=== PATIENT | female | born 1950 | race Caucasian/White ===

== ENCOUNTER 2023-05-08 13:23 | Observation (INO) | payer OTHER ==
--- OUTSIDE RECORDS SUMMARY | 2023-05-08 13:31 | XMS REPORT | Clinical Summary ---
:1950 Author Organization [facility] MD [facility] Center Address [address] [place] [address] Care Team Providers Name Role Phone Josemanuel Bernard MD Unavailable Ted Arias MD Primary Care Provider Hermes Thomas MD Unavailable Lianna Johns MD Primary Care Provider Allergies Active Allergy Reactions Severity Noted Date Comments Codeine GI Intolerance 01/07/2010 Hydrocodone GI Intolerance 07/01/2021 N/V Propoxyphene GI Intolerance 04/18/2021 Propoxyphene Hcl 01/07/2010 Medications Medication Sig Dispensed Refills Start Date End Date Status montelukast Take 1 tablet (10 0 Active (SINGULAIR) 10 mg mg) by mouth tablet daily. simvastatin (ZOCOR) 20 Take 1 tablet by 0 Active mg tablet mouth daily. metoprolol succinate Take 1 tablet (25 0 05/26/2021 Active (TOPROL XL) 25 mg 24 mg) by mouth hr tablet daily. atorvastatin (LIPITOR) Take 1 tablet (10 0 1 Active 10 mg tablet mg) by mouth daily. losartan-hydrochloroth TAKE 1 TABLET BY 0 05/16/2021 Active iazide (HYZAAR) MOUTH DAILY 100-12.5 mg per tablet sertraline (ZOLOFT) 25 Take 1 tablet (25 0 Active mg tablet mg) by mouth every morning. mupirocin (BACTROBAN) Apply topically to 22 g 0 1 Active 2% affected area(s) ointmentIndications: twice daily. Intraductal carcinoma in situ of left breast traMADol (Ultram) 50 Take 1 tablet (50 12 tablet 0 06/26/2021 Active mg tabletIndications: mg) by mouth every Intraductal carcinoma 6 (six) hours as in situ of left breast needed for moderate pain or severe pain. Additional Information Patient not taking. Reason: No longer taking, Reported on 01/08/2022 traZODone (DESYREL) 25 mg Take 1 split tablet (25 0 Active half-tablet mg) by mouth. aspirin 325 mg tablet Take 1 tablet (325 mg) by 0 Active mouth. oxybutynin (DITROPAN-XL) 5 mg daily. 0 05/23/2022 Active 24 hr tablet peg 3350-electrolytes Mix as directed and drink 4000 mL 0 Active (Golytely) 236-22.74-6.74 g as directed. solutionIndications: Colonoscopy planned Active Problems Patient Care Coordination Note Formatting of this note might be differe nt from the original. 11/12/2022 Patient will have COVID testi ng at an outside facility - Toy Problem Noted Date Personal history of colon polyps 11/12/2022 Overview: Added automatically from request for leigh workman [id number] Other specified disorder of breast 07/01/2021 Estrogen receptor positive status (ER+) 06/20/2021 Intraductal papilloma of right breast 05/08/2021 Intraductal carcinoma in situ of left breast 1 Cancer Staging: Clinical stage from 2020: Stage 0 (cTis (DCIS), cN0, cM0, ER+, KS+, HER2: Not Assessed) - Signed by SELENE Price on 05/16/2021 Last Assessment & Plan: Formatting of th is note might be different from the original. Ms. Wiseman is a 71 y/o female s/p bilate ral segmental mastectomies, L SNBX and bilateral mastopexy by Drs. 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 She did not receive adjuvant XRT. She has no evidence of new disease or recurrence on breast exam or breast imaging. She has asked if she can eliminate US for future imaging surveillance. We will plan to bring her back in one year with mariano victor diagnostic MMG. Encounters Date Type Specialty Care Team Description 03/04/2023 Hospital Encounter Radiology Diana, Rickyuct SELENE Brown carcinoma in si tu of left breast 03/04/2023 Ancillary Procedure Radiology Carolynn Bernard PA Thyr oid nodule 03/04/2023 Hospital Encounter Lab Raeann Godoy, Kevinpl asm of PA uncertain behav ior of thyroid glan d 03/04/2023 Travel 02/22/2023 Telephone Radiology Ni Weber MA 01/29/2023 Orders Only Endocrine Surgery Raeann Godoy Neopla sm of PA uncertain behav ior of thyroid glan d (Primary Dx) 01/27/2023 Orders Only Breast Surgical Carolynn Bernard PA Thyroid nodule Oncology (Primary Dx) 01/25/2023 Orders Only Breast Surgical Carolynn Bernard PA Oncology 01/18/2023 Orders Only Breast Surgical Carolynn Bernard PA Thyroid nodule Oncology (Primary Dx) 11/12/2022 Office Visit Gastroenterology, Lianna Johns, Colonosc opy planned (Primary Dx); Hepatology & MD Personal histor y of colonic polyp Nutrition 11/12/2022 NPR Patient Access Ted Arias I, Georgina ASHRAF 11/12/2022 Prep for Surgery Gastroenterology, Shaquille Miller, Pers onal history of colon polyps (Primary Dx); Hepatology & PA Intraductal car cinoma in situ of left breast Nutrition 11/12/2022 Travel 11/10/2022 Travel after 05/08/2022 Immunizations Name Administration Dates Next Due Moderna SARS-CoV-2 Vaccination 01/27/2021, 12/28/2020 Surgical History Surgery Date Site/Laterality Comments HYSTERECTOMY 11/08/2010 - With BSO for ble eding 11/07/2011 SQUAMOUS CELL CARCINOMA 04/08/2021 - Left left jessie ek EXCISION 05/07/2021 BREAST BIOPSY 11/08/1986 - Left x 1; benign 11/07/1987 BREAST CYST ASPIRATION Bilateral multiple times OOPHORECTOMY KS MASTECTOMY PARTIAL 06/23/2021 Breast/Bilateral Procedure : SEGMENTAL MASTECTOMY - SEE D LOC; Surgeon: Ted Arias MD; Location: [facility]; Service: SURG ON C - [place] INJ RADIOACTIVE TRACER 06/23/2021 Breast/Left Proced ure: ISOTOPE FOR ID OF SENTINEL NODE INJECTIO N FOR SENTINEL NODE BIOPSY; Leigh geon: Ted Arias MD; Location: MAIN O R; Service: SURG ON C - [place] INTRAOP SENTINEL LYMPH 06/23/2021 Axilla/Left Proced ure: INTRAOPERATIVE NODE ID W/DYE INJECTION LYMPHATI C MAPPING; Surgeon: Ted Arias MD; Location: [facility]; Service: SURG ON C - [place] BX/EXC LYMPH NODE OPEN 06/23/2021 Axilla/Left Proced ure: SENTINEL NODE DEEP AXILLARY NODE BIOPSY - AXIL LA; Surgeon: Ted Arias MD; Location: MAIN O R; Service: SURG ON C - [place] MASTOPEXY 06/23/2021 Breast/Bilateral Procedure: MAST OPEXY; Surgeon: Johan Romano MD; Location: [facility] IN OR; Service: PLS - P LASTIC SURGERY Medical History Medical History Date Comments Hypertension Hypercholesterolemia Asthma Fibrocystic disease of breast Cyst of breast Family History Medical History Relation Name Comments Melanoma Brother Squamous cell carcinoma Brother On his h ead Colon cancer Father Breast cancer Mother after the s urgery 6 weeks later Relation Name Status Comments Brother Alive Father Mother Social History Tobacco Use Types Packs/Day Years Used Date Smoking Tobacco: Former Smokeless Tobacco: Never Tobacco Cessation: Counseling Given: Yes Comments: smoked for 2 years Alcohol Use Standard Drinks/Week Comments Yes 7 (1 standard drink = 0.6 oz pure alcoho l) nightly Sex Assigned at Date Recorded Female 04/10/2021 2:53 PM CDT Job Start Date Occupation Industry Not on file Not on file Not on file Obstetrics History Para Term AB IAB SAB Ectopic Multiple Living Live Births 2 2 Date Outcome GA Total Labor/2nd/3rd Weight Sex Delivery Anes PTL Rosario A 1 A5 Name Clin Labor Para Para Comments P: 2 Menarche: at age 11 parity: at age 17 history: 3 months total control pills use: 10 years total Hormone replacement therapy use: BioTe c ompounded x3 years LMP: hysterectomy at age 60 surgical men opause Bra Size:38 C Last Filed Vital Signs Vital Sign Reading Time Taken Comments Blood Pressure 148/64 03/04/2023 1:21 PM CDT Pulse 57 03/04/2023 1:21 PM CDT Temperature 36.6 C (97.9 F) 11/12/2022 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 Respiratory Rate 18 03/04/2023 1:21 PM CDT Oxygen Saturation 99% 03/04/2023 1:21 PM CDT Inhaled Oxygen Concentration - - Weight 74.1 kg (163 lb 5.8 oz) 11/12/2022 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 US THYROID FINE NEEDLE Routine 03/04/2023 1:50 Thyroid nodule Results for this ASPIRATION PM CDT procedure are i n the results section. US HEAD NECK SOFT Routine 03/04/2023 1:50 Thyroid nodule Resul ts for this TISSUE PM CDT procedure are i n the results section. CYTOLOGY IMAGE-GUIDED Routine 03/04/2023 12:27 Thyroid nodule Results for this FNA INTERPRETATION PM CDT procedure are in the results section. CYTOLOGY IMAGE-GUIDED Routine 03/04/2023 12:26 Thyroid nodule Results for this FNA INTERPRETATION PM CDT procedure are in the results section. CYTOLOGY IMAGE-GUIDED Routine 03/04/2023 12:26 Thyroid nodule Results for this FNA INTERPRETATION PM CDT procedure are in the results section. THYROID STIMULATING Routine 03/04/2023 9:45 Neoplasm of Resul ts for this HORMONE AM CDT uncertain behavior procedure are in of thyroid gland the results section. FREE THYROXINE Routine 03/04/2023 9:45 Neoplasm of Results fo r this AM CDT uncertain behavior procedure are in of thyroid gland the results section. after 05/08/2022 Results Mammography Digital Diagnostic Bilateral with Og (03/04/2023 2:56 PM CDT) Anatomical Region Laterality Modality Breast Bilateral Mammography Specimen (Source) Anatomical Collection Method Collection Time Re ceived Time Location / / Volume Laterality 03/04/2023 2:57 PM CDT Impressions 03/04/2023 2:57 PM CDT There is no mammographic evidence of malignancy. Follow-up mammogram in 1 year is recomme nded. BI-RADS Category 2: Benign Finding(s) Narrative 03/04/2023 2:57 PM CDT CLINICAL INDICATION: Patient is a 72 year old female and is s een for history of breast cancer MAMMO DIGITAL DIAGNOSTIC BILATERAL W BEKA O Digital Mammogram evaluated with Compute r Aided Detection (CAD). COMPARISON: The present examination has been compare d to prior imaging studies performed at an outside location on 10/12/2018, 10/17 and 10/22/2020, and at [facility] on 04/18/2021 and 01/07/2022. FINDINGS: There are scattered areas of fibroglandu lar density. 1: There is a post-surgical scar in th e axillary tail of the left breast. 2: There are post reduction changes in both breasts. Tomosynthesis performed in CC and MLO pr ojections. Procedure Note Pretty Tripp MD - 03/04/2023 CLINICAL INDICATION: Patient is a 72 year old female and is s een for history of breast cancer MAMMO DIGITAL DIAGNOSTIC BILATERAL W BEKA O Digital Mammogram evaluated with Compute r Aided Detection (CAD). COMPARISON: The present examination has been compare d to prior imaging studies performed at an outside location on 10/12/2018, 10/17 and 10/22/2020, and at [facility] on 04/18/2021 and 01/07/2022. FINDINGS: There are scattered areas of fibroglandu lar density. 1: There is a post-surgical scar in the axillary tail of the left breast. 2: There are post reduction changes in b oth breasts. Tomosynthesis performed in CC and MLO pr ojections. IMPRESSION: There is no mammographic evidence of mal ignancy. Follow-up mammogram in 1 year is recomme nded. BI-RADS Category 2: Benign Finding(s) Dora MORTON IMG MAMMOGRAPHY ORDERABLES US Thyroid Fine Needle Aspiration (03/04/2023 1:50 PM CDT) Anatomical Region Laterality Modality Neck Ultrasound Specimen (Source) Anatomical Collection Method Collection Time Re ceived Time Location / / Volume Laterality 03/04/2023 11:54 AM CDT Impressions 03/04/2023 2:04 PM CDT Multinodular thyroid. There are 3 nodule s in the right mid to right inferior thyroid that will be further investigated with aspiration biopsies. There is no evidence of lateral cervical lymphadenopathy. Procedure: Ultrasound-guided needle biop sy of 3 sites Indication: Newly discovered multinodula r thyroid with 3 nodules of concern. Power Line Installer And Repairer: Alesha Medication: 5 mL of lidocaine 1% solutio n for topical anesthesia. Consent: The procedure was discussed wit h the patient at length and its risks and benefits were explained. There was ample opportunity for questions. The patient was willing to sign informed consent. Technique: We identified the right-sided mid thyroid TR4 nodule, under ultrasound, cleansed the skin and applied topical anesthesia. A 20-gauge sheath system was placed into this nodule and a 22-gauge e chogenic needle was used to obtain sampl e from the nodule. A 2nd 22-gauge needle was also used for 2nd pass. Samples were prepared slides and also into culture medium for cell block as per the instructions of subtle pathology. The 2nd nodule we targeted to the partia lly cystic partially solid nodule with echogenic calcifications. The skin was prepared in the usual sterile manner with topical anesthesia applied. Similar to the 1st nodule, a 20-gauge sheath was place d and 2 22-gauge inner needles with echogenic markings was used to sample this nodule. We make slides and also provided cells for cell block as per the instructions of subtle pathology. The final inferior right thyroid nodule was accessed similarly using a 20-gauge needle mounted in a biopsy gun-type device under direct sonographic visualization. Samples were sent to cytopathology on slides as per the request. The patient tolerated the procedure well and no immediate ill effects were observed. Blood loss was minimal. Patient was discharged to home. Impression: Preliminary results indicates that the r ight mid thyroid TR4 nodule is colloid in nature, the complex partially cystic partially solid nodule with calcifications in the mid thyroid is atypical cells of unknown significance, while the inferior right thyroid lesion is indeterminate favor benign, all on preliminary results. Finals are pending. Narrative 03/04/2023 2:04 PM CDT FULL RESULT: Ivone Examination: US HEAD NECK SOFT TISSUE, U S THYROID FINE NEEDLE ASPIRATION on 03/04/2023 1:50 PM Clinical History and Indication: Breast carcinoma, during the course of the patient's care a enlarged thyroid was noted. 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 Comparison: None Technique: Multiple ultrasound images of performed of the thyroids and anterior cervical lymph nodes. Findings: The right-sided thyroid measur es 2.4 x 5.6 x 2.4 cm and is heterogeneous and multinodular in nature. Within the superior right thyroid a TR 3 lesion of 8 x 8 x 5 mm is present. Adjacent to it is a isoechoic solid nodule, TR 3 of 9 x 8 x 6 mm. Within the mid right thyroid is a hypoechoic solid nodule measuring 1.3 x 1.2 x 0.8 cm, TR 4 (biopsy target 1). Within the mid to inferior right thyroi d is a predominantly solid but with part ially cystic components lesion that measures about 2.5 x 2.1 x 2.1 cm. There are foci of echoing calcification within the lesion along with, though calcifications . This is a TR 4 lesion (biopsy target 2 ). In the inferior right thyroid is a hypoechoic solid lesion with multiple areas of coarse calcification that measures 1.2 x 0.8 x 0.9 cm. This is a TR 4 lesion (biopsy target 3). Within the left-sided isthmus we see a i soechoic solid nodule, TR 3 that measures 1.2 x 1.4 x 0.7 cm. The left-sided thyroid measures 1.6 x 2. 9 x 1.3 cm. Within the superior left thyroid adjacent to the isthmus is a small isoechoic solid nodule, TR 3 that measures 7 x 6 x 4 mm. Within the mid posterior thyroid we see a hypoechoic solid nodule with vague borders that measures about 7 x 7 x 6 mm, TR 4. The bilateral cervical lymph node chains show no evidence of lymph node enlargement. The preauricular lymph nodes and parotid glands as well as the submandibular salivary glands all are unremarkable with no focal lesions. Normal vocal cord motility could be demo nstrated. Procedure Note Raf Eduardo MD - 03/04/2023F ormatting of this note might be different from the original. FULL RESULT: Ivone Examination: US HEAD NECK SOFT TISSUE, U S THYROID FINE NEEDLE ASPIRATION on 03/04/2023 1:50 PM Clinical History and Indication: Breast carcinoma, during the course of the patient's care a enlarged thyroid was noted. 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 Comparison: None Technique: Multiple ultrasound images of performed of the thyroids and anterior cervical lymph nodes. Findings: The right-sided thyroid measur es 2.4 x 5.6 x 2.4 cm and is heterogeneous and multinodular in nature. Within the superior right thyroid a TR 3 lesion of 8 x 8 x 5 mm is present. Adjacent to it is a isoechoic solid nodule, TR 3 of 9 x 8 x 6 mm. Within the mid right thyroid is a hypoechoic solid nodule measuring 1.3 x 1.2 x 0.8 cm, TR 4 (biopsy target 1). Within the mid to inferior right thyroid is a predominantly solid but with partially cystic componen ts lesion that measures about 2.5 x 2.1 x 2.1 cm. There are foci of echoing calcification within the lesion along with, though calcifications. This is a TR 4 lesion (biopsy target 2). In the inferior right thyroid is a h ypoechoic solid lesion with multiple areas of coarse calcification that measures 1.2 x 0.8 x 0.9 cm. This is a TR 4 lesion (biopsy target 3). Within the left-sided isthmus we see a i soechoic solid nodule, TR 3 that measures 1.2 x 1.4 x 0.7 cm. The left-sided thyroid measures 1.6 x 2. 9 x 1.3 cm. Within the superior left thyroid adjacent to the isthmus is a small isoechoic solid nodule, TR 3 that measures 7 x 6 x 4 mm. Within the mid posterior thyroid we see a hypoechoic solid nodule with vague borde rs that measures about 7 x 7 x 6 mm, TR 4. The bilateral cervical lymph node chains show no evidence of lymph node enlargement. The preauricular lymph nodes and parotid glands as well as the submandibular salivary glands all are unremarkable with no focal lesions. Normal vocal cord motility could be demo nstrated. IMPRESSION: Multinodular thyroid. There are 3 nodule s in the right mid to right inferior thyroid that will be further investigated with aspiration biopsies. There is no evidence of lateral cervical lymphadenopathy. Procedure: Ultrasound-guided needle biop sy of 3 sites Indication: Newly discovered multinodula r thyroid with 3 nodules of concern. Power Line Installer And Repairer: Alesha Medication: 5 mL of lidocaine 1% solutio n for topical anesthesia. Consent: The procedure was discussed wit h the patient at length and its risks and benefits were explained. There was ample opportunity for questions. The patient was willing to sign informed consent. Technique: We identified the right-sided mid thyroid TR4 nodule, under ultrasound, cleansed the skin and applied topical anesthesia. A 20-gauge sheath system was placed into this nodule and a 22-gauge echogenic needle was used to obtain sample from the nodul e. A 2nd 22-gauge needle was also used for 2nd pass. Samples were prepared slides and also into culture medium for cell block as per the instructions of subtle pathology. The 2nd nodule we targeted to the partia lly cystic partially solid nodule with echogenic calcifications. The skin was prepared in the usual sterile manner with topical anesthesia applied. Similar to the 1st nodule, a 20-gauge sheath was placed and 2 22-gaug e inner needles with echogenic markings was used to sample this nodule. We make slides and also provided cells for cell block as per the instructions of subtle pathology. The final inferior right thyroid nodule was accessed similarly using a 20-gauge needle mounted in a biopsy gun-type device under direct sonographic visualization. Samples were sent to cytopathology on slides as per the request. The patient tolerated the procedure well and no immediate ill effects were observed. Blood loss was minimal. Patient was discharged to home. Impression: Preliminary results indicates that the r ight mid thyroid TR4 nodule is colloid in nature, the complex partially cystic partially solid nodule with calcifications in the mid thyroid is atypical cells of unknown significance, while the inferior right t hyroid lesion is indeterminate favor benign, all on preliminary results. Finals are pending. Carolynn MORTON IMHakeem US ORDERABLES US HEAD NECK SOFT TISSUE (03/04/2023 1:50 PM CDT) Anatomical Region Laterality Modality Head, Neck Ultrasound Specimen (Source) Anatomical Collection Method Collection Time Re ceived Time Location / / Volume Laterality 03/04/2023 11:54 AM CDT Impressions 03/04/2023 2:04 PM CDT Multinodular thyroid. There are 3 nodule s in the right mid to right inferior thyroid that will be further investigated with aspiration biopsies. There is no evidence of lateral cervical lymphadenopathy. Procedure: Ultrasound-guided needle biop sy of 3 sites Indication: Newly discovered multinodula r thyroid with 3 nodules of concern. Power Line Installer And Repairer: Alesha Medication: 5 mL of lidocaine 1% solutio n for topical anesthesia. Consent: The procedure was discussed wit h the patient at length and its risks and benefits were explained. There was ample opportunity for questions. The patient was willing to sign informed consent. Technique: We identified the right-sided mid thyroid TR4 nodule, under ultrasound, cleansed the skin and applied topical anesthesia. A 20-gauge sheath system was placed into this nodule and a 22-gauge e chogenic needle was used to obtain sampl e from the nodule. A 2nd 22-gauge needle was also used for 2nd pass. Samples were prepared slides and also into culture medium for cell block as per the instructions of subtle pathology. The 2nd nodule we targeted to the partia lly cystic partially solid nodule with echogenic calcifications. The skin was prepared in the usual sterile manner with topical anesthesia applied. Similar to the 1st nodule, a 20-gauge sheath was place d and 2 22-gauge inner needles with echogenic markings was used to sample this nodule. We make slides and also provided cells for cell block as per the instructions of subtle pathology. The final inferior right thyroid nodule was accessed similarly using a 20-gauge needle mounted in a biopsy gun-type device under direct sonographic visualization. Samples were sent to cytopathology on slides as per the request. The patient tolerated the procedure well and no immediate ill effects were observed. Blood loss was minimal. Patient was discharged to home. Impression: Preliminary results indicates that the r ight mid thyroid TR4 nodule is colloid in nature, the complex partially cystic partially solid nodule with calcifications in the mid thyroid is atypical cells of unknown significance, while the inferior right thyroid lesion is indeterminate favor benign, all on preliminary results. Finals are pending. Narrative 03/04/2023 2:04 PM CDT FULL RESULT: Ivone Examination: US HEAD NECK SOFT TISSUE, U S THYROID FINE NEEDLE ASPIRATION on 03/04/2023 1:50 PM Clinical History and Indication: Breast carcinoma, during the course of the patient's care a enlarged thyroid was noted. 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 Comparison: None Technique: Multiple ultrasound images of performed of the thyroids and anterior cervical lymph nodes. Findings: The right-sided thyroid measur es 2.4 x 5.6 x 2.4 cm and is heterogeneous and multinodular in nature. Within the superior right thyroid a TR 3 lesion of 8 x 8 x 5 mm is present. Adjacent to it is a isoechoic solid nodule, TR 3 of 9 x 8 x 6 mm. Within the mid right thyroid is a hypoechoic solid nodule measuring 1.3 x 1.2 x 0.8 cm, TR 4 (biopsy target 1). Within the mid to inferior right thyroi d is a predominantly solid but with part ially cystic components lesion that measures about 2.5 x 2.1 x 2.1 cm. There are foci of echoing calcification within the lesion along with, though calcifications . This is a TR 4 lesion (biopsy target 2 ). In the inferior right thyroid is a hypoechoic solid lesion with multiple areas of coarse calcification that measures 1.2 x 0.8 x 0.9 cm. This is a TR 4 lesion (biopsy target 3). Within the left-sided isthmus we see a i soechoic solid nodule, TR 3 that measures 1.2 x 1.4 x 0.7 cm. The left-sided thyroid measures 1.6 x 2. 9 x 1.3 cm. Within the superior left thyroid adjacent to the isthmus is a small isoechoic solid nodule, TR 3 that measures 7 x 6 x 4 mm. Within the mid posterior thyroid we see a hypoechoic solid nodule with vague borders that measures about 7 x 7 x 6 mm, TR 4. The bilateral cervical lymph node chains show no evidence of lymph node enlargement. The preauricular lymph nodes and parotid glands as well as the submandibular salivary glands all are unremarkable with no focal lesions. Normal vocal cord motility could be demo nstrated. Procedure Note Raf Eduardo MD - 03/04/2023F ormatting of this note might be different from the original. FULL RESULT: Ivone Examination: US HEAD NECK SOFT TISSUE, U S THYROID FINE NEEDLE ASPIRATION on 03/04/2023 1:50 PM Clinical History and Indication: Breast carcinoma, during the course of the patient's care a enlarged thyroid was noted. 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 Comparison: None Technique: Multiple ultrasound images of performed of the thyroids and anterior cervical lymph nodes. Findings: The right-sided thyroid measur es 2.4 x 5.6 x 2.4 cm and is heterogeneous and multinodular in nature. Within the superior right thyroid a TR 3 lesion of 8 x 8 x 5 mm is present. Adjacent to it is a isoechoic solid nodule, TR 3 of 9 x 8 x 6 mm. Within the mid right thyroid is a hypoechoic solid nodule measuring 1.3 x 1.2 x 0.8 cm, TR 4 (biopsy target 1). Within the mid to inferior right thyroid is a predominantly solid but with partially cystic componen ts lesion that measures about 2.5 x 2.1 x 2.1 cm. There are foci of echoing calcification within the lesion along with, though calcifications. This is a TR 4 lesion (biopsy target 2). In the inferior right thyroid is a h ypoechoic solid lesion with multiple areas of coarse calcification that measures 1.2 x 0.8 x 0.9 cm. This is a TR 4 lesion (biopsy target 3). Within the left-sided isthmus we see a i soechoic solid nodule, TR 3 that measures 1.2 x 1.4 x 0.7 cm. The left-sided thyroid measures 1.6 x 2. 9 x 1.3 cm. Within the superior left thyroid adjacent to the isthmus is a small isoechoic solid nodule, TR 3 that measures 7 x 6 x 4 mm. Within the mid posterior thyroid we see a hypoechoic solid nodule with vague borde rs that measures about 7 x 7 x 6 mm, TR 4. The bilateral cervical lymph node chains show no evidence of lymph node enlargement. The preauricular lymph nodes and parotid glands as well as the submandibular salivary glands all are unremarkable with no focal lesions. Normal vocal cord motility could be demo nstrated. IMPRESSION: Multinodular thyroid. There are 3 nodule s in the right mid to right inferior thyroid that will be further investigated with aspiration biopsies. There is no evidence of lateral cervical lymphadenopathy. Procedure: Ultrasound-guided needle biop sy of 3 sites Indication: Newly discovered multinodula r thyroid with 3 nodules of concern. Power Line Installer And Repairer: Alesha Medication: 5 mL of lidocaine 1% solutio n for topical anesthesia. Consent: The procedure was discussed wit h the patient at length and its risks and benefits were explained. There was ample opportunity for questions. The patient was willing to sign informed consent. Technique: We identified the right-sided mid thyroid TR4 nodule, under ultrasound, cleansed the skin and applied topical anesthesia. A 20-gauge sheath system was placed into this nodule and a 22-gauge echogenic needle was used to obtain sample from the nodul e. A 2nd 22-gauge needle was also used for 2nd pass. Samples were prepared slides and also into culture medium for cell block as per the instructions of subtle pathology. The 2nd nodule we targeted to the partia lly cystic partially solid nodule with echogenic calcifications. The skin was prepared in the usual sterile manner with topical anesthesia applied. Similar to the 1st nodule, a 20-gauge sheath was placed and 2 22-gaug e inner needles with echogenic markings was used to sample this nodule. We make slides and also provided cells for cell block as per the instructions of subtle pathology. The final inferior right thyroid nodule was accessed similarly using a 20-gauge needle mounted in a biopsy gun-type device under direct sonographic visualization. Samples were sent to cytopathology on slides as per the request. The patient tolerated the procedure well and no immediate ill effects were observed. Blood loss was minimal. Patient was discharged to home. Impression: Preliminary results indicates that the r ight mid thyroid TR4 nodule is colloid in nature, the complex partially cystic partially solid nodule with calcifications in the mid thyroid is atypical cells of unknown significance, while the inferior right t hyroid lesion is indeterminate favor benign, all on preliminary results. Finals are pending. Carolynn [facility] IMHakeem US ORDERABLES (ABNORMAL) Cytology Image-Guided FNA Interpretation (03/04/2023 12:27 PM CDT) Only the most recent of3 resultswithin the time period is included. Component Value Ref Test Analysis Performed Pathologis t Range Method Time At Signature Gross Specimens procured: 03/04/2023 [facility] Description 2 Diff Quik; 3 Pap Stain Slides 3:20 P M 10 ml, clear pink fluid in RPMI CDT 1 Cytospin Size: 1.2 x 0.9 x 0.8 cm Immediate assessment for specimen adequacy was made x1 by Dr Radha Guajardo. Immediate Adequate 03/04/2023 [facility] Assessment cellularity 3:20 PM CDT Major Indeterminate (A) 03/04/2023 [facility] Electronically Classification 3:20 PM amber d by Nancy Pollack CDT MD Casandra on 03/04/2023 at 3:20 PM Diagnosis Thyroid, right inferior lobe nodule, fine needle aspir ation: 03/04/2023 [facility] Electronically 3:20 PM signed by Nancy Pollack Indeterminate follicular les ion (low cellularity/minimal to no colloid), favor benign CDT MD Casandra on 03/04/2023 at 3:20 PM Comment The aspirate 03/04/2023 [facility] obtained is 3:20 PM sparse possessing CDT few follicular epithelial cells without nuclear atypia. It does not display the abundant colloid of a colloid nodule or the increased cellularity of a follicular lesion/neoplasm. Consequently, this sampling does not permit rendering a more definitive diagnosis. Clinical/radiolog ical correlation is indicated to determine the need for further close follow-up and/or re-aspiration. Retained/Biomark SR: 6 S 03/04/2023 [facility] er Testing 3:20 PM CDT Informational Some tests 03/04/2023 [facility] Points reported here may 3:20 PM have been CDT developed and performance characteristics determined by [facility]. These tests have not been specifically cleared or approved by the U.S. Food and Drug Administration. Specimen Anatomical Collection Method Collection Time Receive d Time (Source) Location / / Volume Laterality Fine Needle Asp 03/04/2023 12:27 03/04/20 23 1:18 (Thyroid, Right PM CDT PM CDT Lobe) Carolynn [facility] CYTOLOGY ORDERABLES Performing Organization Address City/State/ZIP Code Phon e Number [facility] [place] [phone] [facility] TSH (03/04/2023 9:45 AM CDT) athologist Signature TSH 2.23 0.27 - 4.20 [facility] mcunit/mL Comment: Note: New Methodology and Reference Ra nge change effective 02/24/2018 at 1400 Testing Performed at [facility], [address], [address], [place] [address] Specimen Anatomical Collection Method Collection Time Receive d Time (Source) Location / / Volume Laterality Blood 03/04/2023 9:45 AM 04/27/202 3 CDT 10:11 AM CDT Narrative [facility] - 03/04/2023 10:57 AM CDT Please schedule before consult with Dr. Romano Raeann [facility] BLOOD ORDERABLES Performing Organization Address City/State/ZIP Code Phon e Number [facility] [address] [place] [address] [address] Free T4 (03/04/2023 9:45 AM CDT) P athologist Signature T4 Free 1.22 0.93 - 1.70 [facility] ng/dL Comment: Testing Performed at [facility], [address], [address], [place] [address] Specimen Anatomical Collection Method Collection Time Receive d Time (Source) Location / / Volume Laterality Blood 03/04/2023 9:45 AM 3 CDT 10:11 AM CDT Narrative [facility] - 03/04/2023 10:57 AM CDT Please schedule before consult with Dr. Romano Raeann [facility] BLOOD ORDERABLES Performing Organization Address City/[facility]/ZIP Code Phon e Number [facility] [address] [place] [address] [address] after 05/08/2022 Insurance Payer Benefit Plan / Subscriber ID Effective Dates Phone Addre ss Type Group AETNA MEDICARE AETNA MEDICARE [id number] 2021-Presen [address] [place] [address] Nelly Wiseman Personal/Famil Self 1950 [phone] (Home) [place] [address] Advance Directives Code Status Date Activated Date Inactivated Comments Full Code 06/23/2021 7:30 PM 06/24/2021 12:45 AM Care Teams Nurse Companion Relationship Specialty Start Date End Date Josemanuel Bernard MD PCP - External Primary Internal Medicine 04/08/21 [facility] [place] [phone] Ted Arias MD PCP - General Melanoma Surgery 05/01/21 11/09/[address] [place] [id number] Lianna Johns MD PCP - General Gastroenterology, 11/10/22 11/10/[address] [place] [address] [place] [address] [facility] Hermes Thomas MD Physician Radiation Oncology 05/02/[address] [place] [id number]
--- OUTSIDE RECORDS SUMMARY | 2023-05-08 13:34 | XMS REPORT | Continuity of Care Document ---
:1950 Author Organization [facility] t Address [address] [facility]. [address] [place] [address] Care Team Providers Name Role Phone Joana ASHRAF, Josemanuel aMcario Primary Care Physician SYSTEM, PROVIDER NOT IN Attending Clinician Unavailable LAM TRIMBLE Attending Clinician Unavailable Stephanie Forrest Attending Clinician Unavailable BRIGITTE_Adriane_Ubaldo Attending Clinician Unavailable Salty Oliveira MD Attending Clinician [phone] Clay Simmons Attending Clinician Raeann Nye Attending Clinician Beto Plata Attending Clinician Ni Weber MA Attending Clinician Lam Trimble MD Attending Clinician Sami Thao MD, I Attending Clinician Shaquille Pham Attending Clinician Jody Eugene Attending Clinician Unavailable Donna David Attending Clinician Uzair ASHRAF, Lupe Hill Attending Clinician [phone] Lv Carbajal CLOSING COORDINATOR, Georgia Abbott Attending Clinician Nichelle Washington MA Attending Clinician Unavailable SHYAM SARAH Attending Clinician Unavailable UMU CUELLAR Attending Clinician Unavailable TENISHA KOVACS Attending Clinician Unavailable SAMI THAO I Attending Clinician Unavailable BETO GAMEZ Attending Clinician Unavailable RADHA RAI Attending Clinician Unavailable AMADEO RIVAS Attending Clinician Unavailable JADE DIEGO Attending Clinician Unavailable Josemanuel Bernard Attending Clinician Unavailable LAM TRIMBLE Admitting Clinician Unavailable Stephanie Forrest Admitting Clinician Unavailable BRIGITTE_Adriane_Diego_ Admitting Clinician Unavailable SALTY OLIVEIRA Admitting Clinician Unavailable UNDEFINED Admitting Clinician Unavailable SAMI THAO I Admitting Clinician Unavailable Physician, No Primary or Family Admitting Clinician Unavaila ble Payers Payer Name Policy Type Policy Number Effective Date Expiration Date S sammie [employer] MEDICARE PPO [id number] 2021 00:00:00 [employer] (MEDICARE [id number] 2021 REPLACEMENT PPO) 00:00:00 Problems Condition Condition Condition Status Onset Resolution Last Treating Co mments Source Name Details Category Date Date Treatment Clinician Date Personal Personal Disease Active Overview: Un bea history of history of 105 Formattin ity of colon colon 00:00: g of this [place] polyps polyps 00 note might be Aleks butler n from the Cancer original. Center Added automatic ally from request for surgery [id number] Tear of Tear of Problem Active 2021-11 Elise right Right 0-27 Orthope rotator Rotator 00:00: dic cuff Cuff 00 [facility] Pain of Pain of Problem Active Elise left Left 2-09 Orthope shoulder Shoulder 00:00: dic joint Joint 00 Sports Medicin e Other Other Disease Active Univers specified specified 8-24 ity of disorder disorder 00:00: [place] of breast of breast 00 MD [facility] Estrogen Estrogen Disease Active Unive rs receptor receptor 8-13 ity of positive positive 00:00: [place] status status 00 (ER+) (ER+) [facility] Impingemen Impingemen Problem Active A zalea t syndrome t Syndrome 05-29 Or thope of of 00:00: dic shoulder Shoulder 00 Sports region Region Medicin e Sprain of Sprain of Problem Active Aza nelida shoulder Shoulder 05-29 Orthop e and upper and Upper 00:00: dic arm Arm 00 Sports Medicin e Pain of Pain of Problem Active Elise right Right 05-29 Orthope shoulder Shoulder 00:00: dic joint Joint 00 Sports Medicin e Intraducta Intraducta Disease Active U nivers l l 7 ity of papilloma papilloma 00:00[place] right of right 00 breast breast [facility] Intraducta Intraducta Disease Active Last U nivers l l 624 Assessmen ity of carcinoma carcinoma 00:00: t & Plan: [place] in situ of in situ of 00 Formattin left left g of this [facility] breast breast note n might be Cancer different Center from the original. Ms. Nieto is a 71 y/o female s/p bilateral segmental mastectom ies, L SNBX and bilateral mastopexy by Drs. 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 She did not receive adjuvant XRT. She has no evidence of new disease or recurrenc e on breast exam or breast imaging. She has asked if she can eliminate US for future imaging surveilla nce. We will plan to bring her back in one year with bilateral diagnosti c MMG. Hip pain Hip Pain Problem Active Azale a 06-29 Orthope 00:00: dic 00 Sports Medicin e Knee pain Knee Pain Problem Active Aza nelida 06-29 Orthope 00:00: dic 00 Sports Medicin e Allergies, Adverse Reactions, Alerts Allergy Allergy Status Severity Reaction(s) Onset Inactive Treating Comm ents Source Name Type Date Date Clinician Propoxyp Propensi Active GI Method i hene ty to Intolerance 8-10 st adverse 00:00: Hospita reaction 00 l s to drug codeine DA Active U N/V [facility] 3-03 [place] 00:00: Orthope 00 dic Hospita l propoxyp DA Active U N/V 2-0 [facility] hene HCl 3-03 [place] 00:00: Orthope 00 dic Hospita l HYDROCOD DRUG Active Nausea 2021-0 MD ONE INGREDI 8-24 [place] 00:00: n 00 HYDROCOD DRUG Active Nausea 2021-0 MD ONE INGREDI 8-24 [place] 00:00: n 00 HYDROCOD DRUG Active Nausea 2021-0 MD ONE INGREDI 8-24 [place] 00:00: n 00 HYDROCOD DRUG Active Nausea 2021-0 MD ONE INGREDI 8-24 [place] 00:00: n 00 HYDROCOD DRUG Active Nausea 2021-0 MD ONE INGREDI 8-24 [place] 00:00: n 00 HYDROCOD DRUG Active Nausea 2021-0 MD ONE INGREDI 8-24 [place] 00:00: n 00 HYDROCOD DRUG Active Nausea 2021-0 MD ONE INGREDI 8-24 [place] 00:00: n 00 HYDROCOD DRUG Active Nausea 2021-0 MD ONE INGREDI 8-24 [place] 00:00: n 00 HYDROCOD DRUG Active Nausea 2021-0 MD ONE INGREDI 8-24 [place] 00:00: n 00 HYDROCOD DRUG Active Nausea 2021-0 MD ONE INGREDI 8-24 [place] 00:00: n 00 HYDROCOD DRUG Active Nausea 2021-0 MD ONE INGREDI 8-24 [place] 00:00: n 00 HYDROCOD DRUG Active Nausea 2021-0 MD ONE INGREDI 8-24 [place] 00:00: n 00 HYDROCOD DRUG Active Nausea 2021-0 MD ONE INGREDI 8-24 [place] 00:00: n 00 HYDROCOD DRUG Active Nausea 2021-0 MD ONE INGREDI 8-24 [place] 00:00: n 00 HYDROCOD DRUG Active Nausea 2021-0 MD ONE INGREDI 8-24 [place] 00:00: n 00 HYDROCOD DRUG Active Nausea 2021-0 MD ONE INGREDI 8-24 [place] 00:00: n 00 HYDROCOD DRUG Active Nausea 2021-0 MD ONE INGREDI 8-24 [place] 00:00: n 00 HYDROCOD DRUG Active Nausea 2021-0 MD ONE INGREDI 8-24 [place] 00:00: n 00 HYDROCOD DRUG Active Nausea 2021-0 MD ONE INGREDI 8-24 [place] 00:00: n 00 HYDROCOD DRUG Active Nausea 2021-0 MD ONE INGREDI 8-24 [place] 00:00: n 00 HYDROCOD DRUG Active Nausea 2021-0 MD ONE INGREDI 8-24 [place] 00:00: n 00 HYDROCOD DRUG Active Nausea 2021-0 MD ONE INGREDI 8-24 [place] 00:00: n 00 HYDROCOD DRUG Active Nausea 2021-0 MD ONE INGREDI 8-24 [place] 00:00: n 00 HYDROCOD DRUG Active Nausea 2021-0 MD ONE INGREDI 8-24 [place] 00:00: n 00 HYDROCOD DRUG Active Nausea 2021-0 MD ONE INGREDI 8-24 [place] 00:00: n 00 HYDROCOD DRUG Active Nausea 2021-0 MD ONE INGREDI 8-24 [place] 00:00: n 00 HYDROCOD DRUG Active Nausea 2021-0 MD ONE INGREDI 8-24 [place] 00:00: n 00 HYDROCOD DRUG Active Nausea 2021-0 MD ONE INGREDI 8-24 [place] 00:00: n 00 HYDROCOD DRUG Active Nausea 2021-0 MD ONE INGREDI 8-24 [place] 00:00: n 00 HYDROCOD DRUG Active Nausea 2021-0 MD ONE INGREDI 8-24 [place] 00:00: n 00 HYDROCOD DRUG Active Nausea 2021-0 MD ONE INGREDI 8-24 [place] 00:00: n 00 HYDROCOD DRUG Active Nausea 2021-0 MD ONE INGREDI 8-24 [place] 00:00: n 00 HYDROCOD DRUG Active Nausea 2021-0 MD ONE INGREDI 8-24 [place] 00:00: n 00 HYDROCOD DRUG Active Nausea 2021-0 MD ONE INGREDI 8-24 [place] 00:00: n 00 Hydrocod Propensi Active GI 2020-0 N/V Method i one ty to Intolerance 8-24 st adverse 00:00: Hospita reaction 00 l s to drug Hydrocod Propensi Active GI 2020-0 N/V Univer s one ty to Intolerance 8-24 ity o f adverse 00:00: [place] reaction 00 [facility] propoxyp DA Active U N/V 2020-0 [facility] hene HCl 8 [place] 00:00: Orthope 00 dic Hospita l codeine DA Active U N/V 2020-0 [facility] 8-05 [place] 00:00: Orthope 00 dic Hospita l propoxyp DA Active U 2020-0 [facility] hene HCl 8-05 [place] 00:00: Orthope 00 dic Hospita l codeine DA Active U 2020-0 [facility] 8-05 [place] 00:00: Orthope 00 dic Hospita l DARVON Allergy Active 2020-0 Elise to 05-29 Orthope substanc 00:00: dic e 00 Sports Medicin e Acetamin Allergy Active 2020-0 Elise ophen-co to 05-29 Orthope deine substanc 00:00: dic e 00 Sports Medicin e PROPOXYP DRUG Active Nausea 2021-0 MD HENE INGREDI 6-11 [place] 00:00: n 00 PROPOXYP DRUG Active Nausea 2021-0 MD HENE INGREDI 6-11 [place] 00:00: n 00 PROPOXYP DRUG Active Nausea 2021-0 MD HENE INGREDI 6-11 [place] 00:00: n 00 PROPOXYP DRUG Active Nausea 2021-0 MD HENE INGREDI 6-11 [place] 00:00: n 00 PROPOXYP DRUG Active Nausea 2021-0 MD HENE INGREDI 6-11 [place] 00:00: n 00 PROPOXYP DRUG Active Nausea 2021-0 MD HENE INGREDI 6-11 [place] 00:00: n 00 PROPOXYP DRUG Active Nausea 2021-0 MD HENE INGREDI 6-11 [place] 00:00: n 00 PROPOXYP DRUG Active Nausea 2021-0 MD HENE INGREDI 6-11 [place] 00:00: n 00 PROPOXYP DRUG Active Nausea 2021-0 MD HENE INGREDI 6-11 [place] 00:00: n 00 PROPOXYP DRUG Active Nausea 2021-0 MD HENE INGREDI 6-11 [place] 00:00: n 00 PROPOXYP DRUG Active Nausea 2021-0 MD HENE INGREDI 6-11 [place] 00:00: n 00 PROPOXYP DRUG Active Nausea 2021-0 MD HENE INGREDI 6-11 [place] 00:00: n 00 PROPOXYP DRUG Active Nausea 2021-0 MD HENE INGREDI 6-11 [place] 00:00: n 00 PROPOXYP DRUG Active Nausea 2021-0 MD HENE INGREDI 6-11 [place] 00:00: n 00 PROPOXYP DRUG Active Nausea 2021-0 MD HENE INGREDI 6-11 [place] 00:00: n 00 PROPOXYP DRUG Active Nausea 2021-0 MD HENE INGREDI 6-11 [place] 00:00: n 00 PROPOXYP DRUG Active Nausea 2021-0 MD HENE INGREDI 6-11 [place] 00:00: n 00 PROPOXYP DRUG Active Nausea 2021-0 MD HENE INGREDI 6-11 [place] 00:00: n 00 PROPOXYP DRUG Active Nausea 2021-0 MD HENE INGREDI 6-11 [place] 00:00: n 00 PROPOXYP DRUG Active Nausea 2021-0 MD HENE INGREDI 6-11 [place] 00:00: n 00 PROPOXYP DRUG Active Nausea 2021-0 MD HENE INGREDI 6-11 [place] 00:00: n 00 PROPOXYP DRUG Active Nausea 2021-0 MD HENE INGREDI 6-11 [place] 00:00: n 00 PROPOXYP DRUG Active Nausea 2021-0 MD HENE INGREDI 6-11 [place] 00:00: n 00 PROPOXYP DRUG Active Nausea 2021-0 MD HENE INGREDI 6-11 [place] 00:00: n 00 PROPOXYP DRUG Active Nausea 2021-0 MD HENE INGREDI 6-11 [place] 00:00: n 00 PROPOXYP DRUG Active Nausea 2021-0 MD HENE INGREDI 6-11 [place] 00:00: n 00 PROPOXYP DRUG Active Nausea 2021-0 MD HENE INGREDI 6-11 [place] 00:00: n 00 PROPOXYP DRUG Active Nausea 2021-0 MD HENE INGREDI 6-11 [place] 00:00: n 00 PROPOXYP DRUG Active Nausea 2021-0 MD HENE INGREDI 6-11 [place] 00:00: n 00 PROPOXYP DRUG Active Nausea 2021-0 MD HENE INGREDI 6-11 [place] 00:00: n 00 PROPOXYP DRUG Active Nausea 2021-0 MD HENE INGREDI 6-11 [place] 00:00: n 00 PROPOXYP DRUG Active Nausea 2021-0 MD HENE INGREDI 6-11 [place] 00:00: n 00 PROPOXYP DRUG Active Nausea MD HENE INGREDI 04-18 [place] 00:00: n 00 PROPOXYP DRUG Active Nausea MD HENE INGREDI 04-18 [place] 00:00: n 00 Propoxyp Propensi Active GI Univer s hene ty to Intolerance 04-18 ity o f adverse 00:00: [place] reaction 00 MD [facility] propoxyp DA Active U N/V [facility] hene HCl 01-07 [place] 00:00: Orthope 00 dic Hospita l codeine DA Active U N/V [facility] 01-07 [place] 00:00: Orthope 00 dic Hospita l propoxyp DA Active U [facility] hene HCl 01-07 [place] 00:00: Orthope 00 dic Hospita l codeine DA Active U [facility] 01-07 [place] 00:00: Orthope 00 dic Hospita l CODEINE DRUG Active Nausea 2009- MD INGREDI 3- [place] 00:00: n 00 PROPOXYP DRUG Active 2009- MD HENE HCL INGREDI 3- [place] 00:00: n 00 CODEINE DRUG Active Nausea 2009- MD INGREDI 3-02 [place] 00:00: n 00 PROPOXYP DRUG Active 2009-0 MD HENE HCL INGREDI 3- [place] 00:00: n 00 CODEINE DRUG Active Nausea 2009- MD INGREDI 3- [place] 00:00: n 00 PROPOXYP DRUG Active 2009- MD HENE HCL INGREDI 3- [place] 00:00: n 00 CODEINE DRUG Active Nausea 2009-0 MD INGREDI 3-02 [place] 00:00: n 00 PROPOXYP DRUG Active 2009- MD HENE HCL INGREDI 3- [place] 00:00: n 00 CODEINE DRUG Active Nausea 2009- MD INGREDI 3-02 [place] 00:00: n 00 PROPOXYP DRUG Active 2009-0 MD HENE HCL INGREDI 3-02 [place] 00:00: n 00 CODEINE DRUG Active Nausea 2009- MD INGREDI 3-02 [place] 00:00: n 00 PROPOXYP DRUG Active 2009- MD HENE HCL INGREDI 3-02 [place] 00:00: n 00 CODEINE DRUG Active Nausea 2009-0 MD INGREDI 3-02 [place] 00:00: n 00 PROPOXYP DRUG Active 2009-0 MD HENE HCL INGREDI 3-02 [place] 00:00: n 00 CODEINE DRUG Active Nausea 2009-0 MD INGREDI 3-02 [place] 00:00: n 00 PROPOXYP DRUG Active 2009-0 MD HENE HCL INGREDI 3-02 [place] 00:00: n 00 CODEINE DRUG Active Nausea 2009-0 MD INGREDI 3-02 [place] 00:00: n 00 PROPOXYP DRUG Active 2009-0 MD HENE HCL INGREDI 3-02 [place] 00:00: n 00 CODEINE DRUG Active Nausea 2009-0 MD INGREDI 3-02 [place] 00:00: n 00 PROPOXYP DRUG Active 2009-0 MD HENE HCL INGREDI 3-02 [place] 00:00: n 00 CODEINE DRUG Active Nausea 2009-0 MD INGREDI 3-02 [place] 00:00: n 00 PROPOXYP DRUG Active 2009-0 MD HENE HCL INGREDI 3-02 [place] 00:00: n 00 CODEINE DRUG Active Nausea 2009-0 MD INGREDI 3-02 [place] 00:00: n 00 PROPOXYP DRUG Active 2009-0 MD HENE HCL INGREDI 3-02 [place] 00:00: n 00 CODEINE DRUG Active Nausea 2009-0 MD INGREDI 3-02 [place] 00:00: n 00 PROPOXYP DRUG Active 2009-0 MD HENE HCL INGREDI 3-02 [place] 00:00: n 00 CODEINE DRUG Active Nausea 2009-0 MD INGREDI 3-02 [place] 00:00: n 00 PROPOXYP DRUG Active 2009-0 MD HENE HCL INGREDI 3-02 [place] 00:00: n 00 CODEINE DRUG Active Nausea 2009-0 MD INGREDI 3-02 [place] 00:00: n 00 PROPOXYP DRUG Active 2009-0 MD HENE HCL INGREDI 3-02 [place] 00:00: n 00 CODEINE DRUG Active Nausea 2009-0 MD INGREDI 3-02 [place] 00:00: n 00 PROPOXYP DRUG Active 2009-0 MD HENE HCL INGREDI 3-02 [place] 00:00: n 00 CODEINE DRUG Active Nausea 2010-0 MD INGREDI 3-02 [place] 00:00: n 00 PROPOXYP DRUG Active 2009-0 MD HENE HCL INGREDI 3-02 [place] 00:00: n 00 CODEINE DRUG Active Nausea 2010-0 MD INGREDI 3-02 [place] 00:00: n 00 PROPOXYP DRUG Active 2009-0 MD HENE HCL INGREDI 3-02 [place] 00:00: n 00 CODEINE DRUG Active Nausea 2009-0 MD INGREDI 3-02 [place] 00:00: n 00 PROPOXYP DRUG Active 2009-0 MD HENE HCL INGREDI 3-02 [place] 00:00: n 00 CODEINE DRUG Active Nausea 2009-0 MD INGREDI 3-02 [place] 00:00: n 00 PROPOXYP DRUG Active 2009-0 MD HENE HCL INGREDI 3-02 [place] 00:00: n 00 CODEINE DRUG Active Nausea 2009-0 MD INGREDI 3-02 [place] 00:00: n 00 PROPOXYP DRUG Active 2009-0 MD HENE HCL INGREDI 3-02 [place] 00:00: n 00 CODEINE DRUG Active Nausea 2009-0 MD INGREDI 3-02 [place] 00:00: n 00 PROPOXYP DRUG Active 2009-0 MD HENE HCL INGREDI 3-02 [place] 00:00: n 00 CODEINE DRUG Active Nausea 2009-0 MD INGREDI 3-02 [place] 00:00: n 00 PROPOXYP DRUG Active 2009-0 MD HENE HCL INGREDI 3-02 [place] 00:00: n 00 CODEINE DRUG Active Nausea 2009-0 MD INGREDI 3-02 [place] 00:00: n 00 PROPOXYP DRUG Active 2009-0 MD HENE HCL INGREDI 3-02 [place] 00:00: n 00 CODEINE DRUG Active Nausea 2009-0 MD INGREDI 3-02 [place] 00:00: n 00 PROPOXYP DRUG Active 2009-0 MD HENE HCL INGREDI 3-02 [place] 00:00: n 00 CODEINE DRUG Active Nausea 2009-0 MD INGREDI 3-02 [place] 00:00: n 00 PROPOXYP DRUG Active 2009-0 MD HENE HCL INGREDI 3-02 [place] 00:00: n 00 CODEINE DRUG Active Nausea 2009-0 MD INGREDI 3-02 [place] 00:00: n 00 PROPOXYP DRUG Active 2009-0 MD HENE HCL INGREDI 3-02 [place] 00:00: n 00 CODEINE DRUG Active Nausea 2009-0 MD INGREDI 3-02 [place] 00:00: n 00 PROPOXYP DRUG Active 2009-0 MD HENE HCL INGREDI 3-02 [place] 00:00: n 00 CODEINE DRUG Active Nausea 2009-0 MD INGREDI 3-02 [place] 00:00: n 00 PROPOXYP DRUG Active 2009-0 MD HENE HCL INGREDI 3-02 [place] 00:00: n 00 CODEINE DRUG Active Nausea 2009-0 MD INGREDI 3-02 [place] 00:00: n 00 PROPOXYP DRUG Active 2009-0 MD HENE HCL INGREDI 3- [place] 00:00: n 00 CODEINE DRUG Active Nausea 2009-0 MD INGREDI 3- [place] 00:00: n 00 PROPOXYP DRUG Active 2009-0 MD HENE HCL INGREDI 3 [place] 00:00: n 00 CODEINE DRUG Active Nausea 2009-0 MD INGREDI 3-02 [place] 00:00: n 00 PROPOXYP DRUG Active 2009-0 MD HENE HCL INGREDI 3- [place] 00:00: n 00 CODEINE DRUG Active Nausea 2009-0 MD INGREDI 3-02 [place] 00:00: n 00 PROPOXYP DRUG Active 2009-0 MD HENE HCL INGREDI 3-02 [place] 00:00: n 00 CODEINE DRUG Active Nausea 2009-0 MD INGREDI 3-02 [place] 00:00: n 00 PROPOXYP DRUG Active 2009-0 MD HENE HCL INGREDI 3-02 [place] 00:00: n 00 Codeine Propensi Active GI Methodi ty to Intolerance 01-07 st adverse 00:00: Hospita reaction 00 l s to drug Codeine Drug Active GI Univers Allergy Intolerance 01-07 ity of 00:00: [place] 00 MD [facility] Propoxyp Drug Active Univers hene Hcl Allergy 01-07 ity of 00:00: [place] 00 MD [facility] Family History Family Member Diagnosis Comments Start Date Stop Date Source Natural father Cerebral aneurysm [facility] Natural father Colon cancer [facility] Natural [facility] Natural mother Breast cancer Univers ity of [facility] Natural brother Melanoma [facility]it y [facility] Natural brother Squamous cell Univer sity of [place] carcinoma [facility] Social History Social Habit Start Date Stop Date Quantity Comments Source History of tobacco Cigarette Smoker Religious use Hospital History SDOH University o f Alcohol Frequency [facility] History SDOH University o f Alcohol Std Drinks [facility] History [facility] University o f Alcohol Binge [place] MD Jenni luis [facility] Gender identity [facility] Sexual orientation Method ist Hospital History of Social 2023-03-17 2023-03-[address] function 00:00:00 00:00:00 Hospital Exposure to 2023-02-22 2023-03-04 Not sure University of SARS-CoV-2 (event) 00:00:00 09:51:00 [facility] Tobacco use and 2022-06-30 2022-06-30 Smokeless Religious exposure 00:00:00 00:00:00 tobacco non-user Hospital Cigarettes smoked 2022-06-30 2022-06-[address] current (pack per 00:00:00 00:00:00 Hospita l day) - Reported Cigarette 2022-06-30 2022-06-30 Religious pack-years 00:00:00 00:00:00 Hospital Alcohol intake 2021-07-01 2021-07-01 Current drinker Unive rsity of 00:00:00 00:00:00 of alcohol [facility] (finding) [facility] Tobacco Comment 2021-04-18 2021-04-18 smoked for 2 Univers ity of 00:00:00 00:00:00 years [facility] Alcohol Comment 2021-04-18 2021-04-18 nightly Universit y of 00:00:00 00:00:00 [facility] Sex Ass[birth year] Religious 00:00:00 00:00:00 Hospital Smoking Status Start Date Stop Date Source Ex-smoker 2022-06-30 00:00:00 2022-06-30 00:00:00 [facility] Medications Ordered Filled Start Stop Current Ordering Indication Dosage Frequency Signature Comments Components Source Medication Medication Date Date Medication? Clinician (SIG) Name Name simvastatin Yes 1{tbl} Take 1 Un bea (ZOCOR) 20 1-05 tablet by ity of mg tablet 13:57: mouth [place] 04 daily. MD Fink [facility] simvastatin Yes 1{tbl} Take 1 Un bea (ZOCOR) 20 1-05 tablet by ity of mg tablet 13:57: mouth [place] 04 daily. MD Aleks kulkarni [facility] simvastatin Yes 1{tbl} Take 1 Un bea (ZOCOR) 20 1-05 tablet by ity of mg tablet 13:57: mouth [place] 04 daily. MD Aleks kulkarni [facility] simvastatin Yes 1{tbl} Take 1 Un bea (ZOCOR) 20 1-05 tablet by ity of mg tablet 13:57: mouth [place] 04 daily. MD Aleks kulkarni [facility] simvastatin Yes 1{tbl} Take 1 Un bea (ZOCOR) 20 1-05 tablet by ity of mg tablet 13:57: mouth [place] 04 daily. MD Aleks kulkarni [facility] montelukast Yes 10mg Take 1 Univ ers (SINGULAIR) 1-05 tablet (10 it y of 10 mg 13:54: mg) by [place] tablet 20 mouth daily. [facility] sertraline Yes 25mg Take 1 Unive rs (ZOLOFT) 25 1-05 tablet (25 it y of mg tablet 13:54: mg) by [place] 20 mouth every [facility]. [facility] traZODone Yes 25mg Take 1 Univer s (DESYREL) 1-05 split ity of 25 mg 13:54: tablet (25 [place] half-tablet 20 mg) by mouth. [facility] aspirin 325 Yes 325mg Take 1 Uni vers mg tablet 1-05 tablet ity of 13:54: (325 mg) [place] 20 by mouth. MD Fink [facility] montelukast Yes 10mg Take 1 Univ ers (SINGULAIR) 1-05 tablet (10 it y of 10 mg 13:54: mg) by [place] tablet 20 mouth daily. [facility] sertraline 2022-0 Yes 25mg Take 1 Unive rs (ZOLOFT) 25 1-05 tablet (25 it y of mg tablet 13:54: mg) by [place] 20 mouth MD every [place] morning. [facility] traZODone 2022-0 Yes 25mg Take 1 Univer s (DESYREL) 1-05 split ity of 25 mg 13:54: tablet (25 [place] half-tablet 20 mg) by MD mouth. [facility] aspirin 325 2022-0 Yes 325mg Take 1 Uni vers mg tablet 1-05 tablet ity of 13:54: (325 mg) [place] 20 by mouth. MD Fink [facility] montelukast 0 Yes 10mg Take 1 Univ ers (SINGULAIR) 1-05 tablet (10 it y of 10 mg 13:54: mg) by [place] tablet 20 mouth daily. [facility] sertraline 0 Yes 25mg Take 1 Unive rs (ZOLOFT) 25 1-05 tablet (25 it y of mg tablet 13:54: mg) by [place] 20 mouth every [place] morning. [facility] traZODone 0 Yes 25mg Take 1 Univer s (DESYREL) 1-05 split ity of 25 mg 13:54: tablet (25 [place] half-tablet 20 mg) by mouth. [facility] aspirin 325 2022-0 Yes 325mg Take 1 Uni vers mg tablet 1-05 tablet ity of 13:54: (325 mg) [place] 20 by mouth. MD Fink [facility] montelukast 2022-0 Yes 10mg Take 1 Univ ers (SINGULAIR) 1-05 tablet (10 it y of 10 mg 13:54: mg) by [place] tablet 20 mouth daily. [facility] sertraline 2022-0 Yes 25mg Take 1 Unive rs (ZOLOFT) 25 1-05 tablet (25 it y of mg tablet 13:54: mg) by [place] 20 mouth MD every [place] morning. [facility] traZODone 2022-0 Yes 25mg Take 1 Univer s (DESYREL) 1-05 split ity of 25 mg 13:54: tablet (25 [place] half-tablet 20 mg) by mouth. [facility] aspirin 325 Yes 325mg Take 1 Uni vers mg tablet 1-05 tablet ity of 13:54: (325 mg) [place] 20 by mouth. MD Fink [facility] montelukast Yes 10mg Take 1 Univ ers (SINGULAIR) 1-05 tablet (10 it y of 10 mg 13:54: mg) by [place] tablet 20 mouth MD daily. [facility] sertraline Yes 25mg Take 1 Unive rs (ZOLOFT) 25 1-05 tablet (25 it y of mg tablet 13:54: mg) by [place] 20 mouth [facility] traZODone Yes 25mg Take 1 Univer s (DESYREL) 1-05 split ity of 25 mg 13:54: tablet (25 [place] half-tablet 20 mg) by mouth. [facility] aspirin 325 Yes 325mg Take 1 Uni vers mg tablet 1-05 tablet ity of 13:54: (325 mg) [place] 20 by mouth. MD Fink [facility] peg 0 Yes Colonoscopy Mix as Univ [facility] 11-12 planned directed i ty of olytes 00:00: and drink [place] (Golytely) 00 as 236-22.74-6 directed. And erso .74 g n solution [facility] peg 0 Yes Colonoscopy Mix as Univ [place] [id number] 11-12 planned directed i ty of olytes 00:00: and drink [place] (Golytely) 00 as MD Adams-22.74-6 directed. And erso .74 g n solution [facility] peg 0 Yes Colonoscopy Mix as Univ ers [facility] 11-12 planned directed i ty of olytes 00:00: and drink [place] (Golytely) 00 as MD Adams-22.74-6 directed. And erso .74 g n solution [facility] peg 0 Yes Colonoscopy Mix as Univ ers 3350-electr 11-12 planned directed i ty of olytes 00:00: and drink [place] (Golytely) 00 as MD Adams-22.74-6 directed. And erso .74 g n solution [facility] peg 2023-0 Yes Colonoscopy Mix as Univ ers 3350-electr 1-05 planned directed i ty of olytes 00:00: and drink [place] (Golytely) 00 as 236-22.74-6 directed. And erso .74 g n [facility] amoxicillin 2021- No 1{tbl} Q.5D Take 1 M ethodi -pot 8-31 09-[address] clavulanate 00:00: 04:59 mouth 2 Ho spita (Augmentin) 00 :00 (two) l 875-125 mg times a per tablet day for 7 days. amoxicillin 2021- No 1{tbl} Q.5D Take 1 M ethodi -pot 8-31 09-[address] clavulanate 00:00: 04:59 mouth 2 [facility] (Augmentin) 00 :00 (two) l 875-125 mg times a per tablet day for 7 days. amoxicillin 2021- No 1{tbl} Q.5D Take 1 M ethodi -pot 8-31 09-[address] clavulanate 00:00: 04:59 mouth 2 [facility] (Augmentin) 00 :00 (two) l 875-125 mg times a per tablet day for 7 days. amoxicillin 2021- No 1{tbl} Q.5D Take 1 M ethodi -pot 8-31 09-[address] clavulanate 00:00: 04:59 mouth 2 [facility] (Augmentin) 00 :00 (two) l 875-125 mg times a per tablet day for 7 days. amoxicillin 2021- No 1{tbl} Q.5D Take 1 M ethodi -pot 8-31 09-[address] clavulanate 00:00: 04:59 mouth 2 [facility] (Augmentin) 00 :00 (two) l 875-125 mg times a per tablet day for 7 days. amoxicillin 2021- No 1{tbl} Q.5D Take 1 M ethodi -pot 8-31 09-[address] clavulanate 00:00: 04:59 mouth 2 [facility] (Augmentin) 00 :00 (two) l 875-125 mg times a per tablet day for 7 days. aspirin 325 2022-0 Yes 325mg QD Take 325 M ethodi MG tablet 8-[address] 15:54: mouth [facility] 08 daily. l aspirin 325 2022-0 Yes 325mg QD Take 325 M ethodi MG tablet 8-[address] 15:54: mouth [facility] 08 daily. l aspirin 325 2022-0 Yes 325mg QD Take 325 M ethodi MG tablet 8-[address] 15:54: mouth [facility] 08 daily. l aspirin 325 2022-0 Yes 325mg QD Take 325 M ethodi MG tablet 8-[address] 15:54: mouth [facility] 08 daily. l aspirin 325 2022-0 Yes 325mg QD Take 325 M ethodi MG tablet 8-[address] 15:54: mouth [facility] 08 daily. l aspirin 325 2022-0 Yes 325mg QD Take 325 M ethodi MG tablet 8-[address] 15:54: mouth [facility] 08 daily. l sertraline 2022-0 Yes 25mg QD Take 1 [facility] (ZOLOFT) 25 8-[address] MG tablet 00:00: mouth [facility] 00 daily. l sertraline 2022-0 Yes 25mg QD Take 1 [facility] (ZOLOFT) 25 8-[address] MG tablet 00:00: mouth [facility] 00 daily. l sertraline 2022-0 Yes 25mg QD Take 1 [facility] (ZOLOFT) 25 8-[address] MG tablet 00:00: mouth [facility] 00 daily. l sertraline 2022-0 Yes 25mg QD Take 1 [facility] di (ZOLOFT) 25 8-[address] MG tablet 00:00: mouth [facility] 00 daily. l sertraline 2022-0 Yes 25mg QD Take 1 [facility] di (ZOLOFT) 25 8-[address] MG tablet 00:00: mouth [facility] 00 daily. l sertraline 2022-0 Yes 25mg QD Take 1 [facility] di (ZOLOFT) 25 8-[address] MG tablet 00:00: mouth [facility] 00 daily. l oxybutynin 2022-0 Yes 5mg QD Take 1 [facility] di XL 7-[address] (DITROPAN-X 00:00: mouth [facility]) 5 MG 24 00 daily. l hr tablet oxybutynin 2-0 Yes 5mg QD Take 1 [facility] di XL 7-[address] (DITROPAN-X 00:00: mouth [facility]) 5 MG 24 00 daily. l hr tablet oxybutynin 2022-0 Yes 5mg QD Take 1 [facility] di XL 7-[address] (DITROPAN-X 00:00: mouth [facility]) 5 MG 24 00 daily. l hr tablet oxybutynin 2022-0 Yes 5mg QD Take 1 [facility] di XL 7-[address] (DITROPAN-X 00:00: mouth [facility] L) 5 MG 24 00 daily. l hr tablet oxybutynin 2022-0 Yes 5mg QD Take 1 [facility] di XL 7-[address] (DITROPAN-X 00:00: mouth [facility]pi ta L) 5 MG 24 00 daily. l hr tablet oxybutynin 2022-0 Yes daily. Unive rs (DITROPAN-X 7-16 ity of L) 5 mg 24 00:00: [place] hr tablet 00 [facility] oxybutynin 2022-0 Yes daily. Unive rs (DITROPAN-X 7-16 ity of L) 5 mg 24 00:00: [place] hr tablet 00 [facility] oxybutynin 2-0 Yes daily. Unive rs (DITROPAN-X 7-16 ity of L) 5 mg 24 00:00: [place] hr tablet 00 [facility] oxybutynin 2022-0 Yes daily. Unive rs (DITROPAN-X 7-16 ity of L) 5 mg 24 00:00: [place] hr tablet 00 [facility] oxybutynin 2022-0 Yes 5mg QD Take 1 Metho di XL 7-[address] (DITROPAN-X 00:00: mouth Hospi ta L) 5 MG 24 00 daily. l hr tablet oxybutynin 2022-0 Yes daily. Unive rs (DITROPAN-X 7-16 ity of L) 5 mg 24 00:00: [place] hr [facility]0 Yes 25mg QD Take 25 mg [facility] (DESYREL) 5-[address] 50 MG 00:00: nightly. [facility]ospita tablet 00 l traZODone 2022-0 Yes 25mg QD Take 25 mg [facility] (DESYREL) 5-[address] 50 MG 00:00: nightly. [facility]ospita tablet 00 l traZODone 2022-0 Yes 25mg QD Take 25 mg [facility] (DESYREL) 5-[address] 50 MG 00:00: nightly. [facility]ospita tablet 00 l traZODone 2022-0 Yes 25mg QD Take 25 mg [facility] (DESYREL) 5-[address] 50 MG 00:00: nightly. [facility]ospita tablet 00 l traZODone 2022-0 Yes 25mg QD Take 25 mg [facility] (DESYREL) 5-[address] 50 MG 00:00: nightly. [facility]ospita tablet 00 l traZODone 2022-0 Yes 25mg QD Take 25 mg [facility] (DESYREL) 5-[address] 50 MG 00:00: nightly. [facility]ospita tablet 00 l metoprolol 2022-0 Yes 25mg QD Take 25 mg M ethodi succinate 5-[address] XL 00:00: daily. [facility]ospita (TOPROL-XL) 00 l 25 mg 24 hr tablet montelukast 2022-0 Yes 10mg QD Take 10 mg [facility] (SINGULAIR) 5-[address] 10 mg 00:00: nightly. [facility]ospita tablet 00 l metoprolol 2022-0 Yes 25mg QD Take 25 mg M ethodi succinate 5-[address] XL 00:00: daily. [facility]ospita (TOPROL-XL) 00 l 25 mg 24 hr tablet montelukast 2022-0 Yes 10mg QD Take 10 mg [facility] (SINGULAIR) 5-[address] 10 mg 00:00: nightly. [facility]ospita tablet 00 l metoprolol 2022-0 Yes 25mg QD Take 25 mg M ethodi succinate 5-[address] XL 00:00: daily. [facility]ospita (TOPROL-XL) 00 l 25 mg 24 hr tablet montelukast 2022-0 Yes 10mg QD Take 10 mg [facility] (SINGULAIR) 5-[address] 10 mg 00:00: nightly. [facility]ospita tablet 00 l metoprolol 2022-0 Yes 25mg QD Take 25 mg M ethodi succinate 5-[address] XL 00:00: daily. Hospita (TOPROL-XL) 00 l 25 mg 24 hr tablet montelukast 2022-0 Yes 10mg QD Take 10 mg [facility] (SINGULAIR) 5-[address] 10 mg 00:00: nightly. [facility]ospita tablet 00 l metoprolol 2022-0 Yes 25mg QD Take 25 mg M ethodi succinate 5-[address] XL 00:00: daily. [facility]ospita (TOPROL-XL) 00 l 25 mg 24 hr tablet montelukast 2022-0 Yes 10mg QD Take 10 mg [facility] (SINGULAIR) 5-[address] 10 mg 00:00: nightly. [facility]ospita tablet 00 l montelukast 2022-0 Yes 10mg QD Take 10 mg [facility] (SINGULAIR) 5-[address] 10 mg 00:00: nightly. Hospita tablet 00 l metoprolol 2022-0 Yes 25mg QD Take 25 mg M ethodi succinate 5-[address] XL 00:00: daily. Hospita (TOPROL-XL) 00 l 25 mg 24 hr tablet atorvastati 2022-0 Yes 10mg QD Take 10 mg [facility] (LIPITOR) 4-[address] 10 mg 00:00: daily. [facility]ospita tablet 00 l atorvastati 2022-0 Yes 10mg QD Take 10 mg [facility] (LIPITOR) 4-[address] 10 mg 00:00: daily. [facility]ospita tablet 00 l atorvastati 2022-0 Yes 10mg QD Take 10 mg [facility] (LIPITOR) 4-[address] 10 mg 00:00: daily. [facility]ospita tablet 00 l atorvastati 2022-0 Yes 10mg QD Take 10 mg [facility] (LIPITOR) 4-[address] 10 mg 00:00: daily. [facility]ospita tablet 00 l atorvastati 2022-0 Yes 10mg QD Take 10 mg [facility] (LIPITOR) 4-[address] 10 mg 00:00: daily. [facility]ospita tablet 00 l atorvastati 2022-0 Yes 10mg QD Take 10 mg [facility] (LIPITOR) 4-[address] 10 mg 00:00: daily. [facility]ospita tablet 00 l losartan-hy 2-0 Yes 1{tbl} QD Take 1 [facility] drochloroth 4-[address] iazide 00:00: mouth [facility]ospita (HYZAAR) 00 daily. l 100-12.5 mg per tablet losartan-hy 2-0 Yes 1{tbl} QD Take 1 [facility] drochloroth 4-[address] iazide 00:00: mouth [facility]ospita (HYZAAR) 00 daily. l 100-12.5 mg per tablet losartan-hy 2021-0 Yes 1{tbl} QD Take 1 [facility] drochloroth 4-[address] iazide 00:00: mouth [facility]ospita (HYZAAR) 00 daily. l 100-12.5 mg per tablet losartan-hy 2021-0 Yes 1{tbl} QD Take 1 [facility] drochloroth 4-[address] iazide 00:00: mouth [facility]ospita (HYZAAR) 00 daily. l 100-12.5 mg per tablet losartan-hy 2021-0 Yes 1{tbl} QD Take 1 [facility] drochloroth 4-[address] iazide 00:00: mouth [facility]ospita (HYZAAR) 00 daily. l 100-12.5 mg per tablet losartan-hy 2021-0 Yes 1{tbl} QD Take 1 [facility] drochloroth 4-[address] iazide 00:00: mouth [facility]ospita (HYZAAR) 00 daily. l 100-12.5 mg per tablet traZODone 2021-0 Yes 25mg Take 25 mg Un [facility] (DESYREL) 3-03 by mouth. ity o f 25 mg 15:23: [place] [facility]t [facility] 2021-0 Yes 325mg Take 325 U nivers mg tablet 3-03 mg by ity of 15:23: mouth. [place] [facility] tra[facility]one 2021-0 Yes 25mg Take 25 mg Un bea (DESYREL) 3-03 by mouth. ity o f 25 mg 15:23: [place] [facility]tablet [facility] aspirin 325 2021-0 Yes 325mg Take 325 U nivers mg tablet 3-03 mg by ity of 15:23: mouth. [place] 41 MD Aleks kulkarni [facility] montelukast Yes 1{tbl} Take 1 Un bea (SINGULAIR) 3-03 tablet by ity of 10 mg 15:15: mouth [place] tablet 30 daily. MD Aleks kulkarni [facility] simvastatin Yes 1{tbl} Take 1 Un bea (ZOCOR) 20 3-03 tablet by ity of mg tablet 15:15: mouth [place] 30 daily. MD Aleks kulkarni [facility] sertraline Yes 25mg Take 25 mg U nivers (ZOLOFT) 25 3-03 by mouth ity of mg tablet 15:15: every [place] 30 morning. MD Aleks kulkarni [facility] montelukast Yes 1{tbl} Take 1 Un bea (SINGULAIR) 3-03 tablet by ity of 10 mg 15:15: mouth [place] tablet 30 daily. MD Aleks kulkarni [facility] simvastatin Yes 1{tbl} Take 1 Un bea (ZOCOR) 20 3-03 tablet by ity of mg tablet 15:15: mouth [place] 30 daily. MD Aleks kulkarni [facility] sertraline Yes 25mg Take 25 mg U nivers (ZOLOFT) 25 3-03 by mouth ity of mg tablet 15:15: every [place] 30 morning. 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 [facility] atorvastati Yes 10mg Take 10 mg Univers n (LIPITOR) 7-21 by mouth ity of 10 mg 00:00: daily. [place] tablet 00 MD [facility] atorvastati Yes 10mg Take 10 mg Univers n (LIPITOR) 7-21 by mouth ity of 10 mg 00:00: daily. [place] tablet 00 MD [facility] atorvastati Yes 10mg Take 1 Univ ers n (LIPITOR) 7-21 tablet (10 it y of 10 mg 00:00: mg) by [place] tablet 00 mouth MD daily. [facility] atorvastati Yes 10mg Take 1 Univ ers n (LIPITOR) 7-21 tablet (10 it y of 10 mg 00:00: mg) by [place] tablet 00 mouth MD daily. [facility] atorvastati Yes 10mg Take 1 Univ ers n (LIPITOR) 7-21 tablet (10 it y of 10 mg 00:00: mg) by [place] tablet 00 mouth MD daily. [facility] atorvastati Yes 10mg Take 1 Univ ers n (LIPITOR) 7-21 tablet (10 it y of 10 mg 00:00: mg) by [place] tablet 00 mouth MD daily. [facility] atorvastati Yes 10mg Take 1 Univ ers n (LIPITOR) 7-21 tablet (10 it y of 10 mg 00:00: mg) by [place] tablet 00 mouth MD daily. [facility] metoprolol Yes 25mg Take 25 mg U nivers succinate 7-19 by mouth ity of (TOPROL XL) 00:00[place] 25 mg 24 hr 00 MD tablet [facility] metoprolol Yes 25mg Take 25 mg U nivers succinate 7-19 by mouth ity of (TOPROL XL) 00:00: [place]. [place] 25 mg 24 hr 00 MD tablet [facility] metoprolol Yes 25mg Take 1 Unive rs succinate 7-19 tablet (25 ity of (TOPROL XL) 00:00: mg[place] mg 24 hr 00 mouth MD tablet daily. [facility] metoprolol Yes 25mg Take 1 Unive rs succinate 7-19 tablet (25 ity of (TOPROL XL) 00:00: mg[place] mg 24 hr 00 mouth MD tablet daily. [facility] metoprolol Yes 25mg Take 1 Unive rs succinate 7-19 tablet (25 ity of (TOPROL XL) 00:00: mg[place] mg 24 hr 00 mouth MD tablet daily. [facility] metoprolol Yes 25mg Take 1 Unive rs succinate 7-19 tablet (25 ity of (TOPROL XL) 00:00: mg[place] mg 24 hr 00 mouth MD tablet daily. [facility] metoprolol Yes 25mg Take 1 Unive rs succinate 7-19 tablet (25 ity of (TOPROL XL) 00:00: mg[place] mg 24 hr 00 mouth MD tablet daily. [facility] losartan-hy Yes TAKE 1 Univ ers drochloroth 7-09 TABLET BY ity of iazide 00:00: MOUTH [place] (HYZAAR) 00 DAILY 100-12.5 mg [facility] losartan-hy 2021-0 Yes TAKE 1 Univ ers drochloroth 7-09 TABLET BY ity of iazide 00:00: MOUTH [place] (HYZAAR) 00 DAILY MD 100-12.5 mg [place] per tablet n [facility] losartan-hy 0 Yes TAKE 1 Univ ers drochloroth 7-09 TABLET BY ity of iazide 00:00: MOUTH [place] (HYZAAR) 00 DAILY MD 100-12.5 mg [place] per tablet n [facility] losartan- 2020-0 Yes TAKE 1 Univ ers drochloroth 7-09 TABLET BY ity of iazide 00:00: MOUTH [place] (HYZAAR) 00 DAILY MD 100-12.5 mg [place] per tablet n [facility] losartan- 0 Yes TAKE 1 Univ ers drochloroth 7-09 TABLET BY ity of iazide 00:00: MOUTH [place] (HYZAAR) 00 DAILY MD 100-12.5 mg [place] per tablet n [facility] losartan- 0 Yes TAKE 1 Univ ers drochloroth 7-09 TABLET BY ity of iazide 00:00: MOUTH [place] (HYZAAR) 00 DAILY MD 100-12.5 mg [place] per tablet n [facility] losartan- 0 Yes TAKE 1 Univ ers drochloroth 7-09 TABLET BY ity of iazide 00:00: MOUTH [place] (HYZAAR) 00 DAILY MD 100-12.5 mg Anders[place] per tablet [facility] metoprolol metoprolol No metoprolol Elise succinate succinate succinate [facility] ER 25 mg ER 25 mg ER 25 mg dic tablet,exte tablet,exte tablet,ext Sports nded nded ended Medicin release 24 release 24 release 24 e hr hr hr montelukast montelukast No montelukas Elise 10 mg 10 mg t 10 mg [facility] tablet TAKE tablet TAKE tablet dic 1 TABLET BY 1 TABLET BY TAKE 1 Sports MOUTH EVERY MOUTH EVERY TABLET BY Medicin DAY DAY MOUTH e EVERY DAY oxybutynin oxybutynin No oxybutynin Elise chloride ER chloride ER chloride [facility] 5 mg 5 mg ER 5 mg dic tablet,exte tablet,exte tablet,ext Sports nded nded ended Medicin release 24 release 24 release 24 e hr hr hr prednisone prednisone No prednisone Elise 5 mg tablet 5 mg tablet 5 mg O rthope TAKE 1 TAKE 1 tablet dic TABLET BY TABLET BY TAKE 1 Spo rts MOUTH EVERY MOUTH EVERY TABLET BY Medicin DAY DAY MOUTH e EVERY DAY sertraline sertraline No sertraline Elise 25 mg 25 mg 25 mg [facility] tablet tablet tablet dic Sports Medicin e simvastatin simvastatin No simvastati Elise 20 mg 20 mg n 20 mg [facility] tablet tablet tablet dic Sports Medicin e Suprep Suprep No Suprep Elise Bowel Prep Bowel Prep Bowel Prep [facility] Kit 17.5 Kit 17.5 Kit 17.5 dic gram-3.13 gram-3.13 gram-3.13 Sports gram-1.6 gram-1.6 gram-1.6 Med icin gram oral gram oral gram oral e solution solution solution trazodone trazodone No trazodone Elise 50 mg 50 mg 50 mg [facility] tablet tablet tablet dic Sports Medicin e triazolam triazolam No triazolam Elise 0.25 mg 0.25 mg 0.25 mg Orth[facility] e tablet tablet tablet dic Sports Medicin e amoxicillin amoxicillin No amoxicilli Elise 500 mg 500 mg n 500 mg [facility] capsule capsule capsule dic Sports Medicin e amoxicillin amoxicillin No amoxicilli Elise [id number] n 875 [facility] mg-potassiu mg-potassiu mg-potassi dic m m Sports clavulanate clavulanate clavulanat Medicin 125 mg 125 mg e 125 mg e tablet tablet tablet aspirin 325 aspirin 325 No aspirin Elise mg tablet mg tablet 325 mg Ort hope RX by other RX by other tablet RX dic MD by other Sports MD Medicin e atorvastati atorvastati No atorvastat Elise n 10 mg n 10 mg in 10 mg Orth[facility] pe tablet tablet tablet dic Sports Medicin e azithromyci azithromyci No azithromyc Elise n 250 mg n 250 mg in 250 mg Or thope tablet 2 tablet 2 tablet 2 dic TABLETS BY TABLETS BY TABLETS BY Sports MOUTH ON MOUTH ON MOUTH ON Med icin 1ST DAY, 1ST DAY, 1ST DAY, e THEN 1 THEN 1 THEN 1 TABLET BY TABLET BY TABLET BY MOUTH DAILY MOUTH DAILY MOUTH FOR FOUR FOR FOUR DAILY FOR DAYS DAYS FOUR DAYS benzonatate benzonatate No benzonatat Elise 100 mg 100 mg e 100 mg [facility] capsule capsule capsule dic TAKE 1 TAKE 1 TAKE 1 Sports CAPSULE BY CAPSULE BY CAPSULE BY Medicin MOUTH FOUR MOUTH FOUR MOUTH FOUR e TIMES DAILY TIMES DAILY TIMES NEEDED NEEDED DAILY FOR COUGH FOR COUGH NEEDED FOR COUGH doxycycline doxycycline No doxycyclin Elise monohydrate monohydrate e O rthope 100 mg 100 mg monohydrat dic capsule capsule e 100 mg Sport s capsule Medicin e ivermectin ivermectin No ivermectin Elise 3 mg tablet 3 mg tablet 3 mg O rthope TAKE 4 TAKE 4 tablet dic TABLETS BY TABLETS BY TAKE 4 S ports MOUTH ON MOUTH ON TABLETS BY M edicin DAY 1 AND DAY 1 AND MOUTH ON e DAY 3 DAY 3 DAY 1 AND DAY 3 lorazepam 1 lorazepam 1 No lorazepam Elise mg tablet mg tablet 1 mg Ortho pe tablet dic Sports Medicin e losartan losartan No losartan Aza nelida 100 100 100 [facility] mg-hydrochl mg-hydrochl mg-hydroch dic orothiazide orothiazide lorothiazi Sports 12.5 mg 12.5 mg de 12.5 mg Med icin tablet TAKE tablet TAKE tablet e 1 TABLET BY 1 TABLET BY TAKE 1 MOUTH EVERY MOUTH EVERY TABLET BY DAY DAY MOUTH EVERY DAY meloxicam meloxicam No meloxicam Elise 15 mg 15 mg 15 mg [facility] tablet tablet tablet dic Sports Medicin e methylpredn methylpredn No methylpred Elise isolone 4 isolone 4 nisolone 4 [facility] mg tablets mg tablets mg tablets dic in a dose in a dose in a dose Sports pack pack pack Medicin e metoprolol metoprolol No metoprolol Elise succinate succinate succinate [facility] ER 25 mg ER 25 mg ER 25 mg dic tablet,exte tablet,exte tablet,ext Sports nded nded ended Medicin release 24 release 24 release 24 e hr hr hr montelukast montelukast No montelukas Elise 10 mg 10 mg t 10 mg [facility] tablet TAKE tablet TAKE tablet dic 1 TABLET BY 1 TABLET BY TAKE 1 Sports MOUTH EVERY MOUTH EVERY TABLET BY Medicin DAY DAY MOUTH e EVERY DAY oxybutynin oxybutynin No oxybutynin Elise chloride ER chloride ER chloride [facility] 5 mg 5 mg ER 5 mg dic tablet,exte tablet,exte tablet,ext Sports nded nded ended Medicin release 24 release 24 release 24 e hr hr hr prednisone prednisone No prednisone Elise 5 mg tablet 5 mg tablet 5 mg O rthope TAKE 1 TAKE 1 tablet dic TABLET BY TABLET BY TAKE 1 Spo rts MOUTH EVERY MOUTH EVERY TABLET BY Medicin DAY DAY MOUTH e EVERY DAY sertraline sertraline No sertraline Elise 25 mg 25 mg 25 mg [facility] tablet tablet tablet dic Sports Medicin e simvastatin simvastatin No simvastati Elise 20 mg 20 mg n 20 mg [facility] tablet tablet tablet dic Sports Medicin e trazodone trazodone No trazodone Elise 50 mg 50 mg 50 mg [facility] tablet tablet tablet dic Sports Medicin e triazolam triazolam No triazolam Elise 0.25 mg 0.25 mg 0.25 mg Orth[facility] e tablet tablet tablet dic Sports Medicin e amoxicillin amoxicillin No amoxicilli Elise 500 mg 500 mg n 500 mg [facility] capsule capsule capsule dic Sports Medicin e amoxicillin amoxicillin No amoxicilli Elise [id number] n 875 [facility] mg-potassiu mg-potassiu mg-potassi dic m m Sports clavulanate clavulanate clavulanat Medicin 125 mg 125 mg e 125 mg e tablet tablet tablet aspirin 325 aspirin 325 No aspirin Elise mg tablet mg tablet 325 mg Ort hope RX by other RX by other tablet RX dic MD MD by other Sports MD Medicin e atorvastati atorvastati No atorvastat Elise n 10 mg n 10 mg in 10 mg Orth[facility] pe tablet tablet tablet dic Sports Medicin e azithromyci azithromyci No azithromyc Elise n 250 mg n 250 mg in 250 mg Or thope tablet 2 tablet 2 tablet 2 dic TABLETS BY TABLETS BY TABLETS BY Sports MOUTH ON MOUTH ON MOUTH ON Med icin 1ST DAY, 1ST DAY, 1ST DAY, e THEN 1 THEN 1 THEN 1 TABLET BY TABLET BY TABLET BY MOUTH DAILY MOUTH DAILY MOUTH FOR FOUR FOR FOUR DAILY FOR DAYS DAYS FOUR DAYS benzonatate benzonatate No benzonatat Elise 100 mg 100 mg e 100 mg [facility] capsule capsule capsule dic TAKE 1 TAKE 1 TAKE 1 Sports CAPSULE BY CAPSULE BY CAPSULE BY Medicin MOUTH FOUR MOUTH FOUR MOUTH FOUR e TIMES DAILY TIMES DAILY TIMES NEEDED NEEDED DAILY FOR COUGH FOR COUGH NEEDED FOR COUGH doxycycline doxycycline No doxycyclin Elise monohydrate monohydrate e O rthope 100 mg 100 mg monohydrat dic capsule capsule e 100 mg Sport s capsule Medicin e ivermectin ivermectin No ivermectin Elise 3 mg tablet 3 mg tablet 3 mg O rthope TAKE 4 TAKE 4 tablet dic TABLETS BY TABLETS BY TAKE 4 S ports MOUTH ON MOUTH ON TABLETS BY M edicin DAY 1 AND DAY 1 AND MOUTH ON e DAY 3 DAY 3 DAY 1 AND DAY 3 lorazepam 1 lorazepam 1 No lorazepam Elise mg tablet mg tablet 1 mg Orth[facility] pe tablet dic Sports Medicin e losartan losartan No losartan Aza nelida 100 100 100 [facility] mg-hydrochl mg-hydrochl mg-hydroch dic orothiazide orothiazide lorothiazi Sports 12.5 mg 12.5 mg de 12.5 mg Med icin tablet TAKE tablet TAKE tablet e 1 TABLET BY 1 TABLET BY TAKE 1 MOUTH EVERY MOUTH EVERY TABLET BY DAY DAY MOUTH EVERY DAY meloxicam meloxicam No meloxicam Elise 15 mg 15 mg 15 mg [facility] tablet tablet tablet dic Sports Medicin e methylpredn methylpredn No methylpred Elise isolone 4 isolone 4 nisolone 4 [facility] mg tablets mg tablets mg tablets dic in a dose in a dose in a dose Sports pack pack pack Medicin e metoclopram metoclopram No metoclopra Elise yoel 10 mg yoel 10 mg mide 10 mg [facility] tablet tablet tablet dic Sports Medicin e Immunizations Ordered Filled Immunization Date Status Comments [facility] Immunization Name Name Swati SARS-CoV-2 2021-01-27 Completed Univer sity of Vaccination 00:00:00 Levy Díaz [facility] SARS-CoV-2 2021-01-27 Completed Univer sity of Vaccination 00:00:00 Levy Díaz [facility] SARS-CoV-2 2021-01-27 Completed Univer sity of Vaccination 00:00:00 Levy Díaz [facility] SARS-CoV-2 2021-01-27 Completed Univer sity of Vaccination 00:00:00 Levy Díaz [facility] SARS-CoV-2 2021-01-27 Completed Univer sity of Vaccination 00:00:00 Levy Díaz [facility] SARS-CoV-2 2021-01-27 Completed Univer sity of Vaccination 00:00:00 [facility] 2021-01-27 Completed Univer sity of Vaccination 00:00:00 Levy Díaz [facility] SARS-CoV-2 2020-12-28 Completed Univer sity of Vaccination 00:00:00 Levy Díaz [facility] SARS-CoV-2 2020-12-28 Completed Univer sity of Vaccination 00:00:00 Levy philippemercy [facility] SARS-CoV-2 2020-12-28 Completed Univer sity of Vaccination 00:00:00 Levy Díaz [facility] SARS-CoV-2 2020-12-28 Completed Univer sity of Vaccination 00:00:00 Levy Díaz [facility] SARS-CoV-2 2020-12-28 Completed Univer sity of Vaccination 00:00:00 Levy Díaz [facility] SARS-CoV-2 2020-12-28 Completed Univer sity of Vaccination 00:00:00 Levy Díaz [facility] SARS-CoV-2 2020-12-28 Completed Univer sity of Vaccination 00:00:00 Levy Díaz [facility] Vital Signs Vital Name Observation Time Observation Value Comments Source HEIGHT 2021-04-18 09:32:21 167.5 cm WEIGHT 2021-04-18 09:32:21 76.4 kg Systolic blood 2023-03-17 14:57:00 153 mm[Hg] Method [facility] pressure Diastolic blood 2023-03-17 14:57:00 73 mm[Hg] Metho [facility] [place] pressure Heart rate 2023-03-17 14:57:00 64 /min [facility] [place] Body height 2023-03-17 14:57:00 168.9 cm [facility] [place] Body weight 2023-03-17 14:57:00 75.297 kg [facility] [place] BMI 2023-03-17 14:57:00 26.39 kg/m2 [facility] [place] Systolic blood 2023-03-04 18:21:15 148 mm[Hg] Univer sity of pressure Levy Unger [facility] Diastolic blood 2023-03-04 18:21:15 64 mm[Hg] Unive rsity of pressure [facility] Heart rate 2023-03-04 18:21:15 57 /min [facility] [place] [facility] Respiratory rate 2023-03-04 18:21:15 18 /min Univ ersity of Levy [facility] Oxygen saturation in 2023-03-04 18:21:15 99 /min University of Arterial blood by Levy Andrade nderson Pulse oximetry [facility] Systolic blood 2022-11-12 20:04:00 125 mm[Hg] Univer sity of pressure Levy [facility] Diastolic blood 2022-11-12 20:04:00 72 mm[Hg] Unive rsity of pressure Levy [facility] Heart rate 2022-11-12 20:04:00 65 /min Universi ty of Levy [facility] Respiratory rate 2022-11-12 20:04:00 16 /min Univ ersbrisa Levy [facility] Oxygen saturation in 2022-11-12 20:04:00 96 /min University of Arterial blood by Levy Andrade nderson Pulse oximetry [facility] Body temperature 2022-11-12 20:04:00 36.61 Yulia [facility] [place] [facility] Body height 2022-11-12 20:04:00 167.3 cm Universi ty of Levy [facility] Body weight 2022-11-12 20:04:00 74.1 kg Universi ty [facility] MD [facility] BMI 2022-11-12 20:04:00 26.47 kg/m2 [facility] [place] [facility] Body height 2022-08-19 15:40:00 168.9 cm [facility] [place] Body weight 2022-08-19 15:40:00 77.111 kg [facility] [place] BMI 2022-08-19 15:40:00 27.03 kg/m2 [facility] [place] Systolic blood 2022-06-30 19:30:00 159 mm[Hg] Method [facility] pressure Diastolic blood 2022-06-30 19:30:00 66 mm[Hg] Metho [facility] [place] pressure Heart rate 2022-06-30 19:30:00 64 /min [facility] [place] Body temperature 2022-06-30 19:30:00 37.44 Yulia [facility] Respiratory rate 2022-06-30 19:30:00 14 /min [facility] Oxygen saturation in 2022-06-30 19:30:00 98 /min [facility] Arterial blood by Pulse oximetry Systolic blood 2022-01-08 21:11:32 124 mm[Hg] Univer sity of pressure Levy [facility] Diastolic blood 2022-01-08 21:11:32 82 mm[Hg] Unive rsity of pressure Levy [facility] Heart rate 2022-01-08 21:11:32 72 /min [facility] [place] MD [facility] Body temperature 2022-01-08 21:11:32 36.78 Yulia Univ ersity of Levy [facility] Respiratory rate 2022-01-08 21:11:32 18 /min Univ ersity of Levy [facility] Body weight 2022-01-08 21:11:32 78.5 kg Universi ty of [facility] BMI 2022-01-08 21:11:32 28.66 kg/m2 [facility] [place] [facility] Oxygen saturation in 2022-01-08 21:11:32 95 /min University of Arterial blood by Levy sanchez Pulse oximetry [facility] Procedures Procedure Date / Time Performing Clinician Source Performed MAMMO DIGITAL DIAGNOSTIC 2023-03-04 19:56:47 Clay Ortiz [facility] BILATERAL [facility] US HEAD NECK SOFT TISSUE 2023-03-04 18:50:00 Beto Bernard [facility] [place] [facility] US THYROID FINE NEEDLE 2023-03-04 18:50:00 Beto Bernard [facility] [place] ASPIRATION [facility] CYTOLOGY IMAGE-GUIDED FNA 2023-03-04 17:27:00 Beto Bernard [facility] [place] INTERPRETATION [facility] CYTOLOGY IMAGE-GUIDED FNA 2023-03-04 17:26:00 Beto Bernard [facility] [place] INTERPRETATION [facility] FREE THYROXINE 2023-03-04 14:45:00 Jayne Raeann [place] [facility] [place] [facility] THYROID STIMULATING 2023-03-04 14:45:00 Raeann Godoy [facility] HORMONE MD [facility] DIAGNOSTIC FLEXIBLE 2022-12-14 13:20:00 Lam Trimble [facility] COLONOSCOPY PROXIMAL TO MD Boss [facility] SPLENIC FLEXURE Center ADJACENT TISSUE TRANSFER, 2022-06-30 17:50:00 [facility] INVOLVING EYELIDS, NOSE, [place] EARS, OR LIPS COVID-19 QUALITATIVE 2022-06-25 16:01:00 [facility] RT-PCR [place] CBC WITH PLATELET AND 2022-06-17 19:54:00 [facility] [place] DIFFERENTIAL Milena BASIC METABOLIC PANEL 2022-06-17 19:54:00 [facility] [place] Milena HEMOGLOBIN A1C 2022-06-17 19:54:00 [place] ESTIMATED GFR 2022-06-17 19:54:00 [place], [facility] Milena ECG PRE/POST OP 2022-06-17 19:32:39 [place], [facility]spital Milena US BREAST COMPLETE 2022-01-07 18:27:29 Beto Bernard [facility] BILATERAL [facility] US CHEST 2022-01-07 18:27:[address] [facility] o f [facility] MAMMO DIGITAL DIAGNOSTIC 2022-01-07 16:13:16 Beto Bernard [facility] BILATERAL [facility] Plan of Care Planned Activity Planned Date Details Comments Source Future Scheduled 2023-04-27 [facility] 16:37:53 malignant neoplasm of colon (procedure) [code = 050567630] Future Scheduled 2023-04-27 [facility] 16:37:53 malignant neoplasm of colon (procedure) [code = 854390991] Future Scheduled 2023-04-27 [facility] Test 16:37:53 malignant neoplasm of colon (procedure) [code = 949242888] Future Scheduled 2023-04-27 Hepatitis C screening [facility] Test 16:37:53 (procedure) [code = 192654359] Future Scheduled 2023-04-27 Screening for [facility] Test 16:37:53 malignant neoplasm of colon (procedure) [code = 054274305] Future Scheduled 2023-04-27 Screening for [facility] Test 16:37:53 malignant neoplasm of colon (procedure) [code = 042310971] Future Scheduled 2023-04-27 SHINGLES VACCINES (1 Met [facility] Test 16:37:53 of 2) [code = SHINGLES VACCINES (1 of 2)] Future Scheduled 2023-04-27 65+ [facility]AL [facility] Test 16:37:53 VACCINE (1 - PCV) [code = 65+ PNEUMOCOCCAL VACCINE (1 - PCV)] Future Scheduled 2023-04-27 COVID-19 VACCINE (3 - [facility] Test 16:37:53 Moderna series) [code = COVID-19 VACCINE (3 - Moderna series)] Future Scheduled 2023-04-27 INFLUENZA VACCINE [facility] Test 16:37:53 [code = INFLUENZA VACCINE] Future Scheduled 2023-04-27 BREAST CANCER [facility] Test 16:37:53 SCREENING [code = BREAST CANCER SCREENING] Future Scheduled 2023-04-09 COVID-19 Vaccination [facility] [place] Test 10:51:37 (3 - Moderna series) MD Díaz rson Cancer [code = COVID-19 Center Vaccination (3 - Moderna series)] Future Scheduled 2023-03-17 Hepatitis C screening [facility] Test 10:32:45 (procedure) [code = 101651930] Future Scheduled 2023-03-17 COLONOSCOPY SCREENING [facility] Test 10:32:45 [code = COLONOSCOPY SCREENING] Future Scheduled 2023-03-17 SHINGLES VACCINES (1 Met [facility] Test 10:32:45 of 2) [code = SHINGLES VACCINES (1 of 2)] Future Scheduled 2023-03-17 65+ [facility]CCAL [facility] Test 10:32:45 VACCINE (1 - PCV) [code = 65+ PNEUMOCOCCAL VACCINE (1 - PCV)] Future Scheduled 2023-03-17 COVID-19 VACCINE (3 - [facility] Test 10:32:45 Booster for Moderna series) [code = COVID-19 VACCINE (3 - Booster for Moderna series)] Future Scheduled 2023-03-17 INFLUENZA VACCINE [facility] Test 10:32:45 [code = INFLUENZA VACCINE] Future Scheduled 2023-03-17 BREAST CANCER [facility] Test 10:32:45 SCREENING [code = BREAST CANCER SCREENING] Future Scheduled 2023-03-17 COVID-19 Vaccination [facility] [place] Test 09:59:15 (3 - Booster for MD Paul Cancer Moderna series) [code Center = COVID-19 Vaccination (3 - Booster for Moderna series)] Future Scheduled 2022-11-22 Hepatitis C screening [facility] Test 14:38:37 (procedure) [code = 490949904] Future Scheduled 2022-11-22 BREAST CANCER [facility] Test 14:38:37 SCREENING [code = BREAST CANCER SCREENING] Future Scheduled 2022-11-22 COLONOSCOPY SCREENING [facility] Test 14:38:37 [code = COLONOSCOPY SCREENING] Future Scheduled 2022-11-22 SHINGLES VACCINES (1 Met [facility] Test 14:38:37 of 2) [code = SHINGLES VACCINES (1 of 2)] Future Scheduled 2022-11-22 65+ [facility]CCAL [facility] Test 14:38:37 VACCINE (1 - PCV) [code = 65+ PNEUMOCOCCAL VACCINE (1 - PCV)] Future Scheduled 2022-11-22 COVID-19 VACCINE (3 - [facility] Test 14:38:37 Booster for Moderna series) [code = COVID-19 VACCINE (3 - Booster for Moderna series)] Future Scheduled 2022-11-22 INFLUENZA VACCINE [facility] Test 14:38:37 [code = INFLUENZA VACCINE] Future Scheduled 2022-11-16 COVID-19 Vaccination [facility] [place] Test 16:38:43 (3 - Booster for MD Paul Cancer Moderna series) [code Center = COVID-19 Vaccination (3 - Booster for Moderna series)] Future Scheduled 2022-11-16 COVID-19 Vaccination [facility] [place] Test 16:38:43 (3 - Booster for MD Paul Cancer Moderna series) [code Center = COVID-19 Vaccination (3 - Booster for Moderna series)] Future Scheduled 2022-11-12 Hepatitis C screening [facility] Test 15:24:11 (procedure) [code = 304002420] Future Scheduled 2022-11-12 BREAST CANCER [facility] Test 15:24:11 SCREENING [code = BREAST CANCER SCREENING] Future Scheduled 2022-11-12 COLONOSCOPY SCREENING [facility] Test 15:24:11 [code = COLONOSCOPY SCREENING] Future Scheduled 2022-11-12 SHINGLES VACCINES (1 Met [facility] Test 15:24:11 of 2) [code = SHINGLES VACCINES (1 of 2)] Future Scheduled 2022-11-12 65+ [facility]OCCAL [facility] Test 15:24:11 VACCINE (1 - PCV) [code = 65+ PNEUMOCOCCAL VACCINE (1 - PCV)] Future Scheduled 2022-11-12 COVID-19 VACCINE (3 - Me [facility] Test 15:24:11 Booster for Moderna series) [code = COVID-19 VACCINE (3 - Booster for Moderna series)] Future Scheduled 2022-11-12 INFLUENZA VACCINE [facility] Test 15:24:11 [code = INFLUENZA VACCINE] Future Scheduled 2022-11-12 COVID-19 Vaccination Uni [facility] Test 13:53:48 (3 - Booster for MD Paul Cancer Moderna series) [code Center = COVID-19 Vaccination (3 - Booster for Moderna series)] Future Scheduled 2022-11-11 Hepatitis C screening [facility] Test 14:20:37 (procedure) [code = 010439307] Future Scheduled 2022-11-11 BREAST CANCER [facility] Test 14:20:37 SCREENING [code = BREAST CANCER SCREENING] Future Scheduled 2022-11-11 COLONOSCOPY SCREENING [facility] Test 14:20:37 [code = COLONOSCOPY SCREENING] Future Scheduled 2022-11-11 SHINGLES VACCINES (1 Met [facility] Test 14:20:37 of 2) [code = SHINGLES VACCINES (1 of 2)] Future Scheduled 2022-11-11 65+ [facility]AL [facility] Test 14:20:37 VACCINE (1 - PCV) [code = 65+ PNEUMOCOCCAL VACCINE (1 - PCV)] Future Scheduled 2022-11-11 COVID-19 VACCINE (3 - [facility] Test 14:20:37 Booster for Moderna series) [code = COVID-19 VACCINE (3 - Booster for Moderna series)] Future Scheduled 2022-11-11 INFLUENZA VACCINE [facility] Test 14:20:37 [code = INFLUENZA VACCINE] Future Scheduled 2022-11-11 COVID-19 Vaccination Uni versity [facility] Test 09:53:10 (3 - Booster for MD Paul Cancer Moderna series) [code Center = COVID-19 Vaccination (3 - Booster for Moderna series)] Future Scheduled 2022-09-03 HEPATITIS B VACCINES Met [facility] Test 11:04:24 (1 of 3 - 3-dose series) [code = HEPATITIS B VACCINES (1 of 3 - 3-dose series)] Future Scheduled 2022-09-03 Hepatitis C screening [facility] Test 11:04:24 (procedure) [code = 854866420] Future Scheduled 2022-09-03 BREAST CANCER [facility] Test 11:04:24 SCREENING [code = BREAST CANCER SCREENING] Future Scheduled 2022-09-03 COLONOSCOPY SCREENING [facility] Test 11:04:24 [code = COLONOSCOPY SCREENING] Future Scheduled 2022-09-03 SHINGLES VACCINES (1 Met [facility] Test 11:04:24 of 2) [code = SHINGLES VACCINES (1 of 2)] Future Scheduled 2022-09-03 65+ [facility]OCOCCAL [facility] Test 11:04:24 VACCINE (1 - PCV) [code = 65+ PNEUMOCOCCAL VACCINE (1 - PCV)] Future Scheduled 2022-09-03 COVID-19 VACCINE (3 - [facility] Test 11:04:24 Booster for Moderna series) [code = COVID-19 VACCINE (3 - Booster for Moderna series)] Future Scheduled 2022-09-03 INFLUENZA VACCINE [facility] Test 11:04:24 [code = INFLUENZA VACCINE] Future Scheduled 2022-08-10 COVID-19 Vaccination Uni versity [facility] Test 10:07:45 (3 - Booster for MD Paul Cancer Moderna series) [code Center = COVID-19 Vaccination (3 - Booster for Moderna series)] Encounters Start End Encounter Admission Attending Care Care Encounter Source Date/Time Date/Time Type Type Clinicians Facility Department ID 2023-01-25 Outpatient TC GAVIRIA MDA [id number] 14:42:02 PROVIDER Cornel kulkarni 2022-11-12 Outpatient TC TRIMBLE Wendy/Hep/Nu [id number] 16:26:58 LAM kulkarni 2021-06-18 Outpatient TC MONTEZ [id number] 11:52:08 Andchristophero n 2021-04-24 Outpatient SYSTEM, [facility] [id number] 06:44:54 PROVIDER Cornel kulkarni 2023-03-22 2023-03-22 Outpatient AMI Hammer [facility] [id number] [facility] 13:37:00 13:37:00 Mufaelif [facility] [place] [facility] 2023-03-22 2023-03-22 Outpatient FOG_Gombera AOSM AOSM [id number] Elise 00:00:00 00:00:00 _Diego_ [id number] [facility] 2023-03-22 2023-03-22 Abygail B AOSM [place] - Ortho [id number] Elise 00:00:00 00:00:00 Pratima Eugene - [place]: 7401 FOG_Ofc dic [facility], [place] [address] , Ph. [phone] 2023-03-17 2023-03-17 Office [facility], 1.2.840.1 [id number] Methodi 09:45:00 10:34:19 Visit Salty 83232.1.[address] [place] 3.430.2.7 Hospit a .3.120923 l .8 2023-03-17 2023-03-17 Office [facility], 1.2.840.1 [id number] [id number] Methodi 09:45:00 10:34:19 Visit Salty 00925.1.[address] [place] 3.430.2.7 Hospit a .3.876962 l .8 2023-03-17 2023-03-17 Travel 1.2.840.1 1.2.513.397 2204 [id number] Methodi 00:00:00 00:00:[address] 3.430.2.7 0.2.7.3.698 Ho spita .3.253926 084.8 l .8 2023-03-17 2023-03-17 Travel 1.2.840.1 1.2.027.798 1235 [id number] Methodi 00:00:00 00:00:[address] 3.430.2.7 0.2.7.3.698 Ho spita .3.363275 084.8 l .8 2023-03-15 2023-03-15 Telephone Tee, 1.2.840.1 [id number] 21 [id number] Methodi 00:00:00 00:00:[address] [place] 3.430.2.7 Hospit a .3.423314 l .8 2023-03-15 2023-03-15 Telephone Tee, 1.2.840.1 [id number] Methodi 00:00:00 00:00:[address] [place] 3.430.2.7 Hospit a .3.105065 l .8 2023-03-04 2023-03-04 [facility], 1.2.840.1 [id number] Univers 13:53:07 23:59:00 Encounter Clay aZbala 74337.1.1 it y of 3.412.2.7 [place] .3.143135 MD Metz [facility] 2023-03-04 2023-03-04 [facility] 1.2.840.1 [id number] Univers 13:53:07 23:59:00 Encounter Clay Zabala 42114.1.1 it y of 3.412.2.7 [place] .3.863175 MD Metz [facility] 2023-03-04 2023-03-04 [facility] 1.2.840.1 [id number] Univers 09:37:24 13:52:00 Encounter Raeann 35115.1.1 it y of 3.412.2.7 [place] .3.433928 MD Metz [facility] 2023-03-04 2023-03-[address] [facility] 1.2.840.1 [id number] Univers 09:37:24 13:52:00 Encounter Raeann 53092.1.1 it y of 3.412.2.7 [place] .3.437405 MD Metz [facility] 2023-03-04 2023-03-04 Ancillary EL Bernard, 1.2.840.1 [id number] Univers 11:30:00 13:30:00 Procedure Beto 03520.1.1 it y of 3.412.2.7 [place] .3.245115 MD Metz [facility] 2023-03-04 2023-03-04 Ancillary Bernard, 1.2.840.1 [id number] Univers 11:30:00 13:30:00 Procedure Beto 08147.1.1 it y of 3.412.2.7 [place] .3.811151 MD Metz [facility] 2023-03-04 2023-03-04 Travel 1.2.840.1 1.2.968.194 [id number] Univers 00:00:00 00:00:00 73900.1.1 350.1.13.41 ity of 3.412.2.7 [place].7.3.698 [place] .3.038068 084.8 MD Metz [facility] 2023-03-04 2023-03-04 Travel 1.2.840.1 1.2.076.694 0543 [id number] Univers 00:00:00 00:00:00 44815.1.1 350.1.13.41 ity of 3.412.2.7 2.2.7.3.698 [place] .3.964609 084.8 MD Metz [facility] 2023-02-22 2023-02-22 Telephone Weber, 1.2.840.1 [id number] Univers 00:00:00 00:00:00 Ni Y 85787.1.1 ity of 3.412.2.7 [place] .3.274798 MD Metz [facility] 2023-02-22 2023-02-22 Telephone Weber, 1.2.840.1 [id number] Univers 00:00:00 00:00:00 Ni Y 69206.1.1 ity of 3.412.2.7 [place] .3.217294 MD Metz [facility] 2023-01-29 2023-01-29 Orders Jayne 1.2.840.1 [id number] Univers 00:00:00 00:00:00 Only Raeann 13985.1.1 ity of 3.412.2.7 [place] .3.585165 MD Garcia8 [facility] 2023-01-29 2023-01-29 Orders Jayne 1.2.840.1 [id number] Univers 00:00:00 00:00:00 Only Raeann 66217.1.1 ity of 3.412.2.7 [place] .3.655472 MD Metz [facility] 2023-01-27 2023-01-27 Orders Joana, 1.2.840.1 [id number] Univers 00:00:00 00:00:00 Only Beto 38035.1.1 ity of 3.412.2.7 [place] .3.208835 MD Garcia8 [facility] 2023-01-27 2023-01-27 Orders Bernard, 1.2.840.1 [id number] Univers 00:00:00 00:00:00 Only Beto 34064.1.1 ity of 3.412.2.7 [place] .3.316868 MD Garcia8 [facility] 2023-01-25 2023-01-25 Orders Bernard, 1.2.840.1 [id number] Univers 00:00:00 00:00:00 Only Beto 54572.1.1 ity of 3.412.2.7 [place] .3.046048 MD Metz [facility] 2023-01-25 2023-01-25 Orders Bernard, 1.2.840.1 [id number] Univers 00:00:00 00:00:00 Only Beto 33389.1.1 ity of 3.412.2.7 [place] .3Radha587421 MD .8 [facility] 2023-01-18 2023-01-18 Orders Bernard, 1.2.840.1 [id number] Univers 00:00:00 00:00:00 Only Beto 46452.1.1 ity of 3.412.2.7 [place] .3Radha997839 .8 [facility] 2023-01-18 2023-01-18 Orders Bernard, 1.2.840.1 [id number] Univers 00:00:00 00:00:00 Only Beto 77727.1.1 ity of 3.412.2.7 [place] .3Radha869973 MD Garcia8 [facility] 2022-11-27 2022-11-27 Outpatient FOG_Gombera AOSM AOSM 586 3818-20 Elise 00:00:00 00:00:00 _Ubaldo 031087 [facility] 2022-11-27 2022-11-27 Outpatient FOG_Gombera AOSM AOSM 586 3818-20 Elise 00:00:00 00:00:00 _Ubaldo 197816 Orth [facility] 2022-11-12 2022-11-12 Office DARIUS Trimble, 1.2.840.1 [id number] Univers 13:00:00 14:55:36 Visit Lam 18486.1.1 ity of 3.412.2.7 [place] .3Radha895550 MD .8 [facility] 2022-11-12 2022-11-12 Office Nat, 1.2.840.1 [id number] 0738 Univers 13:00:00 14:55:36 Visit Lam 05544.1.1 ity of 3.412.2.7 [place] .3Radha705132Uday Garcia8 [facility] 2022-11-12 2022-11-12 NPR DARIUS Thao, 1.2.840.1 [id number] 9977 Univers 12:30:00 13:24:23 [place] 96585.1.1 it y of 3.412.2.7 [place] .3.594029 MD Metz [facility] 2022-11-12 2022-11-12 NPR Ross, 1.2.840.1 [id number] 2760 Univers 12:30:00 13:24:23 Sami Apodaca 19158.1.1 it y of 3.412.2.7 [place] .3.988314 MD Metz [facility] 2022-11-12 2022-11-12 Prep for Paul, 1.2.840.1 [id number] Univers 00:00:00 00:00:00 Surgery Mertie 79837.1.1 ity of 3.412.2.7 [place] .3.037143 MD Metz [facility] 2022-11-12 2022-11-12 Travel 1.2.840.1 1.2.157.251 [id number] Univers 00:00:00 00:00:00 71256.1.1 350.1.13.41 ity of 3.412.2.7 2.2.7.3.698 [place] .3.236011 084.8 MD Metz [facility] 2022-11-12 2022-11-12 Prep for Paul, 1.2.840.1 [id number] Univers 00:00:00 00:00:00 Surgery Mertie 43764.1.1 ity of 3.412.2.7 [place] .3.884218 MD Metz [facility] 2022-11-12 2022-11-12 Travel 1.2.840.1 1.2.149.039 6115 [id number] Univers 00:00:00 00:00:00 19310.1.1 350.1.13.41 ity of 3.412.2.7 2.2.7.3.698 [place] .3.859296 084.8 MD Metz [facility] 2022-11-10 2022-11-10 Travel 1.2.840.1 1.2.200.496 [id number] [id number] Univers 00:00:00 00:00:00 76988.1.1 350.1.13.41 ity of 3.412.2.7 2.2.7.3.698 [place] .3.125106 084.8 .8 [facility] 2022-11-10 2022-11-10 Travel 1.2.840.1 1.2.353.843 8635 [id number] Univers 00:00:00 00:00:00 00735.1.1 350.1.13.41 ity of 3.412.2.7 2.2.7.3.698 [place] .3.513631 084.8 .8 [facility] 2022-09-03 2022-09-03 Outpatient DARIUS MeadeValorieAMI hernandez [facility] [id number] [facility] 11:03:00 11:03:00 A[facility]gail [facility] 2022-09-03 2022-09-03 Outpatient FOG_Gombera AOSM AOSM 586 3818-20 Elise 00:00:00 00:00:00 _Ubaldo [id number] [facility] 2022-09-03 2022-09-03 Abygail B AOSM [place] - [facility] Elise 00:00:00 00:00:00 Pratima Eugene PA: 7401 [facility]OG[facility] dic [facility], [place] [address] , Ph. [phone] 2022-09-02 2022-09-02 Outpatient FOG_Gombera AOSM AOSM 586 3818-20 Elise 00:00:00 00:00:00 _Ubaldo [id number] [facility] 2022-08-29 2022-08-29 Outpatient FOG_Gombera AOSM AOSM 586 3818-20 Elise 00:00:00 00:00:00 _Ubaldo [id number] [facility] 2022-08-19 2022-08-19 Ivania Wayne2.840.1 [id number] [id number] [facility]i 10:15:00 11:08:23 Visit Salty [address]174.1.[address] 3.430.2.7 Hospit a .3.049383 l .8 2022-08-19 2022-08-19 Travel 1.2.840.1 1.2.396.960 [id number] Methodi 00:00:00 00:00:00 73539.1.1 350.1.13.[address] 3.430.2.7 0.2.7.3.698 Ho spita .3.714297 084.8 l .8 2022-08-19 2022-08-19 Travel 1.2.840.1 1.2.089.545 3411 141384 Methodi 00:00:00 00:00:[address] 3.430.2.7 0.2.7.3.698 Ho spita .3.199983 084.8 l .8 2022-07-15 2022-07-15 Telephone [facility], 1.2.840.1 [id number] 21 [id number] Methodi 00:00:00 00:00:[address] [place] 3.430.2.7 Hospit a .3.899354 l .8 2022-07-15 2022-07-15 Telephone [facility], 1.2.840.1 [id number] 21 [id number] Methodi 00:00:00 00:00:[address] [place] 3.430.2.7 Hospit a .3.646226 l .8 2022-07-10 2022-07-10 Clinical Frankie 1.2.840.1 [id number] 2 [id number] Methodi 10:30:00 10:38:13 Donna Nix 75771.1.[address] 3.430.2.7 Hospit a .3.208067 l .8 2022-07-10 2022-07-10 Clinical Frankie 1.2.840.1 [id number] 2 [id number] Methodi 10:30:00 10:38:13 Support , Donna 08236.1.[address] 3.430.2.7 Hospit a .3.992852 l .8 2022-07-10 2022-07-10 Office [facility], 1.2.840.1 [id number] 2099450 Methodi 09:45:00 10:28:42 Visit Salty 53362.1.[address] [place] 3.430.2.7 Hospit a .3.697011 l .8 2022-07-10 2022-07-10 Office [facility], 1.2.840.1 [id number] 2099 265735 Methodi 09:45:00 10:28:42 Visit Salty 44061.1.[address] [place] 3.430.2.7 Hospit a .3.567817 l .8 2022-07-10 2022-07-10 Travel 1.2.840.1 1.2.478.552 3622 563116 Methodi 00:00:00 00:00:[address] 3.430.2.7 0.2.7.3.698 Ho spita .3.580154 084.8 l .8 2022-07-10 2022-07-10 Travel 1.2.840.1 1.2.876.429 8915 649963 Methodi 00:00:00 00:00:[address] 3.430.2.7 0.2.7.3.698 Ho spita .3.718213 084.8 l .8 2022-07-08 2022-07-08 [facility], 1.2.840.1 [id number] 2099 664948 Methodi 11:00:00 11:23:48 Visit Salty 66129.1.[address] [place] 3.430.2.7 Hospit a .3.027488 l .8 2022-07-08 2022-07-08 [facility], 1.2.840.1 [id number] 2099 108083 Methodi 11:00:00 11:23:48 Visit Salty 41817.1.[address] [place] 3.430.2.7 Hospit a .3.290077 l .8 2022-07-08 2022-07-08 Travel 1.2.840.1 1.2.548.455 3231 160867 Methodi 00:00:00 00:00:[address] 3.430.2.7 0.2.7.3.698 Ho spita .3.482926 084.8 l .8 2022-07-08 2022-07-08 Travel 1.2.840.1 1.2.332.938 5890 679571 Methodi 00:00:00 00:00:[address] 3.430.2.7 0.2.7.3.698 Ho spita .3.801130 084.8 l .8 2022-06-30 2022-06-30 [facility] 1.2.840.1 [id number] 615 5868029 Methodi 09:15:00 15:54:00 Encounter Salty 41662.1.[address] [place] 3.430.2.7 Hospit a .3.923015 l .8 2022-06-30 2022-06-30 [facility] 1.2.840.1 [id number] 668 1756287 Methodi 09:15:00 15:54:00 Encounter Salty 99612.1.[address] [place] 3.430.2.7 Hospit a .3.565358 l .8 2022-06-30 2022-06-30 [facility] 1.2.840.1 [id number] 2099 531774 Methodi 12:00:00 15:00:[address] [place] 3.430.2.7 Hospit a .3.150980 l .8 2022-06-30 2022-06-30 [facility] 1.2.840.1 [id number] 2099 769447 Methodi 12:00:00 15:00:[address] [place] 3.430.2.7 Hospit a .3.261303 l .8 2022-06-30 2022-06-30 Anesthesia Lupe Dunne e 1.2.840.1 867567315 [id number] Methodi 12:50:00 14:39:00 Event Georgia Marcos 11290.1.[address] 3.430.2.7 Hospit a .3.140338 l .8 2022-06-30 2022-06-30 Anesthesia Lupe Dunne 1.2.840.1 803550000 [id number] Methodi 12:50:00 14:39:00 Event Georgia Marcos 75373.1.[address] 3.430.2.7 Hospit a .3.385076 l .8 2022-06-30 2022-06-30 Travel 1.2.840.1 1.2.478.708 5676 641069 Methodi 00:00:00 00:00:[address] 3.430.2.7 0.2.7.3.698 Ho spita .3.904628 084.8 l .8 2022-06-30 2022-06-30 Travel 1.2.840.1 1.2.705.894 9923 300838 Methodi 00:00:00 00:00:[address] 3.430.2.7 0.2.7.3.698 Ho spita .3.402373 084.8 l .8 2022-06-29 2022-06-29 Bettina [place] 1.2.840.1 398500958 141207 7153 Methodi 00:00:00 00:00:00 Only Nichelle 98786.1.[address] 3.430.2.7 Hospit a .3.666231 l .8 2022-06-29 2022-06-29 Bettina [place], 1.2.840.1 [id number] 291498 1318 Methodi 00:00:00 00:00:00 Only Nichelle 08715.1.[address] 3.430.2.7 Hospit a .3.409563 l .8 2022-06-25 2022-06-25 Outpatient [facility] 18431 28808 [place] 00:00:00 00:00:00 SALTY Kennedy[address] i [address] 2022-06-24 2022-06-24 Telemedici Tee, 1.2.840.1 330341010 2 [id number] Methodi 14:50:00 16:03:20 ne Salty 37758.1.[address] [place] 3.430.2.7 Hospit a .3.732210 l .8 2022-06-24 2022-06-24 Travel 1.2.840.1 1.2.548.983 9399 985437 Methodi 00:00:00 00:00:[address] 3.430.2.7 0.2.7.3.698 Ho spita .3.513748 084.8 l .8 2022-06-24 2022-06-24 Travel 1.2.840.1 1.2.677.393 5621 847936 Methodi 00:00:00 00:00:[address] 3.430.2.7 0.2.7.3.698 Ho spita .3.345372 084.8 l .8 2022-06-21 2022-06-21 Travel 1.2.840.1 1.2.809.752 2180 181445 Methodi 00:00:00 00:00:[address] 3.430.2.7 0.2.7.3.698 Ho spita .3.276080 084.8 l .8 2022-06-21 2022-06-21 Travel 1.2.840.1 1.2.994.675 0796 131241 Methodi 00:00:00 00:00:[address] 3.430.2.7 0.2.7.3.698 Ho spita .3.559592 084.8 l .8 2022-06-19 2022-06-19 Travel 1.2.840.1 1.2.477.930 8421 627457 Methodi 00:00:00 00:00:[address] 3.430.2.7 0.2.7.3.698 Ho spita .3.901535 084.8 l .8 2022-06-19 2022-06-19 Orders Felix, 1.2.840.1 258146813 830837 7947 Methodi 00:00:00 00:00:00 Only Nichelle 61754.1.[address] 3.430.2.7 Hospit a .3.872588 l .8 2022-06-19 2022-06-19 Travel 1.2.840.1 1.2.131.748 1706 444112 Methodi 00:00:00 00:00:[address] 3.430.2.7 0.2.7.3.698 Ho spita .3.428710 084.8 l .8 2022-06-19 2022-06-19 Orders Felix, 1.2.840.1 742579481 608980 0979 Methodi 00:00:00 00:00:00 Only Nichelle 94316.1.[address] 3.430.2.7 Hospit a .3.512799 l .8 2022-06-17 2022-06-17 Pre-Admiss Tee, 1.2.840.1 604270631 2 [id number] Methodi 13:20:00 14:20:00 ion Salty 03643.1.[address] Testing [place] 3.430.2.7 Hospit a .3.413322 l .8 2022-06-17 2022-06-17 Pre-Admiss Tee, 1.2.840.1 387983323 2 086009047 Methodi 13:20:00 14:20:00 ion Salty 40301.1.[address] Testing [place] 3.430.2.7 Hospit a .3.069915 l .8 2022-06-17 2022-06-17 Travel 1.2.840.1 1.2.932.215 6522 304700 Methodi 00:00:00 00:00:[address] 3.430.2.7 0.2.7.3.698 Ho spita .3.270886 084.8 l .8 2022-06-17 2022-06-17 Travel 1.2.840.1 1.2.448.556 3983 735473 Methodi 00:00:00 00:00:[address] 3.430.2.7 0.2.7.3.698 Ho spita .3.208759 084.8 l .8 2022-05-18 2022-05-18 Office Tee, 1.2.840.1 [id number] 2099 408270 Methodi 13:30:00 14:47:05 Visit Salty 91801.1.[address] [place] 3.430.2.7 Hospit a .3.447382 l .8 2022-05-18 2022-05-18 Travel 1.2.840.1 1.2.158.958 3089 703826 Methodi 00:00:00 00:00:[address] 3.430.2.7 0.2.7.3.698 Ho spita .3.134228 084.8 l .8 2022-05-18 2022-05-18 Travel 1.2.840.1 1.2.766.723 9586 408345 Methodi 00:00:00 00:00:[address] 3.430.2.7 0.2.7.3.698 Ho spita .3.787073 084.8 l .8 2022-01-12 2022-01-12 [facility], 1.2.840.1 [id number] 969623 6642 [facility] 00:00:00 00:00:00 Only Beto 75878.1.1 ity of 3.412.2.7 [place] .3.975270 MD Metz [facility] 2022-01-08 2022-01-08 Office Hugo, 1.2.840.1 [id number] 061333 2184 Univers 15:15:00 15:30:00 Visit Sami Apodaca 23219.1.1 it y of 3.412.2.7 [place] .3.425362 MD Metz [facility] 2022-01-08 2022-01-08 Outpatient [id number] [facility] 13:34:00 13:34:00 Stephanie [facility] 2022-01-08 2022-01-08 Travel 1.2.840.1 1.2.752.714 0542 544501 Univers 00:00:00 00:00:00 65138.1.1 350.1.13.41 ity of 3.412.2.7 2.[place].7.3.698 [place] .3.668037 084.8 MD Metz [facility] 2022-01-07 2022-01-07 [facility] Bernard, 1.2.840.1 [id number] 55929 12259 Univers 10:30:00 23:59:00 Encounter Beto 53079.1.1 it y of 3.412.2.7 [place] .3.889790 MD Metz [facility] 2022-01-07 2022-01-07 [facility] Bernard, 1.2.840.1 [id number] 31293 98456 Univers 09:07:33 10:29:00 Encounter Beto 96837.1.1 it y of 3.412.2.7 [place] .3.494798 MD Metz [facility] 2022-01-07 2022-01-07 Travel 1.2.840.1 1.2.152.837 9056 027063 Univers 00:00:00 00:00:00 90658.1.1 350.1.13.41 ity of 3.412.2.7 [place].7.3.698 [place]3.421536 084.8 .8 [facility] 2021-12-23 2021-12-23 Outpatient AMI Hammer [id number] [facility] 09:52:00 09:52:00 Mufaddal [facility] [place] [facility] 2021-07-11 2021-07-11 Outpatient DARIUS SARAH, MDA MDA [id number] 13:00:00 23:59:00 SHYAM kulkarni 2021-07-11 2021-07-11 Outpatient DARIUS SARAH, MDA MDA [id number] 12:38:00 12:59:00 SHYAM kulkarni 2021-07-11 2021-07-11 Outpatient DARIUS CUELLAR, MDA MDA [id number] 12:14:36 12:26:58 UMU kulkarni 2021-07-01 2021-07-01 Outpatient DARIUS KOVACS, MDA MDA [id number] 14:45:12 15:14:35 TENISHA kulkarni 2021-06-23 2021-06-23 Outpatient DARIUS THAO, MDA MDA [id number] 15:09:13 23:59:00 SAMI kulkarni 2021-06-23 2021-06-23 Outpatient DARIUS THAO, MDA Surgical [id number] 13:04:00 22:40:00 SAMI kulkarni 2021-06-23 2021-06-23 Outpatient DARIUS GAMEZ, MDA MDA [id number] 13:10:00 15:08:00 BETO kulkarni 2021-06-19 2021-06-19 Outpatient DARIUS GAMEZ, MDA MDA [id number] 08:42:58 23:59:00 BETO kulkarni 2021-06-19 2021-06-19 Outpatient DARIUS THAO, MDA MDA [id number] MD 14:01:52 16:10:28 SAMI kulkarni 2021-06-19 2021-06-19 Outpatient DARIUS GAMEZ, MDA MDA [id number] 12:28:37 14:00:31 BETO crisostomo n 2021-06-19 2021-06-19 Outpatient DARIUS GAMEZ, MDA MDA [id number] MD 11:10:44 11:27:41 BETOLIAT Ritterers o n 2021-06-19 2021-06-19 Outpatient DARIUS GAMEZ, MDA MDA [id number] MD 08:38:52 08:41:00 BETO Unger o cayla 2021-06-12 2021-06-12 [facility] [id number] [facility] 09:48:00 09:48:00 Mufaddal 01 [facility] 2021-06-10 2021-06-10 Outpatient RADHA FOSTER MDA MDA [id number] MD 09:32:41 23:59:00 Cornel kulkarni 2021-06-03 2021-06-03 Outpatient DARIUS KOVACS, MDA MDA [id number] MD 13:41:37 16:53:32 TENISHA kulkarni 2021-05-23 2021-05-23 Outpatient DARIUS GAMEZ, MDA MDA [id number] MD 08:30:51 23:59:00 BETO Cornel o n 2021-05-23 2021-05-23 Outpatient DARIUS GAMEZ, MDA MDA [id number] MD 09:14:35 09:14:35 BETOLIAT Ritterers o n 2021-05-23 2021-05-23 Outpatient DARIUS GAMEZ, MDA MDA [id number] MD 08:53:58 09:11:01 BETO Unger o cayla 2021-05-15 2021-05-15 Outpatient DARIUS RIVAS, MDA MDA [id number] MD 12:20:23 14:19:51 AMADEO kulkarni 2021-04-30 2021-04-30 Outpatient DARIUS DIEGO, JADE MDA MDA [id number] 15:45:00 23:59:00 Cornel o cayla 2021-04-30 2021-04-30 Outpatient DARIUS DIEGO JADE MDA MDA [id number] MD 12:49:50 15:44:00 Cornel o cayla 2021-04-25 2021-04-25 Outpatient EL MDA MDA [id number] MD 10:20:09 10:20:09 Cornel o cyala 2021-04-25 2021-04-25 Outpatient DARIUS DIEGO JADE MDA MDA [id number] MD 08:55:35 08:55:35 Cornel o n 2021-04-22 2021-04-22 Outpatient JADE MCDUFFIE MDA MDA [id number] MD 08:50:20 08:50:20 Cornel o n 2021-04-18 2021-04-18 Outpatient DARIUS DIEGO JADE MDA MDA [id number] MD 12:23:47 23:59:00 Cornel o n 2021-04-18 2021-04-18 Outpatient DARIUS DIEGO JADE MDA MDA [id number] MD 14:05:25 14:56:44 Cornel o n 2021-04-18 2021-04-18 Outpatient DARIUS DIEGO JADE MDA MDA [id number] MD 11:28:55 12:22:00 Cornel o n 2021-04-18 2021-04-18 Outpatient JADE MCDUFFIE MDA MDA [id number] MD 09:17:14 10:16:18 Cornel o n 2021-04-18 2021-04-18 Outpatient DARIUS DIEGO JADE MDA MDA [id number] MD 09:34:33 09:34:33 Cornel o n 2021-04-18 2021-04-18 Outpatient JADE MCDUFFIE MDA MDA [id number] MD 09:34:23 09:34:23 Cornel o n 2021-04-18 2021-04-18 Outpatient DARIUS DIEGO JADE MDA MDA [id number] MD 09:32:14 09:32:14 Cornel o n 2021-04-18 2021-04-18 Outpatient DARIUS DIEGO JADE MDA MDA [id number] MD 09:31:58 09:31:58 Cornel o n 2021-04-18 2021-04-18 Outpatient DARIUS DIEGO JADE MDA MDA [id number] MD 09:31:50 09:31:50 Cornel o n 2021-04-18 2021-04-18 Outpatient DARIUS DIEGO JADE MDA MDA [id number] MD 09:31:43 09:31:43 Cornel o n 2021-04-18 2021-04-18 Outpatient DARIUS DIEGO JADE MDA MDA [id number] MD 09:31:39 09:31:39 Cornel o n 2021-04-18 2021-04-18 Outpatient JADE MCDUFFIE MDA, MDA [id number] 09:31:31 09:31:31 Cornel o cayla 2021-04-18 2021-04-18 Outpatient JADE MCDUFFIE MDA, MDA [id number] 09:31:11 09:31:11 Cornel o cayla 2021-04-18 2021-04-18 Outpatient JADE MCDUFFIE MDA, MDA [id number] 09:31:01 09:31:01 Cornel o cayla 2021-04-18 2021-04-18 Outpatient DARIUS MONTEZ MDA [id number] 09:03:00 09:03:10 Cornel o cayla 2021-04-15 2021-04-15 Outpatient JADE MCDUFFIE MDA, MDA [id number] 13:08:03 13:16:15 Cornel o cayla 2020-10-22 2020-10-22 Outpatient PAMELA Portillo JARRETT [id number] [facility] 12:00:00 12:00:00 Josemanuel 20 [facility] Results Test Description Test Time Test Comments Results Result [facility] e Comments - XR FLUORO NDL 2023-03-22 16:34:00 [facility] : 1950 Sex: F Patient Name: RICHARD NIETO Unit No: [id number] EXAMS: CPT CODE: [id number] XR FLUORO NDL 43952 FLUOROSCOPICALLY GUIDED INJECTION OF THE RIGHT SHOULDER WITH STEROID AND LIDOCAINE COMMENT: COMPARISON: No prior exams available. After informed consent was obtained a needle was placed in the glenohumeral joint with fluoroscopic guidance. Its position was confirmed by injecting Isovue 300 and obtaining an AP radiograph. 3 seconds of fluoroscopy time was utilized. Subsequently 2mL of Kenalog 40 mg per cc and 2mL of 1 percent lidocaine was injected. No immediate complications were encountered. at 1634 Reported and signed by: Mike Romero MD CC: Stephanie Forrest MD Technologist: Britney Marshall RT.(R) Transcribed D/ (1634) [email or web address] [facility] NAME: RICHARD NIETO [address] [facility] PHYS: RENOU. Stephanie Forrest Sagrario : 1950 AGE: 72 SEX: F [place] [address] LOC: Y.RAD PHONE #: [phone] EXAM DATE: 03/22/2023 STATUS: REG CLI FAX #: [phone] RAD #: D/C DT PAGE 1 Signed Report Patient Name: RICHARD NIETO Unit No: [id number] EXAMS: CPT CODE: [id number] XR FLUORO NDL 93729 (Continued) Orig Print D/T: S: 03/22/2023 (1637) [facility] NAME: RICHARD NIETO [address] [facility] PHYS: GOMMU.Jerald AdrianeStephanie Sagrario : 1950 AGE: 72 SEX: F [place] [address] LOC: Y.RAD PHONE #: [phone] EXAM DATE: 03/22/2023 STATUS: REG CLI FAX #: [phone] RAD #: D/C DT PAGE 2 Signed Report Cytology Image-Guided FNA Interpretation 2023-03-04 20:20:54 Test Item Value Reference Range Interpretation Comme nts Gross w5aehOSwWSYozVJcTRCmCboppvSjEYBuvCOjP8UeujmxTRksTW2oMC3wxCimpPHkpGSgHTSkLzQhn7ky v888eQTpi9jxDIHOadsmbOl8hRhiC31rh8D0ByibZ7ezENLmGSwyTUKtENhuiIEbEGi0BFSrpQDqrbFk GbLdRXAugFSrbVM8IOCqKB5awhyiQFaqNOplJTTzcjA9NLSbuFRxG2CcHPA Description iTV7yjelsGEY1SJvkEUEtPNR7ByKsLUDcr3Qeczw5RcE3LQvfDWUdQ0NjL6PnFKsaUBI9UYZsZSEvKAV nFV0JTqEdVWBhAlSbBAHiVUIPRQApCXK8ArUeNIQLRFExYAFaLCv4NgP8YXKgMKNPVMRpLqOjUJUvBxS bDCfgcNVjJDPdVRZaCIAbZQciqzO6f3vjRIHlqXAsVXV2ZEatiGVqNSEyYU (test code = JvPYblBcTSBoPqRzJlWsAjIHB1BsJ7ZWi2LVHREnBqWxBqBUTvVHq3JPVkXPz5NOl6DVhBJkVhIaLuTa X8PzR5SPK0LUUnFIpnwxxsPOt6RQKiJIyhyiAwWCdnPiukRZroA25lsESxCTrvIfFsPMIjaIRGq7AjGQ dtuHQtjfwtfzObRNEoZQOWkBEnoO6gmiPeaRDnQ1HkPQY7LNNenyohVFQqM [id number]) VPhBMopApCIhKdlJlXtQSCifGRVdUMvsxVObGemZVEsfURoAUKyEM3uGLWcuMOqyOTwsPfoRiumsDK2O WnwCloqxL6xbKPFVJAPGenNZfmprqQuEX6YAUEUVvSBCG33DgB2GqK4QTctzFtcBdoxyaGamFBnXpIwq W3sjGNqetHvuARabHBheCG7PFQyLVpwn7qpYXXcMNtoc8PsSCbJAQRETS3X ZA4tcNQ3N9gVXYYPO6qRuYV8l0ywrUOvd6q5PMikIRY5dYXxvhj0OODyZFwsz2iqQVEuAPzdv1XeRRjC QUKKEB7PDD6ocWF8G0uGNRBHGYkxkAhhKzkchkPekCSbUiPifR6tkAniyI7muCKgrPLukFmylcPgCPRw JCTaPmy3cTQ8DQEhXWivu3hzUUOmDCjco9TlDSbSANFNRJ2FHO7fiAA7BHy FCUTZZQqpDDF7ZDeuoEB3u0qdiDHlo5z6OOaoSZG6qJjpuONylolpbqUlSVKhVDXwkZ4mUlAKKFqaFJY rKYTZqQKfi9NuloktJLCypRAiJLHtzzN7LRNdDoG1APZyRFI3EPViWDAgcTcwCVJbp2OmBPcshRqzNSO oIoKlDJ5zSGZgBEAmHWEis2Pvx98tkrVsAt3sNKYvPYRysWSlEBSrWBK3OU I8BFqkftTpQXMuJPeacd70WKC5x4xonHCaMEzqVilrbHXfvhJ4SQpAUAEOOTnASqYnGL8eXIcTK1COPD mSVwdiBQi5JDtkiKP7d1yuhLVxi2r1BUtlGDC8xLurh8nhrTYbITzvCtxynLJjvqW1GOaMYQXQHTtLUu DzAR4dDLgIP1XXQjN4LwF5InJ1S7hyaDscVfvtcnNzaYZeMkPleH3hzEsne Z7iMsCzPXijIsPzKLC5DEZnTeUAeI9bhM38DTTqvUYaIGZ0ZM0poLivXPPeE2CjJ1CjvlL2QRPdkud7Y QJKZZSEZJgGCK6QGWHMOUMCHO0YDTfQSmKiQWH1MHnaKTM1QwYiLtE3CnR2Xh2iTFFPZYUENVbWFY5EB QAXJFAREC8NGqQpX0pABKYEUoMjSWEEBTUKNKZjIaSTEP0iNpk7iLokf8gL VVCQHQZBH85JZJDSKFTWF0ZSKHSCTTPVTLsEAJAGSv2QELMLDBEEWY0CZYlQWwMtXUqnhIViJXolBYB5 FCl1U1n5iSJcy6DepSW7WeW8RkD3HhT5ZGQdxFINDJACVHqASYLBWc0EQGDZGYMDKA6QPsBwS0AAWN0G Yz6ERJUJQWCBKY1QZSmXFzJdP7FDHW6KYc8TYGHIABQJAK3EUeNuOGDAR3N CEsKXX3keVCGIZTTCGGZgXjTEFJ3gMHJVGM4HXGOFMKNGF83ATFGPQ UDVH1HZOP6= Immediate Adequate cellularity Assessment (test code = 9837) Major Indeterminate A Classificati on (test code = 9839) Diagnosis c8qqbEKsMDTleXJxQCIlMcfkycQoLUYtwZMqD9QwgqpxIQliVT3qOD3jmPyiaHVkyWKmMOVoGfZtk1df j187qBUhs1zrRVLFnaebaRq6oFjsP65kd0F3BypdK9afZAXwLAugOZZaQPompMYmFKg9HRPwmRTizhOt ClRuKIUqwWLvqYL9ETGrXF7ddaltZXclGRfzXPObvqF6EUVluVBuQ0FuSTN (test code = zFV4mrygjGDU9AAzgXFTqMMZ9KdNaJQUbn0Cyggx2HyXitQr6p2okZCReZXGpnRkfe3abTYI1KASypEW bN8kckI2aKARtIS8xxjgeg5srDAbuHFhpHTIbzRK8zwP5JDTbsOKzO6TitB3nBLZjAMMtyvOeyMgjuC9 tGoGfILmpWhLnGCj3vf0gAPfgesgkxRWvbG3oDPZyu2UutD6wXAJoj6I2kA 34) JlUIOvpeFjmaRyGGohFQVqnEnnCJPlv316UTWdwusqOCDboKr6NzHjfJhoOwWzGIQcXSHGrqKefKUarR bbOZBvVKLfeXpuO8BdSXTdiCXsyS2tOQtyl4bfI0SxeMZbYPZwpRylqCirfK4ndPO8oaZihqFnn1xec0 esHAsyVfH5d3QhIzTyaXujDDOkvd0= Comment c4yyrFUvBQUctQZmXFAfImw3tEYwx6K3dxfuKR0goLnopAw0xBieYJIhznT5sXXnTJryx2qkPGM0u4gj kmsmMEFpVAvrEk7rlEUdbMdkTiWqYLPyOPo3zL19GGYafT6iiPXvKJi1AFKokYMzviNkItIyDADdjFJb xQV5TXOjOO0lckzzRFcyJLkmZYFtwtB4XRDlcAKkR5DjEUIjBL3qzybiQQQ (test code = 2HVyjSNSyLBC4GrJiVFBvm6Flzek0RfLhuDHnXUhrjFUfanylksWsNPBhBRNax1YbyhU2LDHdFmSyzI9 wGCWuhlEhgYWzv8TcxN3ob2Raa1urKpWuMWxdVp8zqCkrmBseanFjhVy1bTIdeOYjNDDgbKsoCNtlxHp lbMDfkqCjrYFaduAhtUzreGNhDZJTjRLon9LaMA6jzCGmdNNtmST5SRHzMC 9802) UhHvGfZFKwnOBkb3lvt1onCP7sFKHfH90wpE7fUWMre9H9mHAiv9IydQxeNFbbD6HnLWFmGGJhDLkldY xsjhk5qOMoFyDzPPDgjEqyF4IqNSWuzJWgiN5iP28yr1ApTZYsHcHsW13eq5TyaEEriIf0CEP1rKdmOD BfzLOvcX7fAGIiCOSwtb52WTAxfc5rhEZtQS8eFDRwrgjnGMUlo9TjQEUiD vhdtOKkbeTtTGlzI51mg4ieJwDiF3yteecySMjxczGfpV8jr5hmG1JoFBStdnKzrKH3wI6hTPbrZJbcU KzcAPNpAGD2ydCsEINrbs9dasCuoOgiLD5hAEXwGd4kPUT5qpNdDIOjP0mbr1WoOo8xtI07GPOiBKAfM B4eqwQlRC4ce5NiwlW5rJ2qWbxlHGW4 Retained/Bio s0ncgZYwXGCtrCDdWNZbIbtrilQhDUOehCRdK4MmwwpwMBbrCW6cQV6vlGiyaLUcuSInUUIsJfCfd2wc u151yHIma4yjHVOYhstroBp4mQzhA57oy5X0YbjpU50roBBsVVT5MLOjGOKouGAzDUAjMWO0YAPqxCJk S8scDYNtHB7sjyvaDGlvRXweZLNtlST7DDUqhUOfL0UtFFXzVQufXTMeqac marker 6BkCnXk7jjOTecBvyUGesZKQzZHLxKCypGDVkHlKxL7F6IHYrU3daM XJ9 Testing (test code = 9838) Informationa r8hdoOEpUWPnbEOwEyBfGLNhOQFsv7vuOUYlxHZrClZyTgQtYvDzYfeuuVYkCROlBaXmo4uev109kRFw d4ycBMVkOxE8nGKsNBMbsZYfG600PGLbEHbrr0ikz7WlKECofEGss0V2GDABTAbrTHAYLBt5z2toVfSx LaM0nIGnRNpnL6fesfGzmPIpHQYgZQj3hJ00SHBtiM2gtFDwNWnpjhDyVuN l Points 6SDxiFXZwByK3VKNdtHVmQWLsB7vmXWJeZMjpVIBkJCrfpOPuPBH0dGdzg2S0sFNmsVZthCsvXdXjPdH sLrVFf3UxCXz2gTpmT8RtTJJcKwZ4tMPgRDDyNTpwHXJiLKXzwxF4hE01KSbxbzE0nFNyw1Nqe79tr53 5aE9uiUHrIBZ4AONuYOWgjNFhSZXxXIC7SSSbkLYxT4xeXWAbUM3bllyxZC (test code = bwOQvbNBZlqKW7KDBlsVSwZ1GnFKDpUAvdQZIvdwu7AxTuPq1asJDqlEdhXWuvk3knz5oyxBMnQbx9OT WkWvUhWhojIEfbw5Kud0kaQJShdl9kTYZ8xZPeyRzzd0M4xPEdEIZyaVQvpuMkCSCtFcG5MKemUK6egj 20YGXeHCI4do7yrFQtqHmuhsNtgOCyNRdiQ4CuROXmg235PRTlZ6WeNZKes 9836) 0C1jbAxGqAiDMUkdBJ3qqK3PTWuDKq1vNLrciL2wsFetFJvY2nlfD9aYQHgSB0lvxkfp9vtWYgkNWyaU OVlbNI7zxN1OFGvyKGcI6IlvB3jILOnYXrrNLZwpzz8WhRhXy9neULxfErpFPlnHqcmDGpcLGEtiyKma bIskZyzTFPhSJUtJBxbYXMtEAhnKUJsOXFdGgCgiWqxvClfsE7qPrFzSjIm OKxsYS9hHLHxP3zybFUlVCJrRJJvQ9ojTbZyaC5cjCccSDosfkW3IHkzF13mDOZ7VPG5uvHhDXRhreMy UDEwPUGsDZ4seCEmOBCwTDKgLZ6fOUB0HAzwyTTnEXFhVHDaIVUur0TrGG0hHLAoqORqGTQ1TVIbc8Vi Z6TgRKN4KTEovS9jDQQtiBSNFDGGLEXKwfUqsjDakiILVMYcv2fjD5yfKV2 gSMzjGe0hWQJiefobAYIzhZVyepGvZMNlKSGyUEFvl8EpFHzrlaKhxe08HTAiPB6ju1MsU5ftpCVpyCv 6GRWoEYUbBNWpv7ZyCGLuqm69NOUyQzrvwUxqHZTyFd2gOd6aXCKebjCcZKV4PbJEKB9yrirjiDXmpPl xjc0iYJNbFQuaHVXtZNSnFpTubRNjJfQdQqLaxTfzxOjfFnmuJnZaAUXgNG dcP8pvOeKpFdMaPhzvXIQ5 Lab Abnormal Interpretati on (test code = 13049-8) [facility] Image-Guided FNA [id number] 20:20:54 Test Item Value Reference Range Interpretation Comments Gross Description (test b7hefKUwIFKlfIYoXTWxFj code = [id number]) aaccRbUYXbzXKaE3Yfaxbn LYtvOD1nJE1fdGuynHKwwS TyLMNmQkNxh7vye184yLRf g7znVGGPkmvclDr0lCsiU7 6lj7P4XrkcN8kyNSFsUXlx YNNzWHnoaRViJNo5DJLlmK VydzEyMjQwXHBhcGVyaDE1 CKSnFJ9rfkohVLlpUDxbLP ReipR3PTMnwNJcX0FcJXOc DM6prncsRSZ1FOaxHGXsGR Q6ZaRhYPUzc2Amlfz6UsY7 RTrfWDFuR3BtD8TnSPqlTD J8WZNzYGUsLLAbZN3LVyJd IDEyNjMwNDYiIFJFUSAzND G8BwUeFGBXGTNaHQCmNVi7 MqG2XVAlNPIDXRMfXnCxXX AwMjQgXFxuaCBcXHQgMSBc EKNwMCuiabJ8c8hcPYSquQ QpWJC2WTtivROsZPJnIJWd XFxkYiBPVlIgIiAxMjYzMD B0DfV6OSh0ZIOANfFtAvAc MJPzZDo6JUNeMTd1MUp1FZ uWWlBrFxWgJwD9InS5CRV7 ZNChTHpvisgeTMe4NDSlSP ipmwHaXSpqUsahOYjuZ26f cGFyZFxzYjMwXGVwaWNYc2 IzMFxwbGFpblxmczIwXGNm JRJPzMCniI9nqiXqpFDaA7 XaQUO9JBKgmbarQSSkRTEx RGlmZiBRdWlrOyAzIFBhcC BTdGFpbiBTbGlkZXNccGFy AUMhXL4qMBEsoINbtOUroR zcQvhadVW1JYigUjqtiJ3h dCBIWVBFUkxJTksgbmFtZT 8TAOSTKaLKWE09CpV1FfZ1 MXwxfXtcZmxkcnNsdCBcJz RdlK2wzAHmqaKrfRGquFOv cAH4VNUuDKqwm6ewKECdGE roo4LwVPuZMZWPXF5XUS3g dHD6Z9uMEXXNQ9wLhSN5c2 eddJObh5r5BWhvZLA4rWEf yvk2ZUWqPLxzz3ufDEHxAN opa8VxGYwOWZDIXB5UHT6z eXX4X4cGPWRRLPnppTlfCh tuggHtzNBmCyXegA7zfOkg oV7kdWMuaHTkbXodinXuAA OiGPZjRhh6uJP5OKQdKLrn j1mlDSKqXOcme3DqDRjGAQ JNNL1TGV5taHA5JUcUBAMJ ZIoxPXK2PRayqEZ8v0yexT Tln4d2VSjuRPR0aSqmrOEk bchfuzQhIPLnFYIfkG9lRf CTPZjdQHDoHEPMrTOfq8Sj emknIRAnpMGmMFVvfkI1NB MjHxY9VUFuHFO0KEVoEMVk mQbkCDYnr8LjMUaxtMymKN QqCqAbBK1bSFIiEWFxNFOz q5Njm72owyDxKf2sQCShTZ VgjHTxWNQsLRE0AZX7ZUaf kpRwZHYmHDtydb10WDO3b7 xmaWVsZHtcKlxmbGRpbnN0 OFiOWYFNGWuOOuGgPW0eWM nMU7KSXFmEVwghSUb8DSwk cJV7m5xdnSYbo3a9JNvoRS A4mBgrz2vnfJNgKGyjQaqg sMKmvkI2AXdCWWSKNYwEKj KjSV0dAMtDW6AUNxR7AqO3 MeA0G8wznSsgHvpgloIcgL TaZyZkkB5lnErxnZ2bSdPd TUgbKwMqLMS7ACYuEwMYnP 4pwH34HCKsmCNeTYS8FT2m mJwbQPKsT6CdP4LgdyF5CM Ptriy6LIWIUDQMBLsRYL1J CBTEGFLSUN0EIXiWBaQlAF P7EIahMAF9BwQcYtJ1LoV4 Wv9oWBTQHUVZMFkJIF3WPA ZTWWKXIK9TTgVzU2gYGKUW UkRfTUVUQURBVEFfQkVHSU 7yYms8yMexm4lWBJAJEOXW L61HGCACHOGMO6LCUIJWRY PSGDwEOYVWNh6QSNQSLREP ZE6DVHdLSyVgWKeabDHiEP ouJBQ2RCf8B5z7rDLgc0Ct lXI3ZnL0DcL4UjV7ILUqwB GARBFMSZcBTJGNQp6VRPST IUPWQX7YGrUxT3XCMF0NMx 9FWLHLGQZUDN9WZGkSPjZt A3VLEQ0IXa8IOTICHHYENB 1FLxIjTJLJS3BEUnDJR4id JVZNHATFVTBdBxGASP5qHA ZPVW1LPAYAKXRFW81CBGJV MNYTJ9HMIK1= Immediate Assessment Adequate cellularity (test code = 9837) Major Classification Indeterminate A (test code = 9839) Diagnosis (test code = l7iqzFUsHRBmiCEmQOCtYz 34) zrfnUdAJTrpPMvW1Ilmpco STifAT6lJP4roXhduHTlgF ElSWIlZbKuq1fic607tOIs y7xgSSDShjpypHa2iUguG9 8db1I9AjciH0plBLVcSPlq PUQdTSrnsLCmGAr3QITcwG VydzEyMjQwXHBhcGVyaDE1 YJEaZD4riuhrZPwaLRwlJD CtbyN5PGZptIFyC6FfKLIe JZ6eukhdYMH2UMinYOEpIV O1MeWaNFVcc0Zqkbj5HuKp hQm0d3jmTXCyLVJroNwpc1 phDFH3FEAnnWNeA1vpdR0c PSOpHS5xoxcan9ljAXdxIH emXDGoyQQ9ylM6TXYxrRYr T8CfgE1vJJKbLVVfaeUflT npuS5fVxRlLXxeMdVaTXx9 ax1rPXzwjstibUElnQ5hRB Lrm7TevC1tUCAjc2Q1fVNw IGZpbmUgbmVlZGxlIGFzcG xmUADwq586GWQqfighQUQf yPl3BpPsjBdnPpQxCHRuZW BJbmRldGVybWluYXRlIGZv pFkoU1VkACGtaMQksJ9vAJ dbh9lhN8VfcQEpSDQqeDdn xCzsgJ4zjBS7qyBwnpOkr4 ljb9erEIdkIuH2h8NoFgIx aWduXHBhcn0= Comment (test code = r0fpbGZtAZBhgAIsEZJvRh 9835) k4pERyd1Q4ifrtDA1ujDju iYh2vUvtHXWhjqM5bWFtNR ucr2guGIM6z0idgfmdXYHr VYymVa6snCQxaQjrFtGwNU WrYQb1fA93NGFcsV7qzMYg SGb2GVXxoJRkvwLmEdAyZD XmtCRyqTB8KCYmXM6jwhgh IKgbSJelRDAhrtX2SKXneF TkA3RiEVIcEP7tzfppTIN2 PPvfEPYxYMM8WsHpZTYio7 Cdymn3JiIfpVYxOQtehCHn vmhxeeUeMTKhNZEjo1Munb P7WUUgArLpyC1lGHEzqjAa jNJhv9JreJ1ch1Xyo7gzFu HmVJriFw7fcPeqzExrxhNx gUe0mBKwpZFpEKTklMezIN dpdGhvdXQgbnVjbGVhciBh dRulqFHcCUMWnDDxv7ZbIP 6bsUAgoHMaqGB7HIKxZNVe MoJoYMPoeUZaa0cnz8rvYU 9pIDKeV67jrR1bNBIeq8N4 yUQhg6IwdDkdHPuqY8ZaCV QiSEXaGDxlhPxjfvk7vYAy UoLtPNJwzCdtQ5DpMSJzlV NnlG8fZ27tv6KxPSOoZlHw Q57fb6BhfVCepWp6IDQ0gK wjZWMecDCfkS3kVRXdSBSb ik33PEVqmn2trQZkEF0aKM MqseyyAONgy7AkXRCeWury wNBngxVhFQmtK92yl1peZv CeJ1uelqphGXsualDzsO0d e4ycE0EwXHCdbgUmrWC8kI 8vEEezOFjsNPwrAIQkCAV5 apKyEAZzay6itmQvuLqrUF 0tEOIfNn6lGMN9dlLoRIQn O3tle2QfXx1frW57OBDtHN EwCC2gcwJcZK2tc9TxmnE0 yX8zNftcQLV6 Retained/Biomarker g3hhrTWeWDEpwCApSTLnNs Testing (test code = faogHsGMBjwMXzH1Zlmvmj 9871) MUokKC8cYM1mpLdobCFbeP NwGRKxMyBfz9wcv756vSSz o5beXPHUkyoghDv8dPlcG6 4ly3O9BoodS48wlVKaKKZ8 ONJxYTBexEPlRBFiLMN6DH EutUWmX1ylHELfIR3ewlgo JCdcTJhrYVXpxRX0SFGhaV UoV9QdNINmWZfqJFEzurm2 FrCrSg0bvRBpzCevHBivFT LwQRJfVDgnVKWoJqEmZ2S4 MZVbQ0ouHWD4 Informational Points u9enaUEjAFUcjTKnLjMpQY (test code = 9836) EgHZIfg4svWAIpyNMrNoFn MzNcZnRuYmpcdWMxXGRlZm Wtn0ptz279pJObc9uaSNZi LfK3vSTmYWWnwABaG349OA IxLWgrn4yoo9QuGROfoRBl k8O8EMTXVXsnHKNYWHj7r3 pkYaUhBhM3aJTpQYjdO5kl xwRbbKHgHGUlEAn4gA22DS MehK6drNPmHUcmawBwSyY5 OTckRXGsJuZ2LDNppVYgNR XzO0wzMOYvQVfkAFIbWYql mXJxQPZ4pCbmd8R4oTPxlV YryZvhKvLgOaMiUlPBb8Ey PBl4rWqmF2ArTAMsXlU0vJ QgUGFyYWdyYXBoIEZvbnQ7 gS16YMjfuqN2kLEkb1Hcm2 6th161dM1qpVGgHXS6VRGm IUXbpCYiBJFcYQA7OMSjyH IkC5omCSMiKC7uoupuSPbz ZIydNXYzsRU8YWZpoNNmH7 MvVNDpEYzwLKJwaxl3EfRn Fx1lgKXdeMzkXHytw7ijy8 zfeHDjQyh7FVCqPwLtVdeu BUfcl9Qxt9eqKNCexk7fTQ N0lJAmlMsod9Q4nCXwTNXa cHVwnxJpBLIwEoM1PYpdSN 7zam86HGRqINT4md8ktFLt pJbvfrBknOCxPVnmJ5LrSL Eji389SRSnU1BcRORgz7O8 yoYkAgVaAHMusWB9jiA2RI EqFPj1hTCyzmH5lkDfdKGo T2gnaJ1dYENsPW3rnepqv9 zqPWtfQXujTRDedVK7umR4 LVZjiONrJ9EzpN9lOJHmYK qdGPVgwva0WrXiWh5wdJHf eTcyMFxzYmtwYWdlXHBnbm NvbnRccGduZGVjXHBsYWlu XHBsYWluXGYwXGZzMjRccW xalMcsrM5bEhEeHgRfZZcw UQ9zWZAiO1rtfSVvIAEfQZ YbP6bdLqKiyI0hbCbgGWfy efU5KBgnV67tVKC5ERB4jt QxIRXuzoRpSCEbZLXgYO5b zCJhPALoUDEsQJ8uPQT0BW ablUAcVASbZRZgIUCdp8Du YK9hQTJeaBMfBXP4WKZcf5 OhP0PpHGE1OZKymY4zLVKe eSBVVCBNRCBBbmRlcnNvbi QHBQAfx1dzR0gbPS1nVUba Pk5zNGZkcgruYUJzuSJgxg EqWKNmKEEmLFXch6KuZCep qlVhcd35GECuCI8vi9XlB5 wtuJDyjHa7XREoANQxYPGt g7EsWILbel99UIDwLiwhyG gqCGCyKe5sHj3fNKFvsdKp VVX9EeJGHD7ttguujKNzaG vmlo9gVNApBNujQYLqHEJq MjJcbGFuZzEwMzNcaGljaF fzDadmPkTtIVCsYUffE4xk ZjJcZnMyMlxwYXJ9 Lab Interpretation Abnormal (test code = 64477-7) [facility] Test Item Value Reference Range Interpretation Comments TSH (test code 2.23 See_Comment Note: New Met hodology = 34532-8) and Reference R heladio change effectiv e 02/24/2018 at 14 00 Testing Perform ed at [facility] Lab Ambulat [facility], [address], [address], [place] [address] [Automate d message] The sy stem which generated this result transmit dayanna reference range : 0.27 - 4.20 mcunit/m L. The reference range was not used to int erpret this result as normal/abnormal . GASPER (test code Please schedule = GASPER) before consult with Dr. Rom[facility] 15:57:51 Test Item Value Reference Range Interpretation Comments TSH (test code 2.23 See_Comment Note: New Met hodology = 06334-1) and Reference R heladio change effectiv e 02/24/2018 at 14 00 Testing Perform ed at [facility] Lab Ambulat ory [facility], [address] [place] [address], [address], [place] [address] [Automate d message] The sy stem which generated this result transmit dayanna reference range : 0.27 - 4.20 mcunit/m L. The reference range was not used to int erpret this result as normal/abnormal . GASPER (test code Please schedule = GASPER) before consult with Dr. [facility] [id number] 15:57:41 Test Item Value Reference Range Interpretation Comments T4 Free (test 1.22 ng/dL 0.93-1.70 Testing Perfor med at code = 3024-7) [facility] [address], [address], [place] [address] GASPER (test code Please schedule = GASPER) before consult with Dr[facility] [id number] 15:57:41 Test Item Value Reference Range Interpretation Comments T4 Free (test 1.22 ng/dL 0.93-1.70 Testing Perfor med at code = 3024-7) [facility] Lab Ambul [facility], [facility], [address], [place] [address] GASPER (test code Please schedule = GASPER) before consult with Dr. [facility]- XR FLUORO [id number] 05:40:00 [facility] : 1950 Sex: F Patient Name: RICHARD NIETO Unit No: [id number] EXAMS: CPT CODE: [id number] XR FLUORO NDL 77485 Fluoroscopically guided injection of the right shoulder with steroid FINDINGS: After informed consent was obtained a needle was placed in the right shoulder with fluoroscopic guidance. Its position was confirmedby injecting Isovue 300 and obtaining a radiograph. Subsequently 2 mL of Kenalog 40 mg per cc and 2 mL of lidocaine was injected. No immediate complications were encountered. 10 seconds of fluoroscopy time was utilized. IMPRESSION: Technically successful steroid injection of the right shoulder at 0540 Reported and signed by: Erlin Washington M.D. CC: Stephanie Forrest MD; Jody MORTON Technologist: RT. Odette(R) Transcribed D/ (7323) AdalbertoJ [facility] NAME: RICHARD NIETO [address] [place] [address] PHYS: Jody French : 1950 AGE: 72 SEX: F [place] [address] LOC: Y.RAD PHONE #: [phone] EXAM DATE: 09/03/2022 STATUS: DEP CLI FAX #: [phone] RAD #: D/C DT PAGE 1 Signed Report Patient Name: RICHARD NIETO Unit No: [id number] EXAMS: CPT CODE: [id number] XR FLUORO NDL 99371 (Continued) Orig Print D/T: S: 09/04/2022 (0543) [facility] NAME: RICHARD NIETO [address] [place] [address] PHYS: Jody French : 1950GE: 72 SEX: F [place] [address] LOC: Y.RAD PHONE #: [phone] EXAM DATE: 09/03/2022 STATUS: DEP CLI FAX #: [phone] RAD #: D/C DT PAGE 2 Signed MelhlhJVPC-WqP-1 (COVID-19) RNA [Presence] in Respiratory specimen by EARL with probe [id number] 20:23:09 Test Item Value Reference Range Interpretation Comments SARS-CoV-2 (COVID-19) RNA Not detected [Presence] in Respiratory specimen by EARL with probe detection (test code = 33460-4) Whether patient is employed in a Unknown healthcare setting (test code = 12167-7) Whether the patient has symptoms Unknown related to condition of interest (test code = 31243-6) Whether the patient was Unknown hospitalized for condition of interest (test code = 00135-4) Whether the patient was admitted Unknown to intensive care unit (ICU) for condition of interest (test code = 18159-1) Whether patient resides in a Unknown congregate care setting (test code = 97053-6) status (test code = Unknown 71164-5) Date and time of symptom onset Unknown (test code = 98711-3) [facility] Pre/Post [id number] 13:19:29 Test Item Value Reference Range Interpretation Comments Ventricular rate (test code = 253) Atrial rate (test code = 255) [place] interval (test code = 266) QRSD interval (test code = 260) QT interval (test code = 264) QTC interval (test code = 265) P axis 1 (test code = 267) QRS axis 1 (test code = 268) T wave axis (test code = 270) EKG impression (test Normal sinus code = 273) rhythm-Low voltage QRS-Septal infarct , age undetermined-Abnormal ECG-No previous ECGs available-Electronica lly Signed By Ignacio Aburto MD ([id number]) on 06/18/2022 8:19:[address] [facility] Pre/Post [id number] 13:19:29 Test Item Value Reference Range Interpretation Comments Ventricular rate (test code = 253) Atrial rate (test code = 255) [place] interval (test code = 266) QRSD interval (test code = 260) QT interval (test code = 264) QTC interval (test code = 265) P axis 1 (test code = 267) QRS axis 1 (test code = 268) T wave axis (test code = 270) EKG impression (test Normal sinus code = 273) rhythm-Low voltage QRS-Septal infarct , age undetermined-Abnormal ECG-No previous ECGs available-Electronica lly Signed By Ignacio Aburto MD ([id number]) on 06/18/2022 8:19:[address] [facility] Pre/Post [id number] 13:19:29 Test Item Value Reference Range Interpretation Comments Ventricular rate (test code = 253) Atrial rate (test code = 255) [place] interval (test code = 266) QRSD interval (test code = 260) QT interval (test code = 264) QTC interval (test code = 265) P axis 1 (test code = 267) QRS axis 1 (test code = 268) T wave axis (test code = 270) EKG impression (test Normal sinus code = 273) rhythm-Low voltage QRS-Septal infarct , age undetermined-Abnormal ECG-No previous ECGs available-Electronica lly Signed By Ignacio Aburto MD ([id number]) on 06/18/2022 8:19:[address] [facility] Pre/Post [id number] 13:19:29 Test Item Value Reference Range Interpretation Comments Ventricular rate (test 60 code = 253) Atrial rate (test code = 60 255) [place] interval (test code = 194 266) QRSD interval (test code 74 = 260) QT interval (test code = 408 264) QTC interval (test code 408 = 265) P axis 1 (test code = 47 267) QRS axis 1 (test code = -22 268) T wave axis (test code = 45 270) EKG impression (test Normal sinus code = 273) rhythm-Low voltage QRS-Septal infarct , age undetermined-Abnormal ECG-No previous ECGs available-Electronica lly Signed By Ignacio Aburto MD ([id number]) on 06/18/2022 8:19:[address] [facility] Pre/Post [id number] 13:19:29 Test Item Value Reference Range Interpretation Comments Ventricular rate (test code = 253) Atrial rate (test code = 255) [place] interval (test code = 266) QRSD interval (test code = 260) QT interval (test code = 264) QTC interval (test code = 265) P axis 1 (test code = 267) QRS axis 1 (test code = 268) T wave axis (test code = 270) EKG impression (test Normal sinus code = 273) rhythm-Low voltage QRS-Septal infarct , age undetermined-Abnormal ECG-No previous ECGs available-Electronica lly Signed By Ignacio Aburto MD ([id number]) on 06/18/2022 8:19:27 AM [facility] [id number] 13:19:29 Test Item Value Reference Range Interpretation Comments Ventricular rate (test 60 code = 253) Atrial rate (test code = 60 255) [place] interval (test code = 194 266) QRSD interval (test code 74 = 260) QT interval (test code = 408 264) QTC interval (test code 408 = 265) P axis 1 (test code = 47 267) QRS axis 1 (test code = -22 268) T wave axis (test code = 45 270) EKG impression (test Normal sinus code = 273) rhythm-Low voltage QRS-Septal infarct , age undetermined-Abnormal ECG-No previous ECGs available-Electronica lly Signed By Ignacio Aburto MD ([id number]) on 06/18/2022 8:19:27 AM [facility] XR FLUORO [id number] 16:23:00 [facility] : 1950 Sex: F Patient Name: RICHARD NIETO Unit No: [id number] EXAMS: CPT CODE: [id number] XR FLUORO NDL 93442 FLUOROSCOPICALLY GUIDED INJECTION OF THE RIGHT SHOULDER WITH STEROID AND MARCAINE COMMENT: COMPARISON: No prior exams available. After informed consent was obtained a needle was placed in the glenohumeral joint with fluoroscopic guidance. Its position was confirmed by injecting Isovue 300 and obtaining an AP radiograph. 13 seconds of fluoroscopy time was utilized. Subsequently 2mL of Kenalog 40 mg per cc and 2mL of 0.75 percent Marcaine was injected. No immediate complications were encountered. at 1623 Reported and signed by: Mike Romero MD CC: Stephanie Forrest MD Technologist: Britney Marshall RT.(R) Transcribed D/ (4973) t.BETZAIDAR.JCL [facility] NAME: RICHARD NIETO [address] [facility] PHYS: GOMMU.Jerald - AdrianeStephanie Zabala : 1950 AGE: 71 SEX: F [place] [address] LOC: Y.RAD PHONE #: [phone] EXAM DATE: 01/08/2022 STATUS: REG CLI FAX #: [phone] RAD #: D/C DT PAGE 1 Sig hui Report Patient Name: RICHARD NIETO Unit No: [id number] EXAMS: CPT CODE: [id number] XR FLUORO NDL 19343 <Continued> Orig Print D/T: S: 01/08/2022 (5033) [facility] NAME: RICHARD NIETO [address] [facility] PHYS: GOMMU.Jerald - Stephanie Forrest : 1950 AGE: 71 SEX: F [place] [address] LOC: Y.RAD PHONE #: [phone] EXAM DATE: 01/08/2022 STATUS: REG CLI FAX #: [phone] RAD #: D/C DT PAGE 2 Signed Report- MRI UP JNT W/O CONT [id number] 15:18:00 [facility] 1950 Sex: F Patient Name: RICHARD NIETO Unit No: [id number] EXAMS: CPT CODE: [id number] [place] JNT W/[place] [address] MR of the left shoulder without contrast TECHNIQUE: Paracoronal, parasagittal and axial multisequence images obtained. COMPARISON: None available. FINDINGS: Acromioclavicular joint: Mild degenerative changes. Rotator cuff: Supraspinatus tendinosis is demonstrated with low-grade bursal surface tearing. An interstitial tear of the superior subscapularis tendon is also low- grade. No high-grade rotator cuff tear is identified. Rotator cuff musculature is normal in size and signal intensity. Long head biceps tendon: Biceps tendinosis is demonstrated with linear signal at the groove entrance, concerning for possible tear. Labrum: No definite labral tear is visualized. Cartilage/ bone: Moderate humeral head cartilage loss is present inferiorly. No acute fracture. No suspicious osseous lesion. Other: No joint effusion present. IMPRESSION: 1. No high-grade rotator cuff tear. 2. Moderate humeral head carti shari loss. 3. Biceps tendinosis with possible partial tear. at 1518 Reported and signed by: Erlin Washington M.D. CC: Stephanie Forrest MD Technologist: CLAY PINEDA RT(R) Transcribed D/ (1518) t.BETZAIDAR.[facility] NAME: RICHARD NIETO [address] [facility] PHYS: GOMMU.01 - Stephanie Forrest : 1950 AGE: 71 SEX: F [place], [place] [address] LOC: Y.MRI PHONE #: [phone] EXAM DATE: 12/23/2021 STATUS: REG CLI FAX #: [phone] RAD #: D/C DT PAGE 1 Signed Report PatientName: RICHARD NIETO Unit No: [id number] EXAMS: CPT CODE: [id number] [place] JNT W/[place] [address] &lt ;Continued> Orig Print D/T: S: 12/23/2021 (1521) [facility] NAME: RICHARD NIETO [address] [facility] PHYS: GOMMU.01 - Stephanie Forrest : 1950 AGE: 71 SEX: F [place], [place] [address] LOC: Y.MRI PHONE #: [phone] EXAM DATE: 12/23/2021 STATUS: REG CLI FAX#: [phone] RAD #: D/C DT PAGE 2 Signed Report- XR FLUORO [id number] 12:38:00 [facility] : 1950 Sex: F Patient Name: RICHARD NIETO Unit No: [id number] EXAMS: CPT CODE: [id number] XR FLUORO NDL 37190 FLUOROSCOPICALLY GUIDED RIGHT SHOULDER STEROID AND MARCAINE INJECTION Comment: COMPARISON: No prior exams available. After informed consent was obtained a 25-gauge needle is inserted into the right shoulder jointunder fluoroscopic control using sterile technique. 3 mL of Isovue-300 is instilled into the joint followed by 2 mL of Kenalog 40 mg/ml and 5 mL of Marcaine. The patient tolerated the procedure well. 0.5 minutes of fluoroscopy time was used on this exam. Electronically Signed by Hakeem Salinas MD on06/16/2021 at 1238 Reported and signed by: Hakeem Salinas MD CC: Stephanie Forrest MD Technologist: Britney Marshall RT.(R) Transcribed D/ (3820) KannanG [facility] NAME: RICHARD NIETO [address] [facility] PHYS: MICHAEL AdrianeStephanie Sagrario : 1950 AGE: 70 SEX: F [place], [place] [address] LOC: Y.RAD PHONE #: [phone] EXAM DATE: 06/12/2021 STATUS: DEP CLI FAX #: [phone] RAD #: D/C DT PAGE 1 Signed Report Patient Name: RICHARD NIETO Unit No: [id number] EXAMS: CPT CODE: [id number] XR FLUORO NDL 48599 <Continued> Orig Print D/T: S: 06/16/2021 (1246) [facility] NAME: RICHARD NIETO [address] [facility] PHYS: GOMMU. - Mahesh Garciakikovilma : 1950 AGE: 70 SEX: F [place], [place] [address] LOC: Y.RAD PHONE #: [phone] EXAM DATE: 06/12/2021 STATUS: DEP CLI FAX #: [phone] RAD #: D/C DT PAGE 2Signed Report- MRI UP JNT W/O CONT [id number] 11:17:00 [facility] : 1950 Sex: F Patient Name: RICHARD NIETO Unit No: [id number] EXAMS: CPT CODE: [id number] [place] JNT W/[place] [address] EXAM: MRI RIGHT SHOULDER WITHOUT CONTRAST DIAGNOSIS: 1. Marked distal supraspinatus tendinosis. Thereis a partial-thickness bursal surface and interstitial tear distal supraspinatus tendon measuring approximately 2 3 mm in thickness. There is moderate subacromial subdeltoid bursitis. 2. Mild to moderat e distal subscapularis tendinosis. 3. Linear signal undermines superior labrum. This suggests a minimally displaced superior labral tear. There there may also be a minimally displaced anterior labral tear.. INDICATION: Right shoulder pain TECHNIQUE: Multiplanar, multisequence MRI is obtained of the right shoulder without contrast. COMPARISON: None DISCUSSION: Osseous acromion outlet: The acromion is shallow type II, with mild lateral downsloping. Mild AC joint arthrosis is noted. Rotator cuff: Supraspinatus and subscapularis tendinopathy as described. Infraspinatus and teres minor tendons are intact. Biceps tendon and anchor: The biceps anchor is intact. The biceps tendon is unremarkable, without evidence of dislocation. Labral and capsular structures: Labral findings as described. Osseous structures: No evidence of fracture or avascular necrosis. at 1117 Reported and signed by: Hakeem Salinas MD CC: Stephanie Forrest MD Technologist : CLAY PINEDA RT(R) Transcribed D/ (1117) t.BETZAIDAR.[facility] NAME: RICHARD NIETO [address] [facility] PHYS: GOMMU.01 - Stephanie Forrest : 1950 AGE: 70 SEX: F [place], [place] [address] LOC: Y.RAD PHONE #: [phone] EXAM DATE: 06/12/2021 STATUS: REG CLI FAX #: [phone] RAD #: D/C DT PAGE 1 Signed Report Patient Name: RICHARD NIETO Unit No: [id number] EXAMS: CPT CODE: [id number] MRI [place] JNT W/[place] [address] <Continued> Orig Print D/T: S: 06/12/2021 (1120) [facility] NAME: RICHARD NIETO [address] [facility] PHYS: GOMMU.Jerald - Stephanie Forrest : 1950 AGE: 70 SEX: F [place], [place] [address] LOC: Y.RAD PHONE #: [phone] EXAM DATE: 06/12/2021 STATUS: REG CLI FAX #: [phone] RAD #: D/C DT PAGE 2 Signed Report
[2023-05-08] MEDS ORDERED: METOPROLOL TAR 25 MG TAB ONE ×2 (14:12→15:37)
[2023-05-08] MEDS ORDERED: MAGNESIUM SULFATE 1 gm IVPB 1 GM/100 ML BAG IV ONE (14:13)
[2023-05-08] MEDS ORDERED: NA CHLORIDE 0.9% 500 ML ONE (14:13)
[2023-05-08 14:21] LABS: SARS-CoV-2 Antigen Rapid Res Negative (Negative)
[2023-05-08 14:22] LABS: Absolute Lymphocytes (CBC) 1.4 K/uL (0.7-4.9); Hematocrit 37.2 % (36.0-45.0); Lymphocytes % 27.1 % (15.3-44.8); MCV 91.2 fL (80-100); MPV 8.4 fL (7.6-11.3); RBC Red Blood Cell Count 4.08 M/uL (3.86-4.86)
[2023-05-08 14:49] LABS: Albumin 3.4 g/dL (3.4-5.0); Bilirubin Total 0.7 mg/dL (0.2-1.0); Troponin High Sensitivity 19.6 pg/mL (<58.9)
[2023-05-08 15:01] LABS: Specific Gravity 1.007 (1.005-1.030); Urine Bacteria None Seen /HPF (<20); Urine Bilirubin NEGATIVE (Negative); Urine Blood Trace (Negative); Urine Clarity Clear (Clear); Urine Color Colorless (Yellow); Urine Glucose NEGATIVE (Negative); Urine Protein NEGATIVE (Negative); Urine RBC <5 /HPF (None Seen); Urine Urobilinogen Normal (Normal)
[2023-05-08 15:06] LABS: Protime INR 1.03
--- NOTE | 2023-05-08 15:16 | ER ---
Nurse's Notes [facility] Name: Nelly Wiseman Age: 72 yrs Sex: Female : 1950 Arrival Date: 05/08/2023 Time: 13:23 Bed 5 Private MD: Diagnosis: Paroxysmal atrial fibrillation-with RVR;Fever, unspecified Presentation: 05/08 13:50 Chief complaint: Patient states: cough, body aches, shortness of breath and chest ss tightness x 3 days. Coronavirus screen: Client denies travel out of the [place] in the last 14 days. Ebola Screen: Patient denies exposure to infectious person. Patient denies travel to an Ebola-affected area in the 21 days before illness onset. Initial Sepsis Screen: Does the patient meet any 2 criteria? No. Patient's initial sepsis screen is negative. Does the patient have a suspected source of infection? No. Patient's initial sepsis screen is negative. Risk Assessment: Do you want to hurt yourself or someone else? Patient reports no desire to harm self or others. Onset of symptoms was May 05, 2023. 13:50 Method Of Arrival: Ambulatory ss 13:50 Acuity: SAVI 2 ss Triage Assessment: 17:04 General: Appears in no apparent distress. uncomfortable. General: Behavior is calm, ko1 cooperative, appropriate for age. Respiratory: Onset: The symptoms/episode began/occurred. Respiratory: Reports shortness of breath at rest the patient has mild shortness of breath. Historical: - Allergies: 13:50 No Known Allergies; ss - Home Meds: 14:01 Metoprolol [Active]; ss - PMHx: 13:50 Atrial fibrillation; Hypertensive disorder; Asthma; breast CA; high cholesterol; ss - PSHx: 13:50 hysterectomy; ss - Immunization history:: Adult Immunizations up to date. - Family history:: not pertinent. - Social history:: Smoking status: Patient denies any tobacco usage or history of. - Hospitalizations: : No recent hospitalization is reported. Screenin:45 [facility] ED Fall Risk Assessment (Adult) History of falling in the last 3 months, ko1 including since admission No falls in past 3 months (0 pts) Confusion or Disorientation No (0 pts) Intoxicated or Sedated No (0 pts) Impaired Gait No (0 pts) Mobility Assist Device Used No (0 pt) Altered Elimination No (0 pt) Score/Fall Risk Level 0 - 2 = Low Risk Oriented to surroundings, Maintained a safe environment, Educated pt \T\ family on fall prevention, incl call for assistance when getting out of bed, Assessed \T\ reinforced patient's understanding of fall precautions, Provided non-skid footwear, Hourly rounding (assess needs \T\ fall precautionary measures) done, Used ambulatory aids as needed (educated on \T\ assisted with), Used gait belt as appropriate. Abuse screen: Denies threats or abuse. Denies injuries from another. Nutritional screening: No deficits noted. Tuberculosis screening: No symptoms or risk factors identified. Assessment: 13:45 General: Appears in no apparent distress. comfortable, Behavior is calm, cooperative, ko1 appropriate for age. Pain: Denies pain. Neuro: No deficits noted. Cardiovascular: Rhythm is atrial fibrillation with rapid ventricular response. Cardiovascular: Reports lightheadedness, shortness of breath. Respiratory: Airway is patent Respiratory effort is even, unlabored, Breath sounds are clear bilaterally. GI: No deficits noted. : No deficits noted. EENT: No deficits noted. Derm: No deficits noted. Musculoskeletal: No deficits noted. Vital Signs: 13:50 BP 118 / 61; Pulse 144; Resp 18; Temp 98(O); Pulse Ox 95% on R/A; Pain 0/10; ss 13:52 BP 96 / 74; ss 14:00 BP 149 / 98; Pulse 158; Resp 18; Pulse Ox 97% on R/A; ph 14:32 BP 121 / 87; Pulse 155; Resp 18; Pulse Ox 95% on R/A; ph 15:29 Weight 77.11 kg; ko1 15:58 BP 135 / 78; Pulse 123; Resp 18; Pulse Ox 95% on R/A; ph 17:09 BP 107 / 81; Pulse 122; Resp 18; Pulse Ox 96% on R/A; ko1 13:50 Pain Scale: Adult ss Vitals: 14:32 Cardiac Rhythm Assessment Atrial fibrillation W/rapid ventricular response. ph ED Course: 13:26 Patient arrived in ED. ts1 13:27 Monroe Wang MD is Attending Physician. rn 13:45 Patient has correct armband on for positive identification. Bed in low position. Call ko1 light in reach. Side rails up X 1. Client placed on continuous cardiac and pulse oximetry monitoring. NIBP monitoring applied. quality assurance monitor on. Door closed. Noise minimized. Lights dimmed. Warm blanket given. 13:50 Triage completed. ss 13:50 Arm band placed on right wrist. ss 14:10 Inserted saline lock: 20 gauge in left antecubital area, using aseptic technique. Blood ko1 collected. 14:16 Strep Sent. ko1 14:16 SARS RAPID Sent. ko1 14:16 Flu Sent. ko1 14:16 Lactate w/ 2H reflex if indic. Sent. ko1 14:16 Protime (+inr) Sent. ko1 14:16 Ptt, Activated Sent. ko1 14:16 CMP Sent. ko1 14:16 CBC with Diff Sent. ko1 14:16 Troponin High Sensitivity Sent. ko1 14:16 BNP Sent. ko1 14:20 Megan Lewis, RN is Primary Nurse. ko1 14:22 Chest Single View XRAY In Process Unspecified. EDMS 14:31 Manual Differential Sent. ko1 14:31 Throat Culture Sent. ko1 14:32 Blood Culture Adult (2) Sent. ko1 14:36 BNP Sent. ko1 14:36 Troponin High Sensitivity Sent. ko1 14:36 CBC with Diff Sent. ko1 14:36 CMP Sent. ko1 14:36 Lactate w/ 2H reflex if indic. Sent. ko1 14:36 Protime (+inr) Sent. ko1 14:36 Ptt, Activated Sent. ko1 14:55 Blood Culture Adult (2) Sent. ko1 14:55 Urinalysis w/ reflexes Sent. ko1 15:15 Raymond Bernard MD is Hospitalizing Provider. rn 17:03 No provider procedures requiring assistance completed. ko1 17:03 Patient admitted, IV remains in place. ko1 Administered Medications: 14:17 Drug: Metoprolol PO 25 mg Route: PO; ph 14:31 Drug: NS 0.9% IV 500 ml Route: IV; Rate: bolus; Site: left antecubital; ko1 14:31 Drug: Magnesium Sulfate IVPB 1 grams Route: IVPB; Infused Over: 1 hrs; Site: left ko1 antecubital; 15:29 Drug: Metoprolol PO 25 mg Route: PO; ko1 15:34 Drug: Enoxaparin Sub-Q 1 mg/kg Route: Sub-Q; Site: left lower abdomen; ko1 15:53 Drug: Metoprolol IVP 2.5 mg Route: IVP; Site: left antecubital; ko1 Medication: 17:03 VIS not applicable for this client. ko1 Outcome: 15:15 Decision to Hospitalize by Provider. rn 17:05 Admitted to Tele accompanied by tech, family with patient, via wheelchair, room 209. ko1 17:05 Condition: good 17:05 Discharge instructions given to patient, family, Instructed on the need for admit, Demonstrated understanding of instructions. 17:13 Patient left the ED. ko1 Signatures: Dispatcher [employer] EDMS Monroe Wang MD MD rn Blanchard, Shelby, RN RN ss Hall, Patricia, RN RN ph Oliver, Kathy, RN RN ko1 Julissa Adams PAS PAS ts1
--- NOTE | 2023-05-08 15:17 | EDPHYS ---
Physician Documentation [facility] Name: Nelly Wiseman Age: 72 yrs Sex: Female : 1950 Arrival Date: 05/08/2023 Time: 13:23 Bed 5 Private MD: ED Physician Monroe Wang HPI: 05/08 13:47 This 72 yrs old Female presents to ER via Unassigned with complaints of Shortness Of rn Breath, Cough, Dizziness. 13:47 The patient has shortness of breath at rest, with light activity. Onset: The rn symptoms/episode began/occurred 2 day(s) ago. Duration: The symptoms are intermittent. The patient's shortness of breath is aggravated by coughing, exertion, light activity. Associated signs and symptoms: Pertinent positives: chest pain, non-productive cough, fever, Pertinent negatives: hemoptysis, loss of consciousness. Severity of symptoms: At their worst the symptoms were moderate in the emergency department the symptoms are unchanged. The patient has not experienced similar symptoms in the past. The patient has not recently seen a physician. Historical: - Allergies: 13:50 No Known Allergies; ss - Home Meds: 14:01 Metoprolol [Active]; ss - PMHx: 13:50 Atrial fibrillation; Hypertensive disorder; Asthma; breast CA; high cholesterol; ss - PSHx: 13:50 hysterectomy; ss - Immunization history:: Adult Immunizations up to date. - Family history:: not pertinent. - Social history:: Smoking status: Patient denies any tobacco usage or history of. - Hospitalizations: : No recent hospitalization is reported. 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 Exam: 13:47 Constitutional: This is a well developed, well nourished patient who is awake, alert, rn and in no acute distress. Head/Face: Normocephalic, atraumatic. ENT: dry MM Cardiovascular: Tachycardic, irregular Respiratory: Clear bilateral breath sounds. No increased work of breathing, no retractions or nasal flaring. Abdomen/GI: Soft, non-tender Skin: Warm, dry MS/ Extremity: Pulses equal, no cyanosis. Neuro: Awake and alert, GCS 15 14:04 ECG was reviewed by the Attending Physician. rn Vital Signs: 13:50 BP 118 / 61; Pulse 144; Resp 18; Temp 98(O); Pulse Ox 95% on R/A; Pain 0/10; ss 13:52 BP 96 / 74; ss 14:00 BP 149 / 98; Pulse 158; Resp 18; Pulse Ox 97% on R/A; ph 14:32 BP 121 / 87; Pulse 155; Resp 18; Pulse Ox 95% on R/A; ph 15:29 Weight 77.11 kg; ko1 15:58 BP 135 / 78; Pulse 123; Resp 18; Pulse Ox 95% on R/A; ph 17:09 BP 107 / 81; Pulse 122; Resp 18; Pulse Ox 96% on R/A; ko1 13:50 Pain Scale: Adult ss MDM: 13:27 Patient medically screened. rn 15:10 Differential diagnosis: Anemia Bronchitis CHF exacerbation, Myocardial Infarction rn pneumonia, Pneumothorax pulmonary edema, Sepsis. Data reviewed: vital signs, nurses notes, lab test result(s), EKG, radiologic studies, plain films, and as a result, I will admit patient. Consideration of Admission/Observation Patient was admitted/placed on observation. Escalation of care including admission/observation considered. Counseling: I had a detailed discussion with the patient and/or guardian regarding: the historical points, exam findings, and any diagnostic results supporting the discharge/admit diagnosis, lab results, radiology results, the need for further work-up and treatment in the hospital. Response to treatment: the patient's symptoms have mildly improved after treatment, and as a result, I will admit patient. ED course: BP borderline but not low, given PO metoprolol with 20 point drop in HR, will give more metoprolol and observe. Admitted to Dr. Bernard for further rate control, lovenox given. Troponin neg. . 05/08 13:43 Order name: Blood Culture Adult (2) rn 07/01 13:43 Order name: CBC with Diff rn 05/08 13:43 Order name: CMP; Complete Time: 14:57 rn 05/08 13:43 Order name: Lactate w/ 2H reflex if indic.; Complete Time: 14:57 rn 05/08 13:43 Order name: Protime (+inr); Complete Time: 15:10 rn 05/08 13:43 Order name: Ptt, Activated; Complete Time: 15:10 rn 05/08 13:43 Order name: Urinalysis w/ reflexes; Complete Time: 15:10 rn 05/08 13:43 Order name: Flu; Complete Time: 14:57 rn 05/08 13:43 Order name: SARS RAPID; Complete Time: 14:57 rn 05/08 13:43 Order name: Strep rn 05/08 13:43 Order name: Troponin High Sensitivity; Complete Time: 14:57 rn 05/08 13:43 Order name: BNP; Complete Time: 14:57 rn 05/08 14:25 Order name: Throat Culture EDAK 05/08 14:28 Order name: Manual Differential EDAK 05/08 13:43 Order name: Chest Single View XRAY; Complete Time: 15:28 rn 05/08 13:43 Order name: EKG; Complete Time: 13:45 rn 05/08 13:43 Order name: Accucheck; Complete Time: 15:47 rn 05/08 13:43 Order name: Cardiac monitoring; Complete Time: 13:53 rn 05/08 13:43 Order name: EKG - Nurse/Tech; Complete Time: 14:16 rn 05/08 13:43 Order name: IV Saline Lock - Large Bore; Complete Time: 14:32 rn 05/08 13:43 Order name: Labs collected and sent; Complete Time: 14:32 rn 05/08 13:43 Order name: O2 Per Protocol; Complete Time: 13:53 rn 05/08 13:43 Order name: O2 Sat Monitoring; Complete Time: 13:53 rn 05/08 13:43 Order name: Vital Signs; Complete Time: 13:53 rn EC:04 Rate is 156 beats/min. Rhythm is irregularly irregular. QRS interval is normal. QT rn interval is normal. No Q waves. T waves are Normal. No ST changes noted. Clinical impression: Atrial Fibrillation. Interpreted by me. Reviewed by me. Administered Medications: 14:17 Drug: Metoprolol PO 25 mg Route: PO; ph 14:31 Drug: NS 0.9% IV 500 ml Route: IV; Rate: bolus; Site: left antecubital; ko1 14:31 Drug: Magnesium Sulfate IVPB 1 grams Route: IVPB; Infused Over: 1 hrs; Site: left ko1 antecubital; 15:29 Drug: Metoprolol PO 25 mg Route: PO; ko1 15:34 Drug: Enoxaparin Sub-Q 1 mg/kg Route: Sub-Q; Site: left lower abdomen; ko1 15:53 Drug: Metoprolol IVP 2.5 mg Route: IVP; Site: left antecubital; ko1 Disposition: 15:10 Critical Care:. rn Disposition Summary: 05/08/23 15:15 Hospitalization Ordered Hospitalization Status: Inpatient Admission rn Provider: Raymond Bernard rn Location: Telemetry/MedSurg (Inpatient) rn Condition: Stable rn Problem: an acute exacerbation rn Symptoms: have improved rn Bed/Room Type: Standard rn Room Assignment: 209(05/08/23 16:18) dw Diagnosis - Paroxysmal atrial fibrillation - with RVR rn - Fever, unspecified rn Forms: - Medication Reconciliation Form rn - SBAR form regulatory affairs intern time excluding procedures: 15:10 Critical care time: Bedside Care: 35 minutes. Total time: 35 minutes rn Signatures: Dispatcher [employer] Juanita Maxwell RN RN dw Monroe Wang MD MD rn Blanchard, Shelby RN RN Kae Duarte RN RN Megan Lewis, RN RN ko1 Corrections: (The following items were deleted from the chart) 14:04 13:47 Constitutional: This is a well developed, well nourished patient who is awake, rn alert, and in no acute distress. Head/Face: Normocephalic, atraumatic. ENT: dry MM Cardiovascular: Tachycardic, irregular Respiratory: Clear bilateral breath sounds. No increased work of breathing, no retractions or nasal flaring. Abdomen/GI: Soft, non-tender Skin: Warm, dry MS/ Extremity: Pulses equal, no cyanosis. Neuro: Awake and alert, GCS 15 rn 16:18 15:15 rn dw
--- NOTE | 2023-05-08 15:27 | RAD REPORT ---
EXAM DESCRIPTION: Tobyt Single View05/08/2023 2:20 pm CLINICAL HISTORY: Cough;Fever COMPARISON: Chest Pa And Lat (2 Views) dated 02/24/2022; Chest Pa And Lat (2 Views) dated 06/29/2018; CHEST PA AND LAT 2 VIEW dated 08/13/2015; CHEST PA AND LAT 2 VIEW dated 04/18/2012 TECHNIQUE: Portable AP view of the chest. FINDINGS: The lungs are clear. No pneumothorax or effusion. The cardiomediastinal contours are unre markable. IMPRESSION: No acute cardiopulmonary process.
[2023-05-08] MEDS ORDERED: ENOXAPARIN 80 MG/0.8 ML SQ ONE (15:44)
[2023-05-08 15:54] LABS: Blood Morphology Comment NOT SEEN (NOT SEEN); Platelet Estimate ADEQ
[2023-05-08] MEDS ORDERED: METOPROLOL TARTRATE 5 MG/5 ML INJ IV ONE (15:59)
[2023-05-08 17:48] VITALS: BMI 26.6
[2023-05-08] MEDS ORDERED: ONDANSETRON 4 MG/2 ML VIAL IV PRN (17:56)
[2023-05-08] MEDS ORDERED: ACETAMINOPHEN 500 MG TAB PO PRN (17:56)
[2023-05-08] MEDS: METOPROLOL TAR 50 MG TAB PO SCH (19:49)
[2023-05-08 20:06] VITALS: O2SAT 98
[2023-05-08] MEDS ORDERED: ENOXAPARIN 80 MG/0.8 ML SQ SCH (21:00)
[2023-05-09 01:43] VITALS: TEMP 97.6
[2023-05-09 05:31] LABS: Absolute Lymphocytes (CBC) 1.4 K/uL (0.7-4.9); Hematocrit 31.3 % (36.0-45.0); Lymphocytes % 34.3 % (15.3-44.8); MCV 90.9 fL (80-100); MPV 8.7 fL (7.6-11.3); RBC Red Blood Cell Count 3.44 M/uL (3.86-4.86)
[2023-05-09 05:43] LABS: Potassium 3.8 mEq/L (3.5-5.1)
[2023-05-09 07:59] VITALS: BP 126/59
[2023-05-09] MEDS: METOPROLOL TAR 50 MG TAB PO SCH (08:26)
[2023-05-09 08:48] LABS: Blood Morphology Comment NOT SEEN (NOT SEEN); Platelet Estimate DECR
[2023-05-09] MEDS ORDERED: ENOXAPARIN 80 MG/0.8 ML SQ SCH (09:00)
--- NOTE | 2023-05-09 11:17 | EKG ---
Test Date: 2023-05-08 Test Time: 13:57:39 Blowing Weasand: PH MEASUREMENT RESULTS: Intervals: Rate: 156 CO: QRSD: 70 QT: 288 QTc: 464 [place]over: P: CO: QRS: 194 T: 142 INTERPRETIVE STATEMENTS: Suspect arm lead reversal, interpretation assumes no reversal Atrial fibrillation with premature ventricular or aberrantly conducted complexes Low voltage QRS Inferior infarct, age undetermined Anterolateral infarct, age undetermined Abnormal ECG No previous ECG available for comparison Electronically Signed On 05-09-23 11:16:33 CDT by Aidan Olivas
--- NOTE | 2023-05-10 09:43 | SS ---
Date of Discharge: 05/09/2023 Chief Complaint: Fever, chest heaviness, shortness of breath. History Of Present Illness: This is a 72-year-old very pleasant female patient with history of atria l fibrillation long time ago, has been in sinus rhythm for long time. Sees game artist in [place], Dr. Lopez. The patient says that she was doing fine until last 4 days or so, she started to have a problem where she felt like she was having chest heaviness and felt like she had to burp frequently a nd was experiencing some shortness of breath with daily activities. Denies any nausea, vomiting, yaakov rrhea. The patient reported having fever with chills with temperature between 102-103 degree Fahrenh eit a couple of times this week. With all these ongoing symptoms, she came into emergency room. Afte r she was evaluated in the ER, she was diagnosed as having atrial fibrillation with rapid ventricular rate, heart rate around 150-160, and she was given IV metoprolol and oral metoprolol, and was admitt ed to the hospital under my service. The patient has converted to sinus rhythm and ever since she wa s admitted to telemetry unit, she has remained in sinus rhythm overnight without any recurrence of at rial fibrillation. She did have about 7-8 second runs of SVT overnight, but no recurrence of atrial fibrillation reported. This morning when I saw her, she was sitting in chair, feeling fine. Denied any complaints this morning. Allergies: NO KNOWN ALLERGIES. Medications: Aspirin 325 mg daily, atorvastatin 10 mg daily at bedtime, losartan/HCTZ 100/12.5 one t ablet daily, metoprolol succinate 25 mg daily, montelukast 10 mg daily, oxybutynin 5 mg daily, sertra line 25 mg daily with breakfast, trazodone 50 mg daily at bedtime. Review of Systems: Constitutional: As mentioned above. Cardiovascular: As mentioned above. Respiratory: As mentioned above. All other systems reviewed and negative. Past Medical History: Significant for thyroid nodule and had negative thyroid biopsy in 2019 as well as this year at [facility]. Prior history of asthma, hypertension, mixed hyperlipidemia, paroxysma l atrial fibrillation, gastroesophageal reflux disease, left breast cancer in April 2021 and papilloma of right breast April 2020, depression. Past Surgical History: Tonsillectomy, bilateral lumpectomy June 23, 2021, left breast was due to c ancer, right breast was due to papilloma, hysterectomy, basal cell carcinoma removed from nose Septem 2021 and cosmetic surgery on the face in the form of face-lift. Family History: Father , had aneurysm of aorta and colon cancer. Mother had heart disease, stro ke, and breast cancer. Brother, coronary artery disease. Sister, heart disease. Social History: Prior history of smoking, not at present time. Use of alcohol, glass of wine daily. Physical Examination: Vital Signs: This morning; temperature 97.6, pulse 65, respiratory rate 17, blood pressure 126/59, o xygen saturation 96% on room air. Height 5 feet 7 inches, weight 170 pounds. General: Awake, alert, oriented, not in distress. HEENT: Head atraumatic, normocephalic. Conjunctivae nonerythematous. Sclerae white. Mouth, no thr ush or edema noted. Ears/Nose, no mass, lesion, discharge noted. Neck: Supple. No JVD, lymph nodes, bruit, thyromegaly noted. Lungs: Bilateral good equal air entry. Clear to auscultation. No rhonchi. No rales. Heart: Normal heart sounds, no murmur or gallop. Abdomen: Soft, bowel sounds normal. No guarding, rigidity, tenderness, mass, hepatosplenomegaly, dis tention, or bruit noted. Extremities: No leg edema. No calf tenderness. Skin: No rash, ulcer, cellulitis. Lymphatics: No lymph node enlargement in neck, supraclavicular, infraclavicular region. Neuro: No focal neurological deficit. Chest: Unremarkable. External Genitalia: Deferred. Rectal: Deferred. Laboratory Data: Yesterday; white count 5, hemoglobin 12.2, platelets 158. Today; white count 4.1, hemoglobin 10.5, platelets 135. Chemistry yesterday; sodium 138, potassium 4, chloride 110, bicarb 2 3, BUN 12, creatinine 0.88, glucose 114. Lactic acid 0.8, total bilirubin 0.7, AST 90, ALT 129, spencer line phosphatase 141. Troponin first set 19.6, second set 25.8. ProBNP 1159. This morning; sodium 140, potassium 3.8, chloride 110, bicarb 28, BUN 11, creatinine 0.51, glucose 92, magnesium 2.1. Danay st x-ray, no acute cardiopulmonary changes. EKG when she came into ER was atrial fibrillation with r apid ventricular rate. Urinalysis was normal. COVID-19 test negative. Influenza A and B and strep test negative. Hospital Course: After the patient was evaluated in ER, she received IV and oral metoprolol and Love nox was started. She received Lovenox yesterday and this morning. When I saw her, she was feeling f ine, asymptomatic. 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 We have not seen any recurrence of atrial fibrillation. The patient probably had a febrile illness due to viral infection and at this point no need for any further intervention for that febrile illness. Her abnormal liver function test and mild pancytopenia that we are noticin g is likely due to this viral infection and we will follow up on the blood tests this coming week for monitoring of all these abnormalities. I have discussed with her regarding the importance of follow up with her game artist, Dr. Lopez and she will contact his office tomorrow to schedule a followup appointment. I have also discussed with her regarding the risk benefit ratio of anticoagulation ther alan and recommended oral anticoagulation therapy like Eliquis and she understands and agrees to take such treatment and she will start this dose as of this evening. The patient tells me her katherine Alvarez as well, but she does not know the dose, but I have instructed her to take 5 mg 2 times a day, so she will look at her 's medication bottle and use appropriate amount to get the dose 5 mg 2 times a day while she is waiting on her prescription to be picked up at her local pharmacy mariaa use of this holiday. I have also recommended her to increase dose of metoprolol from 25 mg once a da y to twice a day and to check her blood pressure 2 times a day, record it and bring readings when she comes to see me and also to take readings to the game artist's office at the time of followup visit . The patient needs this further testing on outpatient basis and she will pursue this with help of h er game artist. I inspected her not to use any alcohol. Also, I have instructed her to avoid any o [id number] decongestant medication. Final Diagnoses: 1.Atrial fibrillation with rapid ventricular rate. 2.Fever. 3.Viral syndrome. 4.Pancytopenia. 5.Abnormal liver function tests. 6.Hypertension. 7.Mixed hyperlipidemia. 8.Gastroesophageal reflux disease. 9.Depression. 10.Left breast cancer. RONEY/MODL Voice ID: [id number] Report ID: [id number]
== END 2023-05-09 10:36 | disposition home or self-care (01) ==
LOC: ER 13:23 → INTOOBSV 15:42 → ERHOLD 15:42 → 2ND 17:09
PROVIDERS: ADMIT Internal Medicine; ATTEND Internal Medicine
DX: B34.9 Viral infection, unspecified (principal); I48.20 Chronic atrial fibrillation, unspecified; R50.9 Fever, unspecified; D61.818 Other pancytopenia; I10 Essential (primary) hypertension; E78.2 Mixed hyperlipidemia; K21.9 Gastro-esophageal reflux disease without esophagitis; F32.A Depression, unspecified; C50.912 Malignant neoplasm of unspecified site of left female breast; R79.89 Other specified abnormal findings of blood chemistry; Z20.822 Contact with and (suspected) exposure to COVID-19
CPT/HCPCS: 93005; 87040 ×2; 87070; 85025 ×2; 81001; 80048; 36415; 83735; 85610; 87081; 83605; 85730; 84484 ×2; 80053; 83880; 87804 ×2; 71045; 96375; 96372; 96374; 99285; 87811; J3475; J7040; G0378

== ENCOUNTER 2024-07-11 10:06 | Emergency (ER) | payer OTHER ==
--- OUTSIDE RECORDS SUMMARY | 2024-07-11 10:09 | XMS REPORT | Clinical Summary ---
Author Name Unknown Organization [facility] Address [address] [place] [address] Care Team Providers Care Certified Activities Director Name Role Phone Josemanuel Bernard MD Unavailable [phone] Hermes Thomas MD Unavailable Lianna Johns MD Unavailable Izabella Romano MD Unavailable Melissa Barnard MD Unavailable Allergies Active Allergy Reactions Criticality Noted Date Comments Codeine GI Intolerance 01/07/2010 Hydrocodone GI Intolerance 07/01/2021 N/V Propoxyphene GI Intolerance 04/18/2021 Propoxyphene Hcl 01/07/2010 Medications Medication Sig Dispensed Refills Start Date End Date Status montelukast (SINGULAIR) 10 mg tablet Take 1 tablet (10 mg) by mouth daily. Active simvastatin (ZOCOR) 20 mg tablet Take 1 tablet by mouth daily. Active metoprolol succinate (TOPROL XL) 25 mg 24 hr tablet Take 1 tablet (25 mg) by mouth daily. 05/26/2021 Active atorvastatin (LIPITOR) 10 mg tablet Take 1 tablet (10 mg) by mouth daily. 05/28/2021 Active losartan-hydrochlor othiazide (HYZAAR) 100-12.5 mg per tablet TAKE 1 TABLET BY MOUTH DAILY 05/16/2021 Active sertraline (ZOLOFT) 25 mg tablet Take 1 tablet (25 mg) by mouth every morning. Active mupirocin (BACTROBAN) 2% ointmentIndications :Intraductal carcinoma in situ of left breast Apply topically to affected area(s) twice daily. 22 g 06/23/2021 Active traMADol (Ultram) 50 mg tabletIndications:I ntraductal carcinoma in situ of left breast Take 1 tablet (50 mg) by mouth every 6 (six) hours as needed for moderate pain or severe pain. 12 tablet 06/26/2021 Active Additional Information Patient not taking.Reason: No longer taking, Reported on 01/08/2022 traZODone (DESYREL) 25 mg half-tablet Take 1 split tablet (25 mg) by mouth. Active aspirin 325 mg tablet Take 1 tablet (325 mg) by mouth. Active oxybutynin (DITROPAN-XL) 5 mg 24 hr tablet daily. 05/23/2022 Active peg 3350-electrolytes (Golytely) 236-22.74-6.74 g solutionIndications :Colonoscopy planned Mix as directed and drink as directed. 4000 mL 11/12/2022 Active Active Problems Patient Care Coordination No te Formatting of this note migh t be different from the original. 11/12/2022 Patient will have COVID testing at an outside facility - Toy Problem Noted Date Diagnosed Date Personal history of colon polyps 11/12/2022 Overview: Added automatically from request for surgery [id number] Other specified disorder of breast 07/01/2021 Estrogen receptor positive status (ER+) 06/20/20 21 Intraductal papilloma of right breast 05/08/2021 Intraductal carcinoma in situ of left breast Cancer Staging:Clinical stage from 05/15/2021:Stage 0(cTis (DCIS), cN0, cM0, ER+, IL+, HER2: Not Assessed) - Signed by Dora Ortiz PA on 05/16/2021 Last Assessment & Plan: Ms. Wiseman is a 71 y/o female s/p bilateral segmental mastectomies, L SNBX and bilateral mastopexy by Drs. 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 She did not receive adjuvant XRT. She has no evidence of new disease or recurrence on breast exam or breast imaging. She has asked if she can eliminate US for future imaging surveillance. We will plan to bring her back in one year with bilateral diagnostic MMG. Encounters Date Type Department Care Team Description 04/26/2024 Telephone [facility] [address] [facility] [address] [place] [address] Mckenna Marquez RN 02/23/2024 10:15 AM CDT Ancillary Procedure [facility] [address] [facility] [address] [place] [address] Dora Ortiz PA-C Breast cancer screening after 07/12/2023 Immunizations Name Administration Dates Next Due Moderna SARS-CoV-2 Vaccination 01/27/2021,2020 Surgical History Surgery Date Site/Laterality Comments HYSTERECTOMY 11/08/2010 - 11/07/2011 With BSO for bleeding SQUAMOUS CELL CARCINOMA EXCISION 04/08/2021 - 05/07/2021 Left left cheek BREAST BIOPSY 11/08/1986 - 11/07/1987 Left x 1; benign BREAST CYST ASPIRATION Bilateral multiple times OOPHORECTOMY IL MASTECTOMY PARTIAL 06/23/2021 Breast/Bilateral Procedure: SEGMENTAL MASTECTOMY - SEED LOC; Surgeon: Ted Arias MD; Location: MAIN OR; Service: SURG ONC - [place] INJ RADIOACTIVE TRACER FOR ID OF SENTINEL NODE 06/23/2021 Breast/Left Procedure: ISOTOPE INJECTION FOR SENTINEL NODE BIOPSY; Surgeon: Ted Arias MD; Location: MAIN OR; Service: SURG ONC - [place] INTRAOP SENTINEL LYMPH NODE ID W/DYE INJECTION 06/23/2021 Axilla/Left Procedure: INTRAOPERATIVE LYMPHATIC MAPPING; Surgeon: Ted Arias MD; Location: MAIN OR; Service: SURG ONC - [place] BX/EXC LYMPH NODE OPEN DEEP AXILLARY NODE 06/23/2021 Axilla/Left Procedure: SENTINEL NODE BIOPSY - AXILLA; Surgeon: Ted Arias MD; Location: MAIN OR; Service: SURG ONC - [place] IL MASTOPEXY 06/23/2021 Breast/Bilateral Procedure: MASTOPEXY; Surgeon: Izabella Romano MD; Location: MAIN OR; Service: PLS - PLASTIC SURGERY Medical History Medical History Date Comments Hypertension Hypercholesterolemia Asthma Fibrocystic disease of breast Cyst of breast Family History Medical History Relation Name Comments Melanoma Brother Squamous cell carcinoma Brother On h is head Colon cancer Father Breast cancer Mother after the surgery 6 weeks later Relation Name Status Comments Brother Alive Father Mother Social History Tobacco Use Types Packs/Day Years Used Date Smoking Tobacco: Former Smokeless Tobacco: Never Tobacco Cessation:Counseling Given: Yes Comments:smoked for 2 years Alcohol Use Standard Drinks/Week Comments Yes 7 (1 standard drink = 0.6 oz pur e alcohol) nightly Sex and Gender Information Value Date Recorded Sex Assigned at Female 04/10/2021 2:53 PM CDT Gender Identity Female 04/10/2021 2:53 PM CDT Sexual Orientation Straight 04/10/2021 2: 53 PM CDT Job Start Date Occupation Industry Not on file Not on file Not on file Obstetrics History Para Term AB IAB SAB Ectopic Multiple Livin g Live Births 2 2 Date Outcome GA Total Labor Labor/2nd/3rd Weight Sex Type Anes PTL Rosario A1 A5 Name Clin Para Para Comments P: 2 Menarche: at age 11 parity: at age 17 history: 3 months total control pills use: 10 years total Hormone replacement therapy use: BioTe compounded x3 years LMP: hysterectomy at age 60 surgical menopause Bra Size:38 C Plan of Treatment Health Maintenance Due Date Last Done Comments Pneumococcal Vaccine: 65+ Ye ars (1 of 1 - PCV) 2014 COVID-19 Vaccine (2022- season) 2024, 12/28/2020 Influenza Vaccine 07/09/2024 Procedures Procedure Name Priority Date/Time Associated Diagnosis Comments MAMMO DIGITAL DIAGNOSTIC BILATERAL W OG Routine 02/23/2024 11:15 AM CDT Breast cancer screening after 07/12/2023 Results * Mammography Digital Diagnostic Bilateral with Og (02/23/2024 11:15 AM CDT) Anatomical Region Laterality Modality Breast Bilateral Mammography 02/23/2024 11:1 7 AM CDT Impressions 02/23/2024 11:17 AM CDT There is no mammographic evidence of malignancy. Follow-up mammogram in 1 year is recommended. BI-RADS Category 2: Benign Finding(s) Narrative 02/23/2024 11:17 AM CDT CLINICAL INDICATION: Patient is a 73 year old female and is seen for history of breast cancer MAMMO DIGITAL DIAGNOSTIC BILATERAL W OG Digital Mammogram evaluated with Computer Aided Detection (CAD). COMPARISON: The present examination has been compared to prior imaging studies performed at an outside location on 10/17/2019 and 10/22/2020, and at [facility] on 04/18/2021, 01/07/2022 and 03/04/2023. FINDINGS: There are scattered areas of fibroglandular density. 1: There is a stable post-surgical scar in the axillary tail of the left breast. Segmentectomy was performed for in situ ductal carcinoma in 2020. There is no mammographic evidence for recurrence. 2: There are stable post reduction changes in both breasts. Tomosynthesis performed in CC and MLO projections. Procedure Note Nitza Caruso MD - 02/23/2024 CLINICAL INDICATION: Patient is a 73 year old female and is seen for history of breast cancer MAMMO DIGITAL DIAGNOSTIC BILATERAL W OG Digital Mammogram evaluated with Computer Aided Detection (CAD). COMPARISON: The present examination has been compared to prior imaging studiesperformed at an outside location on 10/17/2019 and 10/22/2020, and at [facility] on 04/18/2021, 01/07/2022 and 03/04/2023. FINDINGS: There are scattered areas of fibroglandular density. 1: There is a stable post-surgical scar in the axillary tail of theleft breast. Segmentectomy was performed for in situ ductal carcinoma [id number]. There is no mammographic evidence for recurrence. 2: There are stable post reduction changes in both breasts. Tomosynthesis performed in CC and MLO projections. IMPRESSION: There is no mammographic evidence of malignancy. Follow-up mammogram in 1 year is recommended. BI-RADS Category 2: Benign Finding(s) Dora Ortiz PA-C IMG MAMMOGRAPHY ORDERABLES after 07/12/2023 Advance Directives * Full Code (Latest Code Status on File) Date Activated Date Inactivated Comments 06/23/2021 7:30 PM 06/24/2021 12:45 AM Care Teams Certified Activities Director Relationship Specialty Start Date End Date Josemanuel Bernard MD [address] [place] [phone] [email or web address] PCP - External Primary Care Provider Internal Medicine 04/08/21 Hermes Thomas MD [address] [place] [phone] [email or web address] Physician Radiation Oncology 05/02/21 Lianna Johns MD [address] [place] [phone] [email or web address] Physician Gastroenterology, Hepatology and Nutrition 11/12/22 Izabella Romano MD [address] [place] [phone] [email or web address] Consulting Physician Plastic and Reconstructive Surgery 06/03/21 Melissa Barnadr MD [address] [place] [address] [phone] [email or web address] Consulting Physician Radiation Oncology 06/10/21
--- NOTE | 2024-07-11 11:13 | EDPHYS ---
Physician Documentation [facility] Name: Nelly Wiseman Age: 74 yrs Sex: Female : 1950 Arrival Date: 07/11/2024 Time: 10:06 Bed 12 Private MD: ED Physician Villa Galindo HPI: 07/11 15:13 This 74 yrs old Female presents to ER via Ambulatory with complaints of Shingles. rt 15:13 Patient presents to the ED with pain to the left side wrapping around to the front with rt associated rash consistent with previous episodes of shingles. The patient denies fever, chills, denies other acute complaints at this time, symptoms are moderate in severity, aching nature, no other aggravating or elevating factors.. Historical: - Allergies: 10:34 No Known Allergies; iw - PMHx: 10:33 Asthma; Atrial fibrillation; BREAST CA; High Cholesterol; Hypertensive disorder; iw - PSHx: 10:33 hysterectomy; iw ROS: 15:16 Constitutional: Negative for fever, chills, and weight loss, Cardiovascular: Negative rt for chest pain, palpitations, and edema, Respiratory: Negative for shortness of breath, cough, wheezing, and pleuritic chest pain, Abdomen/GI: Negative for abdominal pain, nausea, vomiting, diarrhea, and constipation, 15:16 Skin: Positive for Rash, Exam: 15:16 Constitutional: This is a well developed, well nourished patient who is awake, alert, rt and in no acute distress. Head/Face: Normocephalic, atraumatic. Chest/axilla: Normal chest wall appearance and motion. Nontender with no deformity. No lesions are appreciated. Cardiovascular: Regular rate and rhythm with a normal S1 and S2. No gallops, murmurs, or rubs. Normal PMI, no JVD. No pulse deficits. Respiratory: Lungs have equal breath sounds bilaterally, clear to auscultation and percussion. No rales, rhonchi or wheezes noted. No increased work of breathing, no retractions or nasal flaring. Abdomen/GI: Soft, non-tender, with normal bowel sounds. No distension or tympany. No guarding or rebound. No evidence of tenderness throughout. 15:16 Skin: Vesicular rash in a dermatomal distribution to just under the breast consistent with shingles. Vital Signs: 10:34 BP 145 / 67; Pulse 71; Resp 16; Temp 98.1; Pulse Ox 98% on R/A; Weight 76.66 kg; Height iw 5 ft. 6 in. ; Pain 10/10; 10:34 Body Mass Index 27.28 (76.66 kg, 167.64 cm) iw 10:34 Pain Scale: Adult iw MDM: 11:02 Patient medically screened. rt 15:16 Differential Diagnosis Shingles. Data reviewed: vital signs, nurses notes. Test rt considered but Not performed: Other Details Stable vital signs, clear shingles, no signs of cellulitis, labs, EKG, imaging are not indicated. Counseling: I had a detailed discussion with the patient and/or guardian regarding the historical points, exam findings, and any diagnostic results supporting the discharge/admit diagnosis, the need for outpatient follow up, to return to the emergency department if symptoms worsen or persist or if there are any questions or concerns that arise at home. Administered Medications: No medications were administered Disposition Summary: 07/11/24 11:13 Discharge Ordered Notes: Location: Home rt Problem: new rt Symptoms: are unchanged rt Condition: Stable rt Diagnosis - Shingles rt Followup: rt - With: Private Physician - When: 2 - 3 days - Reason: Discharge Instructions: - Discharge Summary Sheet rt - Shingles rt Forms: - Medication Reconciliation Form rt - Antibiotic Education rt - Prescription Opioid Use rt - Patient Portal Instructions rt - Leadership Thank You Letter rt Prescriptions: - Valtrex 1 gram Oral tablet - take 1 tablet ORAL route 2 times per day for 7 days; 14 tablet; Refills: 0, rt Product Selection Permitted - acetaminophen-codeine 300-30 mg Oral tablet - take 1 tablet ORAL route every 6 hours as needed for pain; 15 tablet; Refills: rt 0, Product Selection Permitted - gabapentin 100 mg Oral capsule - take 1 capsule ORAL route 3 times per day; 21 capsule; Refills: 0, Product rt Selection Permitted - Prednisone 20 mg Oral tablet - take 1 tablet ORAL route once daily for 5 days; 5 tablet; Refills: 0, Product rt Selection Permitted Signatures: Carrie Wu, RN RN iw Villa Galindo MD MD rt
--- NOTE | 2024-07-11 11:13 | ER ---
Nurse's Notes [facility] Name: Nelly Wiseman Age: 74 yrs Sex: Female : 1950 Arrival Date: 07/11/2024 Time: 10:06 Bed 12 Private MD: Diagnosis: Shingles Presentation: 07/11 10:32 Chief complaint: Patient states: pain to left side , rash under left breast , started iw yesterday. Coronavirus screen: At this time, the client does not indicate any symptoms associated with coronavirus-19. Ebola Screen: No symptoms or risks identified at this time. Initial Sepsis Screen: Does the patient meet any 2 criteria? No. Patient's initial sepsis screen is negative. Does the patient have a suspected source of infection? No. Patient's initial sepsis screen is negative. Risk Assessment: Do you want to hurt yourself or someone else? Patient reports no desire to harm self or others. 10:32 Method Of Arrival: Ambulatory iw 10:32 Acuity: SAVI 4 iw Historical: - Allergies: 10:34 No Known Allergies; iw - PMHx: 10:33 Asthma; Atrial fibrillation; BREAST CA; High Cholesterol; Hypertensive disorder; iw - PSHx: 10:33 hysterectomy; iw Screenin:24 [facility] ED Fall Risk Assessment (Adult) History of falling in the last 3 months, iw including since admission No falls in past 3 months (0 pts) Confusion or Disorientation No (0 pts) Intoxicated or Sedated No (0 pts) Impaired Gait No (0 pts) Mobility Assist Device Used No (0 pt) Altered Elimination No (0 pt) Score/Fall Risk Level 0 - 2 = Low Risk. Abuse screen: Denies threats or abuse. Denies injuries from another. Nutritional screening: No deficits noted. Tuberculosis screening: No symptoms or risk factors identified. Vital Signs: 10:34 BP 145 / 67; Pulse 71; Resp 16; Temp 98.1; Pulse Ox 98% on R/A; Weight 76.66 kg; Height iw 5 ft. 6 in. ; Pain 10/10; 10:34 Body Mass Index 27.28 (76.66 kg, 167.64 cm) iw 10:34 Pain Scale: Adult iw ED Course: 10:09 Patient arrived in ED. mr 10:14 Villa Galindo MD is Attending Physician. rt 10:33 Triage completed. iw 11:24 Carrie Wu, RN is Primary Nurse. iw Administered Medications: No medications were administered Outcome: 11:13 Discharge ordered by MD. rt 11:24 Discharged to home ambulatory, iw 11:24 Condition: good 11:24 Discharge instructions given to patient, Instructed on discharge instructions, follow up and referral plans. medication usage, Demonstrated understanding of instructions, follow-up care, medications, Prescriptions given X 4, 11:24 Patient left the ED. iw Signatures: Nancy Guardado, Reg Reg mr Carrie Wu, RN RN iw Villa Galindo MD MD rt
[2024-07-11 11:31] VITALS: BP 145/67; TEMP 98.1; O2SAT 98
== END 2024-07-11 11:24 | disposition home or self-care (01) ==
LOC: ER 10:06
DX: B02.9 Zoster without complications (principal)
CPT/HCPCS: 99283